=== PATIENT | male | born 1950 | race Caucasian/White ===

== ENCOUNTER 2016-08-06 21:20 | Emergency (ER) | payer MEDICARE ==
[2016-08-06] MEDS ORDERED: Ketorolac 60 MG/2 ML SDV IM ONE (21:38)
[2016-08-06] MEDS ORDERED: methylPREDNISolone Sodium Succinate 125 MG/2 ML SDV IVPUSH ONE (21:38)
--- NOTE | 2016-08-06 21:44 | EDM.PDOC ---
ED HPI GENERAL MEDICAL PROBLEM - General Chief Complaint: General Stated Complaint: SHOULDER/LEFT KNEE PAIN Time Seen by Provider: 08/06/16 21:31 - History of Present Illness INITIAL COMMENTS - FREE TEXT/NARRATIVE: HISTORY AND PHYSICAL: History of present illness: The patient is a 66-year-old male with a history of hyperlipidemia coronary artery disease with STEMI, diabetes hypertension obesity and chronic arthritic and joint pain who presents with complaints of left knee and left shoulder pain that is chronic but has worsened over the last few days. The patient states that he has been putting more pressure on these joints trying to get up off the floor where he has been sleeping due to a housing problem. He has not had a fall on the knee or the shoulder and states that this is his usual pain it has just been progressing. Patient states he has "strong pain medication" at home but that the Toradol usually helps and he would like a dose of that. Patient follows at [facility] with and according to the patient the physician has been trying to get his diabetes under better control so that he can have surgery on his knee. Patient denies any headache neck pain chest pain back pain or other extremity discomfort has been eating and drinking normally Review of systems: As per history of present illness and below otherwise all systems reviewed and negative. Past medical history: As per history of present illness and as reviewed below otherwise noncontributory. Surgical history: As per history of present illness and as reviewed below otherwise noncontributory. Social history: No reported history of drug or alcohol abuse. Family history: As per history of present illness and as reviewed below otherwise noncontributory. Physical exam: General: Well-developed obese man who is nontoxic and speaking clearly in the ED HEENT: Atraumatic, normocephalic, negative for conjunctival pallor or scleral icterus, mucous membranes moist, throat clear, neck supple, nontender, trachea midline. Lungs: Clear to auscultation, breath sounds equal bilaterally, chest nontender. Heart: S1S2, regular rate and rhythm no murmurs Abdomen: Soft, nondistended, nontender. NABS Genitourinary: Deferred. Rectal: Deferred. Extremities: Atraumatic chronic arthritic changes of bilateral knees the left more significant than the right but there is no joint effusion warmth erythema or soft tissue swelling of the left knee. There are old scars seen in this area. At the left shoulder there are no palpable bony deformities noted trigger point tenderness or fullness and the patient has no range of motion passively and actively. Tenderness with this exam. The legs are, negative for cords or calf pain. Neurovascular unremarkable. Neuro: Awake, alert, oriented. Cranial nerves II through XII unremarkable. Cerebellum unremarkable. Motor and sensory unremarkable throughout. Exam nonfocal. Diagnostics: [] Therapeutics: Toradol and Solu-Medrol I discussed with the patient that I would give him 1 dose of Solu-Medrol as his blood sugar has been very variable and his provider has been trying but I thought that might help with the inflammation. He is agreeable to do this. I did not offer radiologic studies as the patient did not have any new trauma to the area and the patient elected to defer these as well. I did address the need for follow-up. Impression: Chronic arthritic pain of left knee and left shoulder Definitive disposition and diagnosis as appropriate pending reevaluation and review of above. left shoulder; left knee Pain Score (Numeric/FACES): 10 - Related Data Allergies Allergy/AdvReac Type Severity Reaction Status Date / Time morphine Allergy Shortness Verified 08/06/16 21:31 of Breath smoke Allergy Shortness Uncoded 08/06/16 21:31 of Breath Home Meds: Home Meds Esomeprazole [NexIUM] 40 mg PO BIDM 05/30/13 [History] Quinapril [Accupril] 40 mg PO BID 05/30/13 [History] Metoprolol Succinate [Toprol XL] 50 mg PO BID 06/23/13 [History] metFORMIN [Glucophage XR] 750 mg PO BID 10/11/13 [History] Aspirin [Ecotrin] 325 mg PO DAILY 07/15/14 [History] Furosemide [Lasix] 20 mg PO DAILY #14 tablet 01/16/15 [Rx] Hydrocodone/Acetaminophen [[place] 5-325 Tablet] 1 each PO Q6H PRN #20 tablet [Rx] Past Medical History - Past Health History Medical/Surgical History: Denies Medical/Surgical History HEENT History: Reports: Sinusitis Cardiovascular History: Reports: Hypertension Other Genitourinary History: complains of frequent urination at night time Musculoskeletal History: Reports: Back Pain, Chronic Endocrine/Metabolic History: Reports: Diabetes, Type II - Infectious Disease History Infectious 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 Pox - Past Surgical History HEENT Surgical History: Reports: Naso-Sinus Surgery, Tonsillectomy, Other (See Below) Cardiovascular Surgical History: Reports: Other (See Below) Social & Family History - Family History Family Medical History: Noncontributory - Tobacco Use Smoking Status *Q: Never Smoker Second Hand Smoke Exposure: No - Alcohol Use Days Per Week of Alcohol Use: 0 - Recreational Drug Use Recreational Drug Use: No ED ROS GENERAL - Review of Systems Review Of Systems: ROS reveals no pertinent complaints other than HPI. ED EXAM, GENERAL - Physical Exam Exam: See Below (See dictation) Course - Vital Signs Last Recorded V/S: Last Vital Signs Temp 36.4 C 08/06/16 21:32 Pulse 73 08/06/16 21:32 Resp 20 08/06/16 21:32 BP 151/72 H 08/06/16 21:32 Pulse Ox 93 L 08/06/16 21:32 - Orders/Labs/Meds Orders: Active Orders 24 hr Category Date Time Status Ketorolac [Toradol] Med 08/06/16 21:38 Once 60 mg IM ONETIME ONE methylPREDNISolone Sod Succ [Solu-MEDROL] Med 08/06/16 21:38 Once 125 mg IVPUSH ONETIME ONE Medication Orders Ketorolac Tromethamine (Toradol) 60 mg IM ONETIME ONE Stop: 08/06/16 21:39 Methylprednisolone Sodium Succinate (Solu-Medrol) 125 mg IVPUSH ONETIME ONE Stop: 08/06/16 21:39 Meds: Medications Generic Name Dose Route Start Last Admin Trade Name Freq PRN Reason Stop Dose Admin Ketorolac Tromethamine 60 mg 08/06/16 21:38 Toradol IM 08/06/16 21:39 ONETIME ONE Methylprednisolone Sodium Succinate 125 mg 08/06/16 21:38 Solu-Medrol IVPUSH 08/06/16 21:39 ONETIME ONE Departure - Departure Time of Disposition: 21:42 Disposition: Home, Self-Care 01 Condition: Good Clinical Impression: Chronic joint pain - Discharge Information Forms: ED Department Discharge Additional Instructions: The following information is given to patients seen in the emergency department who are being discharged to home. This information is to outline your options for follow-up care. We provide all patients seen in our emergency department with a follow-up referral. The need for follow-up, as well as the timing and circumstances, are variable depending upon the specifics of your emergency department visit. If you don't have a primary care physician on staff, we will provide you with a referral. We always advise you to contact your personal physician following an emergency department visit to inform them of the circumstance of the visit and for follow-up with them and/or the need for any referrals to a consulting specialist. The emergency department will also refer you to a specialist when appropriate. This referral assures that you have the opportunity for followup care with a specialist. All of these measure are taken in an effort to provide you with optimal care, which includes your followup. Under all circumstances we always encourage you to contact your private physician who remains a resource for coordinating your care. When calling for followup care, please make the office aware that this follow-up is from your recent emergency room visit. If for any reason you are refused follow-up, please contact the [facility] emergency department at and ask to speak to the emergency department charge nurse. [address] [place], [place] [address] [facility]--Orthopedic clinic Professional [address] [phone] Ice to areas of discomfort and use the pain medication you have at home. Please call and follow-up with your primary at [facility] as well as orthopedics clinic for further care and evaluation and return here as needed and as discussed. - My Orders Last 24 Hours: My Active Orders 08/06/16 21:38 Ketorolac [Toradol] 60 mg IM ONETIME ONE methylPREDNISolone Sod Succ [Solu-MEDROL] 125 mg IVPUSH ONETIME ONE - Assessment/Plan Last 24 Hours: My Active Orders 08/06/16 21:38 Ketorolac [Toradol] 60 mg IM ONETIME ONE methylPREDNISolone Sod Succ [Solu-MEDROL] 125 mg IVPUSH ONETIME ONE
[2016-08-06] MEDS ORDERED: methylPREDNISolone Sodium Succinate 125 MG/2 ML SDV IM ONE (21:51)
[2016-08-06 22:54] VITALS: BP 160/90
== END 2016-08-06 22:30 | disposition home or self-care (01) ==
LOC: MW.ED 21:20
DX: G89.29 Other chronic pain (principal); M25.512 Pain in left shoulder; M25.562 Pain in left knee; I10 Essential (primary) hypertension; E11.9 Type 2 diabetes mellitus without complications; I25.10 Atherosclerotic heart disease of native coronary artery without angina pectoris; I25.2 Old myocardial infarction; E66.9 Obesity, unspecified; Z88.5 Allergy status to narcotic agent; Z79.84 Long term (current) use of oral hypoglycemic drugs; Z79.82 Long term (current) use of aspirin; Z79.899 Other long term (current) drug therapy; Z98.890 Other specified postprocedural states
CPT/HCPCS: 96372; 99283; J1885; J2930

== ENCOUNTER 2016-08-26 23:08 | Emergency (ER) | payer MEDICARE ==
--- NOTE | 2016-08-26 23:52 | EDM.PDOC ---
ED HPI GENERAL MEDICAL PROBLEM - General Chief Complaint: Lower Extremity Injury/Pain Stated Complaint: POSSIBLY POPPED RIGHT HIP OUT OF JOINT Time Seen by Provider: 08/26/16 23:50 - History of Present Illness INITIAL COMMENTS - FREE TEXT/NARRATIVE: HISTORY AND PHYSICAL: History of present illness: Patient is 66-year-old male thinks that medical history presents with concern of right hip and lower back pain he states he felt like he twisted his hip or lower back and had some discomfort this is improved since arrival he denies any numbness weakness incontinence or retention bowel or bladder patient uses a cane for his chronically painful knees Review of systems: As per history of present illness and below otherwise all systems reviewed and negative. Past medical history: As per history of present illness and as reviewed below otherwise noncontributory. Surgical history: As per history of present illness and as reviewed below otherwise noncontributory. Social history: No reported history of drug or alcohol abuse. Family history: As per history of present illness and as reviewed below otherwise noncontributory. Physical exam: HEENT: Atraumatic, normocephalic, pupils reactive, negative for conjunctival pallor or scleral icterus, mucous membranes moist, throat clear, neck supple, nontender, trachea midline. Lungs: Clear to auscultation, breath sounds equal bilaterally, chest nontender. Heart: S1S2, regular, negative for clicks, rubs, or JVD. Abdomen: Soft, nondistended, nontender. Negative for masses or hepatosplenomegaly. Negative for costovertebral tenderness. Pelvis: Stable nontender. Genitourinary: Deferred. Rectal: Deferred. Extremities: Atraumatic, negative for cords or calf pain. Neurovascular unremarkable. Neuro: Awake, alert, oriented. Cranial nerves II through XII unremarkable. Cerebellum unremarkable. Motor and sensory unremarkable throughout. Exam nonfocal. Back: No vertebral body or point tenderness some mild paravertebral tenderness level lumbar spine full range of motion of his hip patient is able to stand on his toes back on his heel deep tendon reflexes are unremarkable was no motor or sensory deficits Diagnostics: X-ray right hip/lumbosacral spine Therapeutics: None Impression: #1 lumbosacral strain Definitive disposition and diagnosis as appropriate pending reevaluation and review of above. Right Hip Pain Score (Numeric/FACES): 8 - Related Data Allergies Allergy/AdvReac Type Severity Reaction Status Date / Time morphine Allergy Shortness Verified 08/26/16 23:25 of Breath smoke Allergy Shortness Uncoded 08/26/16 23:25 of Breath Home Meds: Home Meds Esomeprazole [NexIUM] 40 mg PO BIDM 05/30/13 [History] Quinapril [Accupril] 40 mg PO BID 05/30/13 [History] Metoprolol Succinate [Toprol XL] 50 mg PO BID 06/23/13 [History] metFORMIN [Glucophage XR] 750 mg PO BID 10/11/13 [History] Aspirin [Ecotrin] 325 mg PO DAILY 07/15/14 [History] Furosemide [Lasix] 20 mg PO DAILY #14 tablet 01/16/15 [Rx] Past Medical History - Past Health History Medical/Surgical History: Denies Medical/Surgical History HEENT History: Reports: Sinusitis Cardiovascular History: Reports: Hypertension Other Genitourinary History: complains of frequent urination at night time Musculoskeletal History: Reports: Back Pain, Chronic Endocrine/Metabolic History: Reports: Diabetes, Type II - Infectious Disease History Infectious 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 Pox - Past Surgical History HEENT Surgical History: Reports: Naso-Sinus Surgery, Tonsillectomy, Other (See Below) Cardiovascular Surgical History: Reports: Other (See Below) Social & Family History - Family History Family Medical History: Noncontributory - Tobacco Use Smoking Status *Q: Never Smoker Second Hand Smoke Exposure: No - Caffeine Use Caffeine Use: Reports: None - Alcohol Use Days Per Week of Alcohol Use: 0 - Recreational Drug Use Recreational Drug Use: No Review of Systems - Review of Systems Review Of Systems: ROS reveals no pertinent complaints other than HPI. ED EXAM, GENERAL - Physical Exam Exam: See Below (See dictation) Course - Vital Signs Last Recorded V/S: Last Vital Signs Temp 36.6 C 08/26/16 23:24 Pulse 70 08/26/16 23:24 Resp 20 08/26/16 23:24 BP 190/63 H 08/26/16 23:24 Pulse Ox 93 L 08/26/16 23:24 - Orders/Labs/Meds Orders: Active Orders 24 hr Category Date Time Status Hip Min 2V or 3V Rt [CR] Stat Exams 08/26/16 23:29 Ordered Lumbar Spine 2 or 3V [CR] Stat Exams 08/26/16 23:29 Ordered Departure - Departure Time of Disposition: 23:51 Disposition: Home, Self-Care 01 Condition: Good Clinical Impression: Lumbosacral strain, Hip injury - Discharge Information Forms: ED Department Discharge Additional Instructions: The following information is given to patients seen in the emergency department who are being discharged to home. This information is to outline your options for follow-up care. We provide all patients seen in our emergency department with a follow-up referral. The need for follow-up, as well as the timing and circumstances, are variable depending upon the specifics of your emergency department visit. If you don't have a primary care physician on staff, we will provide you with a referral. We always advise you to contact your personal physician following an emergency department visit to inform them of the circumstance of the visit and for follow-up with them and/or the need for any referrals to a consulting specialist. The emergency department will also refer you to a specialist when appropriate. This referral assures that you have the opportunity for followup care with a specialist. All of these measure are taken in an effort to provide you with optimal care, which includes your followup. Under all circumstances we always encourage you to contact your private physician who remains a resource for coordinating your care. When calling for followup care, please make the office aware that this follow-up is from your recent emergency room visit. If for any reason you are refused follow-up, please contact the [facility] emergency department at and asked to speak to the emergency department charge nurse. Continue current medications follow-up primary medical doctor on today's return as needed as discussed - My Orders Last 24 Hours: My Active Orders 08/26/16 23:29 Hip Min 2V or 3V Rt [CR] Stat Lumbar Spine 2 or 3V [CR] Stat - Assessment/Plan Last 24 Hours: My Active Orders 08/26/16 23:29 Hip Min 2V or 3V Rt [CR] Stat Lumbar Spine 2 or 3V [CR] Stat
[2016-08-27] MEDS ORDERED: Ketorolac 30 MG/ML SDV IM ONE (00:44)
[2016-08-27 01:16] VITALS: BP 156/70
--- NOTE | 2016-08-29 11:49 | CR ---
EXAM DATE: 08/26/16 PATIENT'S AGE: 66 Patient: MARIANA HARRIS Facility: [place], [place] Site . Site : 1950 Study: XRay Spine Lumbar [id number]/[id number] 11:56:40 PM Ordering Physician: Doctor Smiley Final Report: INDICATION: Status post fall. TECHNIQUE: Lumbar spine radiograph 3 view COMPARISON: 02/06/2008. FINDINGS: Postsurgical changes in the lumbar spine. Posterior and interbody fusion, extending from L1 to the L5 level. Extension to the L1 level new finding from prior study. No hardware complication. Progressive degenerative disc disease at the T12-L1 level with large anterior marginal osteophytes. IMPRESSION: 1. Posterior and interbody fusion of lumbar spine. New posterior fusion hardware at the L1 level with progressive degenerative disc disease at the T12- L1 level from 02/06/2008 study. Moderate degenerative disc disease also noted at T10-T11 and T11-T12 levels. Dictated by Willi Avalos MD @ 08/27/2016 12:04:36 AM Dictated by: Willi Avalos MD @ 08/27/2016 00:04:41 (Electronic Signature) Report Signed by Proxy. NADJA
--- NOTE | 2016-08-29 11:50 | CR ---
EXAM DATE: 08/26/16 PATIENT'S AGE: 66 Patient: MARIANA HARRIS Facility: [place], [place] Site . Site : 1950 Study: XRay Hip Right [id number] 11:57:21 PM Ordering Physician: Doctor Smiley Final Report: INDICATION: Pelvic and hip pain TECHNIQUE: AP pelvis and lateral view right hip, total of 2 images. COMPARISON: None FINDINGS: Moderate degenerative changes of right hip. No fracture or suspicious osseous lesion. Right pubic rami grossly intact. No suspicious osseous lesion. IMPRESSION: 1. Moderate right hip osteoarthritis. No acute osseous injury. Dictated by Willi Avalos MD @ 08/27/2016 12:06:18 AM Dictated by: Willi Avalos MD @ 08/27/2016 00:06:22 (Electronic Signature) Report Signed by Proxy. [email or web address]
== END 2016-08-27 01:13 | disposition home or self-care (01) ==
LOC: MW.ED 23:08
DX: S39.012A Strain of muscle, fascia and tendon of lower back, initial encounter (principal); S79.911A Unspecified injury of right hip, initial encounter; I10 Essential (primary) hypertension; E11.9 Type 2 diabetes mellitus without complications; Z88.5 Allergy status to narcotic agent; Z79.84 Long term (current) use of oral hypoglycemic drugs; Z79.82 Long term (current) use of aspirin; Z98.890 Other specified postprocedural states; X50.9XXA Other and unspecified overexertion or strenuous movements or postures, initial encounter
CPT/HCPCS: 72100; 73502; 96372; 99283; J1885; 99282

== ENCOUNTER 2016-09-14 12:07 | Observation (INO) | payer MEDICARE ==
--- NOTE | 2016-09-14 12:30 | EDM.PDOC ---
ED HPI GENERAL MEDICAL PROBLEM - General Stated Complaint: HIGH BLOOD PRESSURE, ILL, VOMITING Time Seen by Provider: 09/14/16 12:37 Source of Information: Reports: Patient History Limitations: Reports: No Limitations - History of Present Illness INITIAL COMMENTS - FREE TEXT/NARRATIVE: HISTORY AND PHYSICAL: []66-year-old male who is presenting with nausea vomiting chest tightness History of Present Illness: []Patient started becoming ill today is diaphoretic Review of Systems: As per history of present illness and below otherwise all systems reviewed and negative. Past medical history: As per history of present illness and as reviewed below otherwise noncontributory. Surgical history: As per history of present illness and as reviewed below otherwise noncontributory. Social history: No reported history of drug or alcohol abuse. Family history: As per history of present illness and as reviewed below otherwise noncontributory. Physical exam: HEENT: Atraumatic, normocehpalic, pupils reactive, negative for conjunctival pallor or scleral icterus, mucous membranes moist, throat clear, neck supple, nontender, trachea midline. Lungs: Clear to auscultation, breath sounds equal bilaterally, chest non tender. Heart: S1S2, regular, negative for clicks, rubs, or JVD. Abdomen: Soft, nondistended, nontender. Negative for masses or hepatossplenmegaly. Negative for costovertebral tenderness. Pelvis: Stable nontender. Genitourinary: Deferred. Rectal: Deferred Extremities: Atraumatic, negative for cords or calf pain. Neurovascular unremarkable. Neuro: Awake, alert, oriented. Cranial nerves II through XII unremarkable. Cerebellum unremarkable. Motor and sensory unremarkable throughout. Exam nonfocal. Discussed case with Dr. Caal who is agreeable to refer for observation on telemetry. Discussed results with patient and his and they're agreeable for observation Diagnostics: [Chest pain protocol] Therapeutics: [Zofran IV fluid Nitrostat aspirin chewed] Impression: [Chest pain resolved Vomiting] Plan: Refer for observation on telemetry[] Definitive disposition and diagnosis as appropriate pending reevaluation and review of above. Onset: Today, Sudden Duration: Hour(s):, Getting Worse Location: Reports: Generalized Quality: Reports: Pressure Severity: Moderate Worsens with: Reports: None Associated Symptoms: Reports: Nausea/Vomiting forehead Pain Score (Numeric/FACES): 7 - Related Data Allergies Allergy/AdvReac Type Severity Reaction Status Date / Time morphine Allergy Shortness Verified 09/14/16 12:34 of Breath smoke Allergy Shortness Uncoded 09/14/16 12:34 of Breath Home Meds: Home Meds Esomeprazole [NexIUM] 40 mg PO BIDM 05/30/13 [History] Quinapril [Accupril] 40 mg PO BID 05/30/13 [History] Metoprolol Succinate [Toprol XL] 50 mg PO BID 06/23/13 [History] metFORMIN [Glucophage XR] 750 mg PO BID 10/11/13 [History] Aspirin [Ecotrin] 325 mg PO DAILY 07/15/14 [History] Furosemide [Lasix] 20 mg PO DAILY #14 tablet 01/16/15 [Rx] Past Medical History - Past Health History Medical/Surgical History: Denies Medical/Surgical History HEENT History: Reports: Sinusitis Cardiovascular History: Reports: Hypertension Other Genitourinary History: complains of frequent urination at night time Musculoskeletal History: Reports: Back Pain, Chronic Endocrine/Metabolic History: Reports: Diabetes, Type II - Infectious Disease History Infectious 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 Pox - Past Surgical History HEENT Surgical History: Reports: Naso-Sinus Surgery, Tonsillectomy, Other (See Below) Cardiovascular Surgical History: Reports: Other (See Below) Social & Family History - Family History Family Medical History: Noncontributory - Tobacco Use Smoking Status *Q: Never Smoker Second Hand Smoke Exposure: No - Caffeine Use Caffeine Use: Reports: None - Alcohol Use Days Per Week of Alcohol Use: 0 - Recreational Drug Use Recreational Drug Use: No ED ROS GENERAL - Review of Systems Review Of Systems: ROS reveals no pertinent complaints other than HPI. ED EXAM, GENERAL - Physical Exam Exam: See Below (See dictation) EKG INTERPRETATION EKG Date: 09/14/16 Rhythm: NSR Rate (Beats/Min): 71 Comparison: No Change Course - Vital Signs Last Recorded V/S: Last Vital Signs Temp 36.0 C 09/14/16 12:35 Pulse 82 09/14/16 13:08 Resp 18 09/14/16 13:08 BP 128/42 L 09/14/16 13:08 Pulse Ox 94 L 09/14/16 13:08 - Orders/Labs/Meds Orders: Active Orders 24 hr Category Date Time Status Patient Status [ADT] Stat ADT 09/14/16 14:16 Active Cardiac Monitoring [RC] . DIRECTED Care 09/14/16 12:38 Active EKG 12 Lead [EKG Documentation Completion] [RC] STAT Care 09/14/16 12:15 Active EKG Documentation Completion [RC] STAT Care 09/14/16 12:38 Inactive Pulse Oximetry [RC] ASDIRECTED Care 09/14/16 12:38 Active CULTURE BLOOD [BC] Stat Lab 09/14/16 12:53 Received CULTURE BLOOD [BC] Stat Lab 09/14/16 13:12 Received UA W/MICROSCOPIC [URIN] Stat Lab 09/14/16 12:38 Uncollected Sodium Chloride 0.9% [Saline Flush] Med 09/14/16 12:38 Active 10 ml FLUSH ASDIRECTED PRN Sodium Chloride 0.9% [Saline Flush] Med 09/14/16 12:38 Active 2.5 ml FLUSH ASDIRECTED PRN Blood Culture x2 Reflex Set [OM.PC] Stat Oth 09/14/16 12:38 Ordered Saline Lock Insert [OM.PC] Stat Oth 09/14/16 12:38 Ordered Medication Orders Sodium Chloride (Saline Flush) 10 ml FLUSH ASDIRECTED PRN PRN Reason: Keep Vein Open Sodium Chloride (Saline Flush) 2.5 ml FLUSH ASDIRECTED PRN PRN Reason: Keep Vein Open Labs: Laboratory Tests 09/14/16 09/14/16 09/14/16 Range/Units 13:12 13:12 13:12 WBC 7.19 (4.0-11.0) K/uL RBC 4.70 (4.50-5.90) M/uL Hgb 13.9 (13.0-17.0) g/dL Hct 41.5 (38.0-50.0) % MCV 88.3 (80.0-98.0) fL MCH 29.6 (27.0-32.0) pg MCHC 33.5 (31.0-37.0) g/dL RDW Std Deviation 44.3 (28.0-62.0) fl RDW Coeff of Edita 14 (11.0-15.0) % Plt Count 95 L (150-400) K/uL MPV 12.10 H (7.40-12.00) fL Neut % (Auto) 70.0 (48.0-80.0) % Lymph % (Auto) 17.8 (16.0-40.0) % Major % (Auto) 10.0 (0.0-15.0) % Eos % (Auto) 1.9 (0.0-7.0) % Baso % (Auto) 0.3 (0.0-1.5) % Neut # (Auto) 5.0 (1.4-5.7) K/uL Lymph # (Auto) 1.3 (0.6-2.4) K/uL Major # (Auto) 0.7 (0.0-0.8) K/uL Eos # (Auto) 0.1 (0.0-0.7) K/uL Baso # (Auto) 0.0 (0.0-0.1) K/uL Nucleated RBC % 0.0 /100WBC Nucleated RBCs # 0 K/uL INR (0.86-1.11) Lactate 1.9 (0.20-2.00) mmol/L Sodium 136 (136-146) mmol/L Potassium 4.2 (3.5-5.1) mmol/L Chloride 103 (98-110) mmol/L Carbon Dioxide 24 (21-31) mmol/L BUN 21 (6.0-23.0) mg/dL Creatinine 1.1 (0.6-1.5) mg/dL Est Cr Clr Drug Dosing TNP Estimated GFR (MDRD) > 60.0 ml/min Glucose 212 H (60-110) mg/dL Calcium 8.4 L (8.8-10.8) mg/dL Total Bilirubin 0.5 (0.1-1.5) mg/dL AST 21 (5-40) IU/L ALT 17 (8-54) IU/L Alkaline Phosphatase 62 (40-150) Ammonia (14-68) UG/DL Troponin I (0.0-0.29) NG/ML Total Protein 6.5 (6.0-8.0) g/dL Albumin 3.5 (3.4-4.8) g/dL Globulin 3.0 (2.0-3.5) g/dL Albumin/Globulin Ratio 1.2 L (1.3-2.8) Amylase 41 (10-90) U/L 09/14/16 09/14/16 09/14/16 Range/Units 13:12 13:12 13:12 WBC (4.0-11.0) K/uL RBC (4.50-5.90) M/uL Hgb (13.0-17.0) g/dL Hct (38.0-50.0) % MCV (80.0-98.0) fL MCH (27.0-32.0) pg MCHC (31.0-37.0) g/dL RDW Std Deviation (28.0-62.0) fl RDW Coeff of Edita (11.0-15.0) % Plt Count (150-400) K/uL MPV (7.40-12.00) fL Neut % (Auto) (48.0-80.0) % Lymph % (Auto) (16.0-40.0) % Major % (Auto) (0.0-15.0) % Eos % (Auto) (0.0-7.0) % Baso % (Auto) (0.0-1.5) % Neut # (Auto) (1.4-5.7) K/uL Lymph # (Auto) (0.6-2.4) K/uL Major # (Auto) (0.0-0.8) K/uL Eos # (Auto) (0.0-0.7) K/uL Baso # (Auto) (0.0-0.1) K/uL Nucleated RBC % /100WBC Nucleated RBCs # K/uL INR 1.01 (0.86-1.11) Lactate (0.20-2.00) mmol/L Sodium (136-146) mmol/L Potassium (3.5-5.1) mmol/L Chloride (98-110) mmol/L Carbon Dioxide (21-31) mmol/L BUN (6.0-23.0) mg/dL Creatinine (0.6-1.5) mg/dL Est Cr Clr Drug Dosing Estimated GFR (MDRD) ml/min Glucose (60-110) mg/dL Calcium (8.8-10.8) mg/dL Total Bilirubin (0.1-1.5) mg/dL AST (5-40) IU/L ALT (8-54) IU/L Alkaline Phosphatase (40-150) Ammonia 51 (14-68) UG/DL Troponin I < 0.10 (0.0-0.29) NG/ML Total Protein (6.0-8.0) g/dL Albumin (3.4-4.8) g/dL Globulin (2.0-3.5) g/dL Albumin/Globulin Ratio (1.3-2.8) Amylase (10-90) U/L Meds: Medications Generic Name Dose Route Start Last Admin Trade Name Freq PRN Reason Stop Dose Admin Sodium Chloride 10 ml 09/14/16 12:38 Saline Flush FLUSH ASDIRECTED PRN Keep Vein Open Sodium Chloride 2.5 ml 09/14/16 12:38 Saline Flush FLUSH ASDIRECTED PRN Keep Vein Open Discontinued Medications Generic Name Dose Route Start Last Admin Trade Name Freq PRN Reason Stop Dose Admin Aspirin 324 mg 09/14/16 12:46 09/14/16 13:00 Aspirin PO 09/14/16 12:47 324 mg ONETIME ONE Administration Famotidine 20 mg 09/14/16 12:47 09/14/16 12:55 Pepcid IVPUSH 09/14/16 12:48 20 mg ONETIME ONE Administration Sodium Chloride 1,000 mls @ 999 mls/hr 09/14/16 12:37 09/14/16 12:59 Normal Saline IV 09/14/16 13:37 999 mls/hr STAT ONE Administration Nitroglycerin 0.4 mg 09/14/16 12:47 09/14/16 12:59 Nitrostat SL 09/14/16 12:48 0.4 mg ONETIME ONE Administration Ondansetron HCl 4 mg 09/14/16 12:37 09/14/16 12:47 Zofran IVPUSH 09/14/16 12:38 4 mg ONETIME ONE Administration Departure - Departure Time of Disposition: 14:19 Disposition: Refer to Observation Condition: Good Clinical Impression: Chest pain Qualifiers: Chest pain type: unspecified Qualified Code(s): R07.9 - Chest pain, unspecified - Discharge Information - My Orders Last 24 Hours: My Active Orders 09/14/16 12:15 EKG 12 Lead [EKG Documentation Completion] [RC] STAT 09/14/16 12:38 Cardiac Monitoring [RC] . DIRECTED EKG Documentation Completion [RC] STAT Pulse Oximetry [RC] ASDIRECTED UA W/MICROSCOPIC [URIN] Stat Sodium Chloride 0.9% [Saline Flush] 10 ml FLUSH ASDIRECTED PRN Sodium Chloride 0.9% [Saline Flush] 2.5 ml FLUSH ASDIRECTED PRN Blood Culture x2 Reflex Set [OM.PC] Stat Saline Lock Insert [OM.PC] Stat 09/14/16 12:53 CULTURE BLOOD [BC] Stat 09/14/16 13:12 CULTURE BLOOD [BC] Stat 09/14/16 14:16 Patient Status [ADT] Stat - Assessment/Plan Last 24 Hours: My Active Orders 09/14/16 12:15 EKG 12 Lead [EKG Documentation Completion] [RC] STAT 09/14/16 12:38 Cardiac Monitoring [RC] . DIRECTED EKG Documentation Completion [RC] STAT Pulse Oximetry [RC] ASDIRECTED UA W/MICROSCOPIC [URIN] Stat Sodium Chloride 0.9% [Saline Flush] 10 ml FLUSH ASDIRECTED PRN Sodium Chloride 0.9% [Saline Flush] 2.5 ml FLUSH ASDIRECTED PRN Blood Culture x2 Reflex Set [OM.PC] Stat Saline Lock Insert [OM.PC] Stat 09/14/16 12:53 CULTURE BLOOD [BC] Stat 09/14/16 13:12 CULTURE BLOOD [BC] Stat 09/14/16 14:16 Patient Status [ADT] Stat
[2016-09-14] MEDS ORDERED: Ondansetron 4 MG/2 ML SDV IVPUSH ONE (12:37)
[2016-09-14] MEDS ORDERED: Sodium Chloride 0.9% 1,000 ML IV ONE (12:37)
[2016-09-14] MEDS ORDERED: Sodium Chloride 0.9% 2.5 ML Syringe FLUSH PRN (12:38)
[2016-09-14] MEDS ORDERED: Sodium Chloride 0.9% 10 ML Syringe FLUSH PRN (12:38)
[2016-09-14] MEDS ORDERED: Aspirin 81 MG Tab.Chew PO ONE (12:46)
[2016-09-14] MEDS ORDERED: Famotidine 20 MG/2 ML SDV IVPUSH ONE (12:47)
[2016-09-14] MEDS ORDERED: Nitroglycerin 0.4 MG Tab.SL SL ONE (12:47)
[2016-09-14 13:47] LABS: CHLORIDE,CL 103 mmol/L (98-110); SODIUM,NA 136 mmol/L (136-146)
--- NOTE | 2016-09-14 14:14 | CR ---
EXAMINATION: Portable chest radiograph. HISTORY: Chest pain. Comparison: 01/15/2015. FINDINGS: The trachea is midline. The heart is borderline in size. The cardiomediastinal silhouette is within normal limits. No pulmonary infiltrates, effusions or pneumothorax. Osseous structures appear unremarkable. IMPRESSION: No acute cardiopulmonary process.
--- NOTE | 2016-09-14 16:15 | PCM.HP ---
H&P History of Present Illness - General Date of Service: 09/14/16 Admit Problem/Dx: Chest pain Source of Information: Patient History Limitations: Reports: No Limitations - History of Present Illness Initial Comments - Free Text/Narative: This 66 year old male with pmh which is significant for CAD with stents x8, TN , HTN, morbid obesity, and chronic pain presented to the ED today with complaints of chest tightness. He reports feeling ill this morning with nausea and vomiting and started experiencing this chest tightness. He reports some SOB. Denies diaphoresis or palpitations. He denies eating any strange or bad foods. No diarrhea. He reports this tightness is different from previous TN episodes, which were more midsternal pain with radiation to jaw and L arm. At the time of his chest tightness he checked his BP, which was elevated 220/100s in both arms. This is abnormal for him. He walks infrequently due to chronic bilateral knee pain, he is in need of knee replacements but was instructed to lose weight and better management of DM. Did have a chemical stress test 6-8 months ago in [place], [place], he reports everything was good and did not need any further stenting. In the ED Plt noted to be 75, currently on Plavix. No bleeding. Troponin negative. EKG SR with no acute ST segment changes. No change from previous EKGs. CXR negative. PCP, Dr. Murrell forehead Pain Score (Numeric/FACES): 7 - Related Data Allergies/Adverse Reactions: Allergies Allergy/AdvReac Type Severity Reaction Status Date / Time morphine Allergy Shortness Verified 09/14/16 12:34 of Breath smoke Allergy Shortness Uncoded 09/14/16 12:34 of Breath Home Medications: Home Meds Esomeprazole [NexIUM] 40 mg PO ACBREAKFAST 05/30/13 [History] Quinapril [Accupril] 40 mg PO BID 05/30/13 [History] Metoprolol Succinate [Toprol XL] 100 mg PO DAILY 06/23/13 [History] metFORMIN [Glucophage XR] 750 mg PO BIDMEALS 10/11/13 [History] ClonazePAM [KlonoPIN] 0.5 mg PO BID PRN 09/14/16 [History] Fluticasone Propionate [Flonase] 2 sprays NASBOTH DAILY PRN 09/14/16 [History] Furosemide [Lasix] 40 mg PO DAILY PRN 09/14/16 [History] HYDROmorphone HCl [Dilaudid] 8 mg PO Q4H PRN 09/14/16 [History] Insulin Glarg,Human.Rec.Analog [LantUS Solostar] 55 units SUBCUT BEDTIME [History] Insulin Lispro [Humalog Kwikpen U-200] 20 units SUBCUT TIDAC 09/14/16 [History] Clopidogrel [Plavix] 75 mg PO DAILY #0 09/15/16 [Rx] Hydrochlorothiazide 25 mg PO DAILY #30 tablet 09/15/16 [Rx] Past Medical History - Past Health History Medical/Surgical History: Denies Medical/Surgical History HEENT History: Reports: Sinusitis Cardiovascular History: Reports: Blood Clots/VTE/DVT, CAD, Hypertension, [place], Stents (x8). Denies: Afib Respiratory History: Reports: Sleep Apnea (does not use CPAP). Denies: COPD Genitourinary History: Denies: Acute Renal Failure, Chronic Renal Insuffiency Other Genitourinary History: complains of frequent urination at night time Musculoskeletal History: Reports: Back Pain, Chronic, Osteoarthritis (bilateral knees) Endocrine/Metabolic History: Reports: Diabetes, Type II, Obesity/BMI 30+. Denies: Hypothyroidism - Infectious Disease History Infectious 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 Pox - Past Surgical History HEENT Surgical History: Reports: Naso-Sinus Surgery, Tonsillectomy, Other (See Below) Endocrine Surgical History: Reports: None Musculoskeletal Surgical History: Reports: Knee Replacement Other Musculoskeletal Surgeries/Procedures:: left knee replacement Social & Family History - Family History Family Medical History: Noncontributory - Tobacco Use Smoking Status *Q: Never Smoker Second Hand Smoke Exposure: No - Caffeine Use Caffeine Use: Reports: None - Alcohol Use Days Per Week of Alcohol Use: 0 - Recreational Drug Use Recreational Drug Use: No - Living Situation & Occupation Living situation: Reports: Occupation: Disabled H&P Review of Systems - Review of Systems: Review Of Systems: See Below General: Reports: No Symptoms. Denies: Fever, Chills, Malaise HEENT: Reports: No Symptoms. Denies: Headaches, Sinus Congestion, Visual Changes Pulmonary: Reports: No Symptoms. Denies: Shortness of Breath, Cough, Sputum Cardiovascular: Reports: Chest Pain (tightness this morning, now gone after SL nitro), Edema Gastrointestinal: Reports: Flatus, Nausea, Vomiting. Denies: Abdominal Pain, Black Stool, Bloody Stool Genitourinary: Reports: No Symptoms. Denies: Dysuria, Frequency, Burning Musculoskeletal: Reports: No Symptoms Skin: Reports: No Symptoms Psychiatric: Reports: No Symptoms Neurological: Reports: No Symptoms Hematologic/Lymphatic: Reports: No Symptoms Immunologic: Reports: No Symptoms Exam - Exam Exam: See Below - Vital Signs Vital Signs: Last Vital Signs Temp 96.8 F 09/14/16 12:35 Pulse 64 09/14/16 15:41 Resp 18 09/14/16 15:41 BP 190/92 H 09/14/16 15:41 Pulse Ox 90 L 09/14/16 15:41 Weight: 171.549 kg - Exam General: Alert, Oriented, Cooperative HEENT: Conjunctiva Clear, Hearing Intact, Mucosa Moist & Plainedge, Nares Patent, PERRLA Neck: Supple, Trachea Midline Lungs: Clear to Auscultation, Normal Respiratory Effort Cardiovascular: Regular Rate, Regular Rhythm, Normal S1, Normal S2, Systolic Murmur GI/Abdominal Exam: Normal Bowel Sounds, Soft, Non-Tender, Other (obese abdomen) Extremities: Normal Range of Motion, Pedal Edema (+1-2 edema bilateral lower legs) Skin: Warm, Dry, Intact Neuro Extensive - Mental Status: Alert, Oriented x3 Neuro Extensive - Motor, Sensory, Reflexes: CN II-XII Intact Psychiatric: Alert, Normal Affect, Normal Mood - Patient Data Result Diagrams: 09/14/16 13:12 09/14/16 13:12 *Q Meaningful Use (ADM) - VTE *Q VTE Criteria *Q: - VTE Risk Assess *Q Each Risk Factor Represents 1 Point: Swollen Legs, Current Total Score 1 Point Risk Factors: 1 Each Risk Factor Represents 2 Points: Age 60 - 74 Years Total Score 2 Point Risk Factors: 2 Each Risk Factor Represents 3 Points: BMI Greater than 50 (Venous Stasis Syndrome), History Superficial Venous Thrombosis, DVT or PE Total Score 3 Point Risk Factors: 6 Each Risk Factor Represents 5 Points: None Total Score 5 Point Risk Factors: 0 Venous Thromboembolism Risk Factor Score *Q: 9 - Stroke *Q Stroke Criteria *Q: - AMI *Q AMI Criteria *Q: - Problem List (1) Chest pain SNOMED Code(s): 68732276 ICD Code: R07.9 - CHEST PAIN, UNSPECIFIED Status: Acute Current Visit: Yes Qualifiers: Chest pain type: unspecified Qualified Code(s): R07.9 - Chest pain, unspecified (2) Morbid obesity SNOMED Code(s): 267344960, [id number] ICD Code: E66.01 - MORBID (SEVERE) OBESITY DUE TO EXCESS CALORIES Status: Chronic Current Visit: Yes (3) CAD (coronary artery disease) SNOMED Code(s): 45243865 ICD Code: I25.10 - ATHSCL HEART DISEASE OF [place] CORONARY ARTERY W/O ANG PCTRS Status: Chronic Current Visit: No (4) HLD (hyperlipidemia) SNOMED Code(s): 33752388 ICD Code: E78.5 - HYPERLIPIDEMIA, UNSPECIFIED Status: Chronic Current Visit: No (5) HTN (hypertension) SNOMED Code(s): 53350562 ICD Code: I10 - ESSENTIAL (PRIMARY) HYPERTENSION Status: Chronic Current Visit: No Qualifiers: Hypertension type: essential hypertension Qualified Code(s): I10 - Essential (primary) hypertension (6) Type 2 diabetes mellitus SNOMED Code(s): 51560922 ICD Code: E11.9 - TYPE 2 DIABETES MELLITUS WITHOUT COMPLICATIONS Status: Chronic Current Visit: No Qualifiers: Diabetes mellitus complication status: with hyperglycemia Diabetes mellitus salvage determiner insulin use: with salvage determiner use Qualified Code(s): E11.65 - Type 2 diabetes mellitus with hyperglycemia; Z79.4 - intermodal owner operator truck driver (current) use of insulin Problem List Initiated/Reviewed/Updated: No Orders Last 24hrs: Medication Orders Sodium Chloride (Saline Flush) 10 ml FLUSH ASDIRECTED PRN PRN Reason: Keep Vein Open Sodium Chloride (Saline Flush) 2.5 ml FLUSH ASDIRECTED PRN PRN Reason: Keep Vein Open Assessment/Plan Comment:: This 66 year old male admitted with chest pain 1. Chest pain: Trend troponins, monitor on telemetry. Will obtain records from recent chemical stress test from [facility] 2. Nausea: Monitor, did improve in ED with Zofran. 3. HTN: Elevated, will add HCTZ. Continue Metoprolol and Quinapril 4. CAD: Continue Plavix. 5. DM: Continue Lantus and Humalog. Monitor BS TID AC. 6.Peripheral edema: Continue Lasix. VTE prophylaxis: Lovenox Dispo: Possible DC in am. DISCHARGE PLAN: Aldo was admitted and serial troponins were monitored. These all returned negative and he had no ST segment changes on telemetry. He had no further chest pain. He reports this doesn't seem like his typical chest pain, cardiac related pain. He feels this was related to his constipation. he was given an Enema today and had a good BM prior to discharge. Due to extensive cardiac history I recommend he follow up with his dedicated intermodal truck driver for stress test. He would like to go back to [facility] to see Dr. Jensen. We will arrange this appointment for him. On admission his blood pressure was elevated 200/100s. HCTZ was added to current regimen with good decrease in BPs to 140-160s SBP. He reported only taking 1/2 of his Plavix due to upcoming knee surgery, but no date is set and no provider told him to do this. He was encouraged to continue taking full dose Plavix until surgery is planned and he follows his surgery teams recommendations. He is to return to ED or clinic if concerns should arise.
[2016-09-14] MEDS ORDERED: Furosemide 20 MG Tab PO PRN (16:43)
[2016-09-14] MEDS ORDERED: ClonazePAM 0.5 MG Tab PO PRN (16:43)
[2016-09-14] MEDS ORDERED: HYDROMORPHONE 8 MG PO PRN (16:43)
[2016-09-14] MEDS ORDERED: Fluticasone Propionate Nasal Spray 16 GM Bottle NASBOTH PRN (16:43)
[2016-09-14] MEDS ORDERED: Acetaminophen 325 MG Tab PO PRN (16:44)
[2016-09-14] MEDS ORDERED: Ondansetron 4 MG/2 ML SDV IVPUSH PRN (16:44)
[2016-09-14] MEDS: Hydrochlorothiazide 25 MG Tab PO SCH (17:00)
[2016-09-14] MEDS ORDERED: HYDROmorphone 2 MG Tab PO PRN (17:15)
[2016-09-14] MEDS: METFORMIN XR 750MG PO SCH (17:22)
[2016-09-14] MEDS: Insulin Aspart 100 Units/ML 3 ML Pen SUBCUT SCH (17:48)
[2016-09-14] MEDS ORDERED: Insulin Glargine,Human Rec. Analog 100 Units/ML 3 ML Pen SUBCUT SCH (21:00)
[2016-09-15] MEDS ORDERED: Omeprazole 20 MG Cap.CR PO SCH (07:30)
[2016-09-15 08:14] VITALS: BP 149/76
[2016-09-15] MEDS: Insulin Aspart 100 Units/ML 3 ML Pen SUBCUT SCH ×2 (08:53→12:32)
[2016-09-15] MEDS: Hydrochlorothiazide 25 MG Tab PO SCH (08:55)
[2016-09-15] MEDS ORDERED: Enoxaparin 40 MG/0.4 ML Syringe SUBCUT SCH (09:00)
[2016-09-15] MEDS ORDERED: Metoprolol Succinate 50 MG Tab.ER PO SCH (09:00)
[2016-09-15] MEDS ORDERED: Clopidogrel 75 MG Tab PO SCH (09:00)
[2016-09-15] MEDS: METFORMIN XR 750MG PO SCH (09:09)
== END 2016-09-15 13:45 | disposition home or self-care (01) ==
LOC: MW.ED 12:07 → MW.MS 14:32
PROVIDERS: ADMIT Internal Medicine; ATTEND Internal Medicine
DX: R07.9 Chest pain, unspecified (principal); I10 Essential (primary) hypertension; I25.10 Atherosclerotic heart disease of native coronary artery without angina pectoris; E66.01 Morbid (severe) obesity due to excess calories; I12.9 Hypertensive chronic kidney disease with stage 1 through stage 4 chronic kidney disease, or unspecified chronic kidney disease; E11.22 Type 2 diabetes mellitus with diabetic chronic kidney disease; I25.2 Old myocardial infarction; G47.30 Sleep apnea, unspecified; N18.9 Chronic kidney disease, unspecified; E78.5 Hyperlipidemia, unspecified; E11.65 Type 2 diabetes mellitus with hyperglycemia; Z79.02 Long term (current) use of antithrombotics/antiplatelets; Z79.4 Long term (current) use of insulin; Z79.899 Other long term (current) drug therapy; Z68.30 Body mass index [BMI] 30.0-30.9, adult; Z90.89 Acquired absence of other organs; Z98.890 Other specified postprocedural states; Z96.652 Presence of left artificial knee joint
CPT/HCPCS: 36415; 71010; 80053; 81001; 82140; 82150; 82962; 83605; 84484; 85025; 85610; 87040; 93005; 96361; 96374; 96375; 99285; A9270; G0378; J1815; J2405; J7040

== ENCOUNTER 2016-10-24 09:06 | Emergency (ER) | payer MEDICARE ==
[2016-10-24] MEDS ORDERED: Ketorolac 60 MG/2 ML SDV IM ONE (09:50)
--- NOTE | 2016-10-24 09:53 | EDM.PDOC ---
ED HPI GENERAL MEDICAL PROBLEM - General Chief Complaint: Lower Extremity Injury/Pain Stated Complaint: BIG TOE HURTS Time Seen by Provider: 10/24/16 09:34 - History of Present Illness INITIAL COMMENTS - FREE TEXT/NARRATIVE: HISTORY AND PHYSICAL: History of present illness: The patient is a 66-year-old male with multiple medical problems including diabetes coronary artery disease hyperlipidemia and morbid obesity who presents with complaints of pain in his right great toe is been going on and last evening. He says that both toes hurt but it's more the right toe and he had gout many years ago but has had no recurrences. He is very vague about his history and when answering questions seems to be very tangential but when focused this is the only reason why he is here. He denies any proximal calf pain or swelling and has no proximal hip pain or knee pain. He says that he injured it several weeks ago but did not seek treatment at that time. He has no numbness or tingling to his feet and the toes are not cold. He ambulance with a cane normally and that is not new or different. He has no proximal hip pain abdominal pain chest pain shortness of breath fever chills nausea or vomiting. He has not taken anything for the pain. He says that he intermittently will get leg cramps more on the right side but that is been ongoing for months. He says he has a provider at [facility] for follow-up Review of systems: As per history of present illness and below otherwise all systems reviewed and negative. Past medical history: As per history of present illness and as reviewed below otherwise noncontributory. Surgical history: As per history of present illness and as reviewed below otherwise noncontributory. Social history: No reported history of drug or alcohol abuse. Family history: As per history of present illness and as reviewed below otherwise noncontributory. Physical exam: Gen.: Well-developed overweight male who is nontoxic and speaking clearly and easily in the ED vital signs of an reviewed by me HEENT: Atraumatic, normocephalic, pupils reactive, negative for conjunctival pallor or scleral icterus, mucous membranes moist, throat clear, neck supple, nontender, trachea midline. Lungs: Clear to auscultation, breath sounds equal bilaterally, chest nontender. Heart: S1S2, regular, negative for clicks, rubs, or JVD. Abdomen: Soft, nondistended, nontender. Negative for masses or hepatosplenomegaly. Negative for costovertebral tenderness. Pelvis: Stable nontender. Genitourinary: Deferred. Rectal: Deferred. Extremities: Atraumatic, negative for cords or calf pain. Neurovascular unremarkable. There is mild tenderness at palpation of the base of the right great toe and is some minimal soft tissue swelling but no warmth erythema or gross lesions or deformities. The remainder of the bony toes and foot are intact without tenderness or deformities. The temperature of the toes is normal in Refill is also normal. By Doppler the patient has a strong biphasic pulse at the dorsalis pedis. There is no proximal calf tenderness or pain no other bony deformities appreciated and patient has full range of motion of all extremities Neuro: Awake, alert, oriented. Cranial nerves II through XII unremarkable. Cerebellum unremarkable. Motor and sensory unremarkable throughout. Exam nonfocal. Diagnostics: CBC CMP uric acid sedimentation rate CRP x-ray of the right foot Therapeutics: Toradol, post op shoe Testing results were discussed with the patient including the findings of the subacute fracture of the toe which coincides with his history of a trauma several weeks ago and the uric acid. The patient states he is very concerned about medications he may be given here so I will refrain from giving him steroids but will give him some tramadol. The patient did aspirate Blair for his toe pain and also as an aside aspect give him something for his chronic sinusitis issues. 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 Impression: Right great toe subacute fracture/gouty arthritis Definitive disposition and diagnosis as appropriate pending reevaluation and review of above. both big toes Pain Score (Numeric/FACES): 8 - Related Data Allergies Allergy/AdvReac Type Severity Reaction Status Date / Time morphine Allergy Shortness Verified 10/24/16 09:15 of Breath smoke Allergy Shortness Uncoded 10/24/16 09:15 of Breath Home Meds: Home Meds Esomeprazole [NexIUM] 40 mg PO ACBREAKFAST 05/30/13 [History] Quinapril [Accupril] 40 mg PO BID 05/30/13 [History] Metoprolol Succinate [Toprol XL] 100 mg PO DAILY 06/23/13 [History] metFORMIN [Glucophage XR] 750 mg PO BIDMEALS 10/11/13 [History] ClonazePAM [KlonoPIN] 0.5 mg PO BID PRN 09/14/16 [History] Fluticasone Propionate [Flonase] 2 sprays NASBOTH DAILY PRN 09/14/16 [History] Furosemide [Lasix] 40 mg PO DAILY PRN 09/14/16 [History] HYDROmorphone HCl [Dilaudid] 8 mg PO Q4H PRN 09/14/16 [History] Insulin Glarg,Human.Rec.Analog [LantUS Solostar] 55 units SUBCUT BEDTIME [History] Insulin Lispro [Humalog Kwikpen U-200] 20 units SUBCUT TIDAC 09/14/16 [History] Clopidogrel [Plavix] 75 mg PO DAILY #0 09/15/16 [Rx] Hydrochlorothiazide 25 mg PO DAILY #30 tablet 09/15/16 [Rx] Nitroglycerin [Nitrostat] 0.4 mg SL ASDIRECTED PRN #1 bottle 09/15/16 [Rx] Past Medical History - Past Health History Medical/Surgical History: Denies Medical/Surgical History HEENT History: Reports: Sinusitis Cardiovascular History: Reports: Blood Clots/VTE/DVT, CAD, Hypertension, NM, Stents Other Cardiovascular History: 8 stents done Respiratory History: Reports: Sleep Apnea Other Genitourinary History: complains of frequent urination at night time Musculoskeletal History: Reports: Amputation, Back Pain, Chronic, Osteoarthritis Endocrine/Metabolic History: Reports: Diabetes, Type II, Obesity/BMI 30+ - Infectious Disease History Infectious 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 Pox - Past Surgical History HEENT Surgical History: Reports: Naso-Sinus Surgery, Tonsillectomy, Other (See Below) Endocrine Surgical History: Reports: None Musculoskeletal Surgical History: Reports: Knee Replacement Other Musculoskeletal Surgeries/Procedures:: left knee replacement Social & Family History - Family History Family Medical History: Noncontributory - Tobacco Use Smoking Status *Q: Never Smoker Second Hand Smoke Exposure: No - Caffeine Use Caffeine Use: Reports: Coffee - Alcohol Use Days Per Week of Alcohol Use: 0 - Recreational Drug Use Recreational Drug Use: No - Living Situation & Occupation Living situation: Reports: Occupation: Disabled Review of Systems - Review of Systems Review Of Systems: ROS reveals no pertinent complaints other than HPI. ED EXAM, GENERAL - Physical Exam Exam: See Below (See dictation) Course - Vital Signs Last Recorded V/S: Last Vital Signs Temp 36.1 C 10/24/16 09:06 Pulse 64 10/24/16 09:06 Resp 20 10/24/16 09:06 BP 183/93 H 10/24/16 09:06 Pulse Ox 94 L 10/24/16 09:06 - Orders/Labs/Meds Orders: Active Orders 24 hr Category Date Time Status Foot 2V Rt [CR] Stat Exams 10/24/16 09:49 Taken DME for Discharge [COMM] Stat Oth 10/24/16 11:09 Ordered Labs: Laboratory Tests 10/24/16 10/24/16 Range/Units 10:10 10:10 WBC 7.14 (4.0-11.0) K/uL RBC 4.99 (4.50-5.90) M/uL Hgb 15.0 (13.0-17.0) g/dL Hct 44.2 (38.0-50.0) % MCV 88.6 (80.0-98.0) fL MCH 30.1 (27.0-32.0) pg MCHC 33.9 (31.0-37.0) g/dL RDW Std Deviation 42.4 (28.0-62.0) fl RDW Coeff of Edita 13 (11.0-15.0) % Plt Count 100 L (150-400) K/uL MPV 11.10 (7.40-12.00) fL Neut % (Auto) 58.5 (48.0-80.0) % Lymph % (Auto) 28.3 (16.0-40.0) % Winn % (Auto) 8.4 (0.0-15.0) % Eos % (Auto) 4.5 (0.0-7.0) % Baso % (Auto) 0.3 (0.0-1.5) % Neut # (Auto) 4.2 (1.4-5.7) K/uL Lymph # (Auto) 2.0 (0.6-2.4) K/uL Winn # (Auto) 0.6 (0.0-0.8) K/uL Eos # (Auto) 0.3 (0.0-0.7) K/uL Baso # (Auto) 0.0 (0.0-0.1) K/uL Nucleated RBC % 0.0 /100WBC Nucleated RBCs # 0 K/uL ESR 7 (0-19) mm/hr Sodium 137 (136-146) mmol/L Potassium 4.6 (3.5-5.1) mmol/L Chloride 103 (98-110) mmol/L Carbon Dioxide 26 (21-31) mmol/L BUN 14 (6.0-23.0) mg/dL Creatinine 1.2 (0.6-1.5) mg/dL Est Cr Clr Drug Dosing 63.62 mL/min Estimated GFR (MDRD) > 60.0 ml/min Glucose 213 H (60-110) mg/dL Uric Acid 7.9 H (2.1-7.4) mg/dL Calcium 8.8 (8.8-10.8) mg/dL Total Bilirubin 0.5 (0.1-1.5) mg/dL AST 18 (5-40) IU/L ALT 23 (8-54) IU/L Alkaline Phosphatase 75 (40-150) C-Reactive Protein 0.66 H (0.0-0.5) mg/dL Total Protein 6.6 (6.0-8.0) g/dL Albumin 3.6 (3.4-4.8) g/dL Globulin 3.0 (2.0-3.5) g/dL Albumin/Globulin Ratio 1.2 L (1.3-2.8) Meds: Medications Discontinued Medications Generic Name Dose Route Start Last Admin Trade Name Freq PRN Reason Stop Dose Admin Ketorolac Tromethamine 60 mg 10/24/16 09:50 10/24/16 09:57 Toradol IM 10/24/16 09:51 60 mg ONETIME ONE Administration Departure - Departure Time of Disposition: 11:12 Disposition: Home, Self-Care 01 Condition: Good Clinical Impression: Gout Qualifiers: Gout site: toe Gout etiology: unspecified cause Chronicity: unspecified Laterality: right Qualified Code(s): M10.9 - Gout, unspecified Fracture of great toe Qualifiers: Encounter type: initial encounter Fracture type: closed Phalanx: proximal Fracture alignment: nondisplaced Laterality: right Qualified Code(s): S92.414A - Nondisplaced fracture of proximal phalanx of right great toe, initial encounter for closed fracture - Discharge Information Referrals: PCP,None [Primary Care Provider] - Forms: ED Department Discharge Additional Instructions: The following information is given to patients seen in the emergency department who are being discharged to home. This information is to outline your options for follow-up care. We provide all patients seen in our emergency department with a follow-up referral. The need for follow-up, as well as the timing and circumstances, are variable depending upon the specifics of your emergency department visit. If you don't have a primary care physician on staff, we will provide you with a referral. We always advise you to contact your personal physician following an emergency department visit to inform them of the circumstance of the visit and for follow-up with them and/or the need for any referrals to a consulting specialist. The emergency department will also refer you to a specialist when appropriate. This referral assures that you have the opportunity for followup care with a specialist. All of these measure are taken in an effort to provide you with optimal care, which includes your followup. Under all circumstances we always encourage you to contact your private physician who remains a resource for coordinating your care. When calling for followup care, please make the office aware that this follow-up is from your recent emergency room visit. If for any reason you are refused follow-up, please contact the [facility] emergency department at and ask to speak to the emergency department charge nurse. [address] [place] [address] [facility]- Internal Medicine and Family [address] [id number] Please use the postop shoe you have been given for comfort and take the tramadol as needed and prescribed. Youmay also use [id number] medications for pain. Elevate the foot and use ice for symptomatic care. Please call and follow-up with your provider at [facility] or one of our providers in the clinics for follow-up and further evaluation and care. Please also see your provider at [facility] for other complaints and issues that you have expressed here. - My Orders Last 24 Hours: My Active Orders 10/24/16 09:49 Foot 2V Rt [CR] Stat 10/24/16 11:09 DME for Discharge [COMM] Stat - Assessment/Plan Last 24 Hours: My Active Orders 10/24/16 09:49 Foot 2V Rt [CR] Stat 10/24/16 11:09 DME for Discharge [COMM] Stat
[2016-10-24 10:32] LABS: CHLORIDE,CL 103 mmol/L (98-110); SODIUM,NA 137 mmol/L (136-146)
[2016-10-24 11:37] VITALS: BP 170/80
--- NOTE | 2016-10-25 18:27 | CR ---
EXAM DATE: 10/24/16 PATIENT'S AGE: 66 Patient: MARIANA HARRIS Facility: [place], [place] Site . Site : 1950 Study: XRay Extremity Right [id number]/[id number] 10:06:18 AM Ordering Physician: Shauna Rodriguez Final Report: Indication: Pain. Technique: Two views right foot. Findings: Subtle cortical step-off central articular fossa the head proximal phalanx great toe likely acute to subacute fracture. Some patchy high attenuation over the central joint space in the posttraumatic or inflammatory mineralization. Longitudinal somewhat indistinct line of lucency through the central trabecula of the proximal phalanx is nonspecific but could represent extension of fracture. Small likely posttraumatic or degenerative chronic appearing periarticular ossicles medial margin slightly narrowed 1st metatarsophalangeal joint. Bifid medial sesamoid. No other significant finding. Dictated by Moy Huizar MD @ Oct 24 2016 10:11AM (Electronic Signature) Report Signed by Proxy. NADJA
== END 2016-10-24 11:25 | disposition home or self-care (01) ==
LOC: MW.ED 09:06
DX: S92.414A Nondisplaced fracture of proximal phalanx of right great toe, initial encounter for closed fracture (principal); M10.9 Gout, unspecified; E11.9 Type 2 diabetes mellitus without complications; E66.8 Other obesity; M19.90 Unspecified osteoarthritis, unspecified site; I25.10 Atherosclerotic heart disease of native coronary artery without angina pectoris; Z88.5 Allergy status to narcotic agent; Z79.84 Long term (current) use of oral hypoglycemic drugs; Z79.899 Other long term (current) drug therapy; Z79.4 Long term (current) use of insulin; Z98.890 Other specified postprocedural states; Z96.652 Presence of left artificial knee joint; X58.XXXA Exposure to other specified factors, initial encounter
CPT/HCPCS: 36415; 73620; 80053; 84550; 85025; 85652; 86140; 96372; 99283; J1885

== ENCOUNTER 2018-05-09 23:57 | Emergency (ER) | payer MEDICARE ==
[2018-05-10 00:17] VITALS: BP 180/85
--- NOTE | 2018-05-10 00:19 | EDM.PDOC ---
ED HPI GENERAL MEDICAL PROBLEM - General Chief Complaint: Skin Complaint Stated Complaint: RASH Time Seen by Provider: 05/10/18 00:16 - History of Present Illness INITIAL COMMENTS - FREE TEXT/NARRATIVE: HISTORY AND PHYSICAL: History of present illness: Patient is a 59-year-old male presents with request for medication refill he denies any other complaints Review of systems: As per history of present illness and below otherwise all systems reviewed and negative. Past medical history: As per history of present illness and as reviewed below otherwise noncontributory. Surgical history: As per history of present illness and as reviewed below otherwise noncontributory. Social history: No reported history of drug or alcohol abuse. Family history: As per history of present illness and as reviewed below otherwise noncontributory. Physical exam: HEENT: Atraumatic, normocephalic, pupils reactive, negative for conjunctival pallor or scleral icterus, mucous membranes moist, throat clear, neck supple, nontender, trachea midline. Lungs: Clear to auscultation, breath sounds equal bilaterally, chest nontender. Heart: S1S2, regular, negative for clicks, rubs, or JVD. Abdomen: Soft, nondistended, nontender. Negative for masses or hepatosplenomegaly. Negative for costovertebral tenderness. Pelvis: Stable nontender. Genitourinary: Deferred. Rectal: Deferred. Extremities: Atraumatic, . Neuro: Awake, alert, oriented. Diagnostics: None Therapeutics: None Impression: #1 medication refill Definitive disposition and diagnosis as appropriate pending reevaluation and review of above. - Related Data Allergies Allergy/AdvReac Type Severity Reaction Status Date / Time morphine Allergy Shortness Verified 05/10/18 00:08 of Breath smoke Allergy Shortness Uncoded 05/10/18 00:08 of Breath Home Meds: Home Meds Esomeprazole [NexIUM] 40 mg PO ACBREAKFAST 05/30/13 [History] Quinapril [Accupril] 40 mg PO BID 05/30/13 [History] Metoprolol Succinate [Toprol XL] 100 mg PO DAILY 06/23/13 [History] metFORMIN [Glucophage XR] 750 mg PO BIDMEALS 10/11/13 [History] ClonazePAM [KlonoPIN] 0.5 mg PO BID PRN 09/14/16 [History] Fluticasone Propionate [Flonase] 2 sprays NASBOTH DAILY PRN 09/14/16 [History] Furosemide [Lasix] 40 mg PO DAILY PRN 09/14/16 [History] HYDROmorphone HCl [Dilaudid] 8 mg PO Q4H PRN 09/14/16 [History] Insulin Glarg,Human.Rec.Analog [LantUS Solostar] 55 units SUBCUT BEDTIME [History] Insulin Lispro [Humalog Kwikpen U-200] 20 units SUBCUT TIDAC 09/14/16 [History] Clopidogrel [Plavix] 75 mg PO DAILY #0 09/15/16 [Rx] Hydrochlorothiazide 25 mg PO DAILY #30 tablet 09/15/16 [Rx] Nitroglycerin [Nitrostat] 0.4 mg SL ASDIRECTED PRN #1 bottle 09/15/16 [Rx] Past Medical History - Past Health History Medical/Surgical History: Denies Medical/Surgical History HEENT History: Reports: Sinusitis Cardiovascular History: Reports: Blood Clots/VTE/DVT, CAD, Hypertension, OR, Stents Other Cardiovascular History: 8 stents done Respiratory History: Reports: Sleep Apnea Other Genitourinary History: complains of frequent urination at night time Musculoskeletal History: Reports: Amputation, Back Pain, Chronic, Osteoarthritis Endocrine/Metabolic History: Reports: Diabetes, Type II, Obesity/BMI 30+ - Infectious Disease History Infectious 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 Pox - Past Surgical History HEENT Surgical History: Reports: Naso-Sinus Surgery, Tonsillectomy, Other (See Below) Endocrine Surgical History: Reports: None Musculoskeletal Surgical History: Reports: Knee Replacement Other Musculoskeletal Surgeries/Procedures:: left knee replacement Social & Family History - Family History Family Medical History: Noncontributory - Caffeine Use Caffeine Use: Reports: Coffee - Living Situation & Occupation Living situation: Reports: Occupation: Disabled ED ROS GENERAL - Review of Systems Review Of Systems: ROS reveals no pertinent complaints other than HPI. ED EXAM, SKIN/RASH Exam: See Below (The dictation) Departure - Departure Time of Disposition: 00:18 Disposition: Home, Self-Care 01 Condition: Good Clinical Impression: Medication refill - Discharge Information Referrals: PCP,None [Primary Care Provider] - Additional Instructions: The following information is given to patients seen in the emergency department who are being discharged to home. This information is to outline your options for follow-up care. We provide all patients seen in our emergency department with a follow-up referral. The need for follow-up, as well as the timing and circumstances, are variable depending upon the specifics of your emergency department visit. If you don't have a primary care physician on staff, we will provide you with a referral. We always advise you to contact your personal physician following an emergency department visit to inform them of the circumstance of the visit and for follow-up with them and/or the need for any referrals to a consulting specialist. The emergency department will also refer you to a specialist when appropriate. This referral assures that you have the opportunity for followup care with a specialist. All of these measure are taken in an effort to provide you with optimal care, which includes your followup. Under all circumstances we always encourage you to contact your private physician who remains a resource for coordinating your care. When calling for followup care, please make the office aware that this follow-up is from your recent emergency room visit. If for any reason you are refused follow-up, please contact the [facility] emergency department at and asked to speak to the emergency department charge nurse. Medications prescribed follow-up private medical doctor as needed as discussed return as needed as discussed
== END 2018-05-10 00:37 | disposition home or self-care (01) ==
LOC: MW.ED 23:57
DX: Z76.0 Encounter for issue of repeat prescription (principal); I25.2 Old myocardial infarction; Z88.5 Allergy status to narcotic agent; Z91.048 Other nonmedicinal substance allergy status; Z79.899 Other long term (current) drug therapy
CPT/HCPCS: 99281

== ENCOUNTER 2018-08-10 22:41 | Emergency (ER) | payer MEDICARE ==
[2018-08-10 22:54] VITALS: BP 202/94
--- NOTE | 2018-08-10 22:55 | EDM.PDOC ---
ED HPI GENERAL MEDICAL PROBLEM - General Chief Complaint: General Stated Complaint: MED REFILL Time Seen by Provider: 08/10/18 22:49 - History of Present Illness INITIAL COMMENTS - FREE TEXT/NARRATIVE: HISTORY AND PHYSICAL: History of present illness: Patient 68-year-old male with history of chronic back pain presents with a concern of medication refill is out of his narcotic analgesics. No other complaints Review of systems: As per history of present illness and below otherwise all systems reviewed and negative. Past medical history: As per history of present illness and as reviewed below otherwise noncontributory. Surgical history: As per history of present illness and as reviewed below otherwise noncontributory. Social history: No reported history of drug or alcohol abuse. Family history: As per history of present illness and as reviewed below otherwise noncontributory. Physical exam: HEENT: Atraumatic, normocephalic, pupils reactive, negative for conjunctival pallor or scleral icterus, mucous membranes moist, throat clear, neck supple, nontender, trachea midline. Lungs: Clear to auscultation, breath sounds equal bilaterally, chest nontender. Heart: S1S2, regular, negative for clicks, rubs, or JVD. Abdomen: Soft, nondistended, nontender. Negative for masses or hepatosplenomegaly. Negative for costovertebral tenderness. Pelvis: Stable nontender. Genitourinary: Deferred. Rectal: Deferred. Extremities: Atraumatic, negative for cords or calf pain. Neurovascular unremarkable. Neuro: Awake, alert, oriented. Cranial nerves II through XII unremarkable. Cerebellum unremarkable. Motor and sensory unremarkable throughout. Exam nonfocal. Diagnostics: None Therapeutics: None Impression: 1 medical screening exam #2 chronic back pain Definitive disposition and diagnosis as appropriate pending reevaluation and review of above. - Related Data Allergies Allergy/AdvReac Type Severity Reaction Status Date / Time morphine Allergy Shortness Verified 05/10/18 00:08 of Breath smoke Allergy Shortness Uncoded 05/10/18 00:08 of Breath Home Meds: Home Meds Esomeprazole [NexIUM] 40 mg PO ACBREAKFAST 05/30/13 [History] Quinapril [Accupril] 40 mg PO BID 05/30/13 [History] Metoprolol Succinate [Toprol XL] 100 mg PO DAILY 06/23/13 [History] metFORMIN [Glucophage XR] 750 mg PO BIDMEALS 10/11/13 [History] ClonazePAM [KlonoPIN] 0.5 mg PO BID PRN 09/14/16 [History] Fluticasone Propionate [Flonase] 2 sprays NASBOTH DAILY PRN 09/14/16 [History] Furosemide [Lasix] 40 mg PO DAILY PRN 09/14/16 [History] HYDROmorphone HCl [Dilaudid] 8 mg PO Q4H PRN 09/14/16 [History] Insulin Glarg,Human.Rec.Analog [LantUS Solostar] 55 units SUBCUT BEDTIME [History] Insulin Lispro [Humalog Kwikpen U-200] 20 units SUBCUT TIDAC 09/14/16 [History] Clopidogrel [Plavix] 75 mg PO DAILY #0 09/15/16 [Rx] Hydrochlorothiazide 25 mg PO DAILY #30 tablet 09/15/16 [Rx] Nitroglycerin [Nitrostat] 0.4 mg SL ASDIRECTED PRN #1 bottle 09/15/16 [Rx] Past Medical History - Past Health History Medical/Surgical History: Denies Medical/Surgical History HEENT History: Reports: Sinusitis Cardiovascular History: Reports: Blood Clots/VTE/DVT, CAD, Hypertension, NE, Stents Other Cardiovascular History: 8 stents done Respiratory History: Reports: Sleep Apnea Gastrointestinal History: Reports: None Other Genitourinary History: complains of frequent urination at night time Musculoskeletal History: Reports: Amputation, Back Pain, Chronic, Osteoarthritis Endocrine/Metabolic History: Reports: Diabetes, Type II, Obesity/BMI 30+ Hematologic History: Reports: None Immunologic History: Reports: None - Infectious Disease History Infectious 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 Pox - Past Surgical History HEENT Surgical History: Reports: Naso-Sinus Surgery, Tonsillectomy, Other (See Below) Endocrine Surgical History: Reports: None Musculoskeletal Surgical History: Reports: Knee Replacement Other Musculoskeletal Surgeries/Procedures:: left knee replacement Social & Family History - Family History Family Medical History: Noncontributory - Caffeine Use Caffeine Use: Reports: Coffee - Living Situation & Occupation Living situation: Reports: Occupation: Disabled ED ROS GENERAL - Review of Systems Review Of Systems: ROS reveals no pertinent complaints other than HPI. ED EXAM, GENERAL - Physical Exam Exam: See Below (C dictation) Departure - Departure Time of Disposition: 22:54 Disposition: Home, Self-Care 01 Condition: Good Clinical Impression: Encounter for medical screening examination - Discharge Information Referrals: Lincoln Murrell MD [Primary Care Provider] - Additional Instructions: The following information is given to patients seen in the emergency department who are being discharged to home. This information is to outline your options for follow-up care. We provide all patients seen in our emergency department with a follow-up referral. The need for follow-up, as well as the timing and circumstances, are variable depending upon the specifics of your emergency department visit. If you don't have a primary care physician on staff, we will provide you with a referral. We always advise you to contact your personal physician following an emergency department visit to inform them of the circumstance of the visit and for follow-up with them and/or the need for any referrals to a consulting specialist. The emergency department will also refer you to a specialist when appropriate. This referral assures that you have the opportunity for followup care with a specialist. All of these measure are taken in an effort to provide you with optimal care, which includes your followup. Under all circumstances we always encourage you to contact your private physician who remains a resource for coordinating your care. When calling for followup care, please make the office aware that this follow-up is from your recent emergency room visit. If for any reason you are refused follow-up, please contact the [facility] emergency department at and asked to speak to the emergency department charge nurse. Follow-up primary medical doctor as needed as discussed return as needed as discussed
== END 2018-08-10 23:05 | disposition home or self-care (01) ==
LOC: MW.ED 22:41
DX: M54.9 Dorsalgia, unspecified (principal); G89.29 Other chronic pain; I25.10 Atherosclerotic heart disease of native coronary artery without angina pectoris; I25.2 Old myocardial infarction; I10 Essential (primary) hypertension; E11.9 Type 2 diabetes mellitus without complications; Z95.5 Presence of coronary angioplasty implant and graft; Z88.5 Allergy status to narcotic agent; Z79.899 Other long term (current) drug therapy; Z79.4 Long term (current) use of insulin; Z79.01 Long term (current) use of anticoagulants; Z79.82 Long term (current) use of aspirin
CPT/HCPCS: 99281

== ENCOUNTER 2019-04-22 20:31 | Emergency (ER) | payer MEDICARE ==
[2019-04-22] MEDS ORDERED: Diphtheria/Tetanus Toxoids,Adult (Td) 0.5 ML Syringe IM ONE (20:59)
[2019-04-22] MEDS ORDERED: Bacitracin Oint 1 GM U/D Packet TOP ONE (21:22)
--- NOTE | 2019-04-22 21:51 | EDM.PDOC ---
ED HPI GENERAL MEDICAL PROBLEM - General Chief Complaint: Laceration Stated Complaint: LACERATION TO LOWER LEFT LEG Time Seen by Provider: 04/22/19 20:44 Source of Information: Reports: Patient History Limitations: Reports: No Limitations - History of Present Illness INITIAL COMMENTS - FREE TEXT/NARRATIVE: HISTORY AND PHYSICAL: History of present illness: Patient is a 68-year-old male who presents to the ED today with concern of laceration to his left calf that occurred just prior to arrival to the ED. Patient states he was using a glass pitcher when he had dropped it and it cut the back of his left calf. Patient states he is not up-to-date on his tetanus. Patient states he put a dressing over the wound and came to the ED immediately. Patient denies any falls or loss of consciousness. Patient denies any other symptoms or concerns. Patient denies fever, chills, chest pain, shortness of breath, or cough. Denies headache, neck stiff ness, change in vision, syncope, or near syncope. Denies nausea, vomiting, abdominal pain, diarrhea, constipation, or dysuria. Has not noted any blood in urine or stool. Patient has been eating and drinking appropriately. Review of systems: As per history of present illness and below otherwise all systems reviewed and negative. Past medical history: As per history of present illness and as reviewed below otherwise noncontributory. Surgical history: As per history of present illness and as reviewed below otherwise noncontributory. Social history: See social history for further information Family history: As per history of present illness and as reviewed below otherwise noncontributory. Physical exam: General: Patient is alert, oriented, and in no acute distress. Patient sitting comfortably on exam table. HEENT: Atraumatic, normocephalic, pupils equal and reactive bilaterally, negative for conjunctival pallor or scleral icterus, mucous membranes moist, TMs normal bilaterally, throat clear, neck supple, nontender, trachea midline. No drooling or trismus noted. No meningeal signs. No hot potato voice noted. Lungs: Clear to auscultation, breath sounds equal bilaterally, chest nontender. Heart: S1S2, regular rate and rhythm without overt murmur Abdomen: Soft, nondistended, nontender. Negative for masses or hepatosplenomegaly. Negative for costovertebral tenderness. Pelvis: Stable nontender. Genitourinary: Deferred. Rectal: Deferred. Skin: Intact, warm, dry. No lesions or rashes noted. Extremities: There is a superficial abrasion over the left distal posterior calf without bleeding. Otherwise, atraumatic, negative for cords or calf pain. Neurovascular unremarkable. Neuro: Awake, alert, oriented. Cranial nerves II through XII unremarkable. Cerebellum unremarkable. Motor and sensory unremarkable throughout. Exam nonfocal. Notes: Discussed importance for follow-up with a primary care provider. Voices understanding and is agreeable to plan of care. Denies any further questions or concerns at this time. Diagnostics: Tib/fib left, CBC, CMP, UA, EKG, CXR, Trop, lipase Therapeutics: Bacitracin and sterile dressing placed by nursing staff, tetanus Prescription: None Impression: Superficial abrasion, left calf Hypertension Plan: 1. You can alternate ibuprofen and Tylenol as directed for pain and discomfort. 2. Follow-up with the primary care provider as discussed. Return to the ED as needed and as discussed. Definitive disposition and diagnosis as appropriate pending reevaluation and review of above. Left Leg Pain Score (Numeric/FACES): 9 - Related Data Allergies Allergy/AdvReac Type Severity Reaction Status Date / Time morphine Allergy Shortness Verified 04/22/19 20:44 of Breath smoke Allergy Shortness Uncoded 04/22/19 20:44 of Breath Home Meds: Home Meds Esomeprazole [NexIUM] 40 mg PO ACBREAKFAST 05/30/13 [History] Quinapril [Accupril] 40 mg PO BID 05/30/13 [History] Metoprolol Succinate [Toprol XL] 100 mg PO DAILY 06/23/13 [History] metFORMIN [Glucophage XR] 750 mg PO BIDMEALS 10/11/13 [History] ClonazePAM [KlonoPIN] 0.5 mg PO BID PRN 09/14/16 [History] Fluticasone Propionate [Flonase] 2 sprays NASBOTH DAILY PRN 09/14/16 [History] Furosemide [Lasix] 40 mg PO DAILY PRN 09/14/16 [History] HYDROmorphone HCl [Dilaudid] 8 mg PO Q4H PRN 09/14/16 [History] Insulin Glarg,Human.Rec.Analog [LantUS Solostar] 55 units SUBCUT BEDTIME [History] Insulin Lispro [Humalog Kwikpen U-200] 20 units SUBCUT TIDAC 09/14/16 [History] Clopidogrel [Plavix] 75 mg PO DAILY #0 09/15/16 [Rx] Hydrochlorothiazide 25 mg PO DAILY #30 tablet 09/15/16 [Rx] Nitroglycerin [Nitrostat] 0.4 mg SL ASDIRECTED PRN #1 bottle 09/15/16 [Rx] Past Medical History - Past Health History Medical/Surgical History: Denies Medical/Surgical History HEENT History: Reports: Sinusitis Cardiovascular History: Reports: Blood Clots/VTE/DVT, CAD, Hypertension, [place], Stents Other Cardiovascular History: 8 stents done Respiratory History: Reports: Sleep Apnea Gastrointestinal History: Reports: None Other Genitourinary History: complains of frequent urination at night time Musculoskeletal History: Reports: Amputation, Back Pain, Chronic, Osteoarthritis Endocrine/Metabolic History: Reports: Diabetes, Type II, Obesity/BMI 30+ Hematologic History: Reports: None Immunologic History: Reports: None - Infectious Disease History Infectious 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 Pox, MRSA - Past Surgical History HEENT Surgical History: Reports: Naso-Sinus Surgery, Tonsillectomy, Other (See Below) Endocrine Surgical History: Reports: None Musculoskeletal Surgical History: Reports: Knee Replacement Other Musculoskeletal Surgeries/Procedures:: left knee replacement Social & Family History - Family History Family Medical History: Noncontributory - Tobacco Use Smoking Status *Q: Never Smoker - Caffeine Use Caffeine Use: Reports: Coffee - Recreational Drug Use Recreational Drug Use: No - Living Situation & Occupation Living situation: Reports: Occupation: Disabled ED ROS GENERAL - Review of Systems Review Of Systems: Comprehensive ROS is negative, except as noted in HPI. ED EXAM, SKIN/RASH Exam: See Below (see dictation) Course - Vital Signs Last Recorded V/S: Last Vital Signs Temp 97.8 F 04/22/19 22:52 Pulse 49 L 04/22/19 22:52 Resp 20 04/22/19 22:52 BP 168/53 H 04/22/19 22:52 Pulse Ox 94 L 04/22/19 22:52 - Orders/Labs/Meds Labs: Laboratory Tests 04/22/19 04/22/19 Range/Units 21:15 21:15 WBC 7.57 (4.0-11.0) K/uL RBC 5.16 (4.50-5.90) M/uL Hgb 14.9 (13.0-17.0) g/dL Hct 45.7 (38.0-50.0) % MCV 88.6 (80.0-98.0) fL MCH 28.9 (27.0-32.0) pg MCHC 32.6 (31.0-37.0) g/dL RDW Std Deviation 43.7 (28.0-62.0) fl RDW Coeff of Edita 14 (11.0-15.0) % Plt Count 201 (150-400) K/uL MPV 9.40 (7.40-12.00) fL Neut % (Auto) 64.9 (48.0-80.0) % Lymph % (Auto) 21.9 (16.0-40.0) % Alexander % (Auto) 8.9 (0.0-15.0) % Eos % (Auto) 4.0 (0.0-7.0) % Baso % (Auto) 0.3 (0.0-1.5) % Neut # (Auto) 4.9 (1.4-5.7) K/uL Lymph # (Auto) 1.7 (0.6-2.4) K/uL Alexander # (Auto) 0.7 (0.0-0.8) K/uL Eos # (Auto) 0.3 (0.0-0.7) K/uL Baso # (Auto) 0.0 (0.0-0.1) K/uL Nucleated RBC % 0.0 /100WBC Nucleated RBCs # 0 K/uL Sodium 139 (136-148) mmol/L Potassium 4.1 (3.5-5.1) mmol/L Chloride 103 (98-107) mmol/L Carbon Dioxide 29.7 (21.0-32.0) mmol/L BUN 17 (7.0-18.0) mg/dL Creatinine 1.1 (0.8-1.3) mg/dL Est Cr Clr Drug Dosing 65.44 mL/min Estimated GFR (MDRD) > 60.0 ml/min Glucose 140 H (74-106) mg/dL Calcium 9.3 (8.5-10.1) mg/dL Total Bilirubin 0.4 (0.2-1.0) mg/dL AST 21 (15-37) IU/L ALT 28 (14-63) IU/L Alkaline Phosphatase 82 (46-116) U/L Troponin I < 0.050 (0.000-0.056) ng/mL Total Protein 7.4 (6.4-8.2) g/dL Albumin 3.4 (3.4-5.0) g/dL Globulin 4.0 (2.6-4.0) g/dL Albumin/Globulin Ratio 0.9 (0.9-1.6) Lipase 72 L (73-393) U/L Meds: Medications Discontinued Medications Generic Name Dose Route Start Last Admin Trade Name Freq PRN Reason Stop Dose Admin Bacitracin 1 dose 04/22/19 21:22 04/22/19 21:27 Bacitracin Oint 1 Gm TOP 04/22/19 21:23 1 dose ONETIME ONE Administration Tetanus/Diphtheria Toxoids 0.5 ml 04/22/19 20:59 04/22/19 21:23 Tenivac IM 04/22/19 21:00 0.5 ml .ONCE ONE Administration Departure - Departure Time of Disposition: 09:55 Disposition: Home, Self-Care 01 Clinical Impression: Superficial abrasion Hypertension Qualifiers: Hypertension type: unspecified Qualified Code(s): I10 - Essential (primary) hypertension - Discharge Information Instructions: Laceration Care, Adult Referrals: Lincoln Murrell MD [Primary Care Provider] - Forms: ED Department Discharge Additional Instructions: The following information is given to patients seen in the emergency department who are being discharged to home. This information is to outline your options for follow-up care. We provide all patients seen in our emergency department with a follow-up referral. The need for follow-up, as well as the timing and circumstances, are variable depending upon the specifics of your emergency department visit. If you don't have a primary care physician on staff, we will provide you with a referral. We always advise you to contact your personal physician following an emergency department visit to inform them of the circumstance of the visit and for follow-up with them and/or the need for any referrals to a consulting specialist. The emergency department will also refer you to a specialist when appropriate. This referral assures that you have the opportunity for follow-up care with a specialist. All of these measure are taken in an effort to provide you with optimal care, which includes your follow-up. Under all circumstances we always encourage you to contact your private physician who remains a resource for coordinating your care. When calling for follow-up care, please make the office aware that this follow-up is from your recent emergency room visit. If for any reason you are refused follow-up, please contact the [facility] Emergency Department at and asked to speak to the emergency department charge nurse. [facility] [address] [place] [id number] [id number] 1. You can alternate ibuprofen and Tylenol as directed for pain and discomfort. 2. Follow-up with the primary care provider as discussed. Return to the ED as needed and as discussed. Sepsis Event Note - Evaluation Sepsis Screening Result: No Definite Risk - Focused Exam Date Exam was Performed: 04/25/19 Time Exam was Performed: 09:55
[2019-04-22 21:54] LABS: BLOOD UREA NITROGEN,BUN 17 mg/dL (7.0-18.0); CARBON DIOXIDE,CO2 29.7 mmol/L (21.0-32.0); CHLORIDE,CL 103 mmol/L (98-107); GLUCOSE RANDOM 140 mg/dL (74-106); LIPASE 72 U/L (73-393); POTASSIUM,K 4.1 mmol/L (3.5-5.1); SODIUM,NA 139 mmol/L (136-148)
--- NOTE | 2019-04-22 22:05 | CR ---
INDICATION: Leg laceration TECHNIQUE: Tibia-fibula radiograph 4 views left COMPARISON: None FINDINGS: Bone: No acute fractures or aggressive bone lesions are identified. Cortical screws are present within the proximal tibia and distal femur. Joint: The visualized knee and ankle joints are unremarkable. No significant joint effusion is seen. Soft tissue: Mild vascular soft tissue calcifications noted. No radiopaque foreign bodies are seen. IMPRESSION: 1. No acute osseous injuries or abnormalities are noted. Dictated by Jorje Fletcher MD @ 04/22/2019 10:03:38 PM Dictated by: Jorje Fletcher MD @ 04/22/2019 22:03:40 (Electronically Signed)
--- NOTE | 2019-04-22 22:07 | CR ---
INDICATION: Hypertension TECHNIQUE: Chest 1 views COMPARISON: Chest x-ray 09/14/2016 FINDINGS: Cardiovascular and mediastinum: Cardiomegaly with mild aortic tortuosity. Lungs and pleural spaces: No pleural effusion or pneumothorax. No focal pulmonary consolidation with some mild vascular distension. Bones and soft tissues: Status post cervicothoracic junction surgery. IMPRESSION: Cardiomegaly with mild vascular distention. Dictated by Pete Morley MD @ Apr 22 2019 10:03PM Signed by Dr. Pete Morley @ Apr 22 2019 10:05PM
[2019-04-22 22:53] VITALS: BP 168/53; PULSE 49
== END 2019-04-22 23:00 | disposition home or self-care (01) ==
LOC: MW.ED 20:31
DX: S80.812A Abrasion, left lower leg, initial encounter (principal); I10 Essential (primary) hypertension; I25.10 Atherosclerotic heart disease of native coronary artery without angina pectoris; I25.2 Old myocardial infarction; E66.9 Obesity, unspecified; Z68.43 Body mass index [BMI] 50.0-59.9, adult; E11.9 Type 2 diabetes mellitus without complications; Z88.5 Allergy status to narcotic agent; Z79.4 Long term (current) use of insulin; Z79.02 Long term (current) use of antithrombotics/antiplatelets; Z86.718 Personal history of other venous thrombosis and embolism; Z79.899 Other long term (current) drug therapy; Z23 Encounter for immunization; W25.XXXA Contact with sharp glass, initial encounter
CPT/HCPCS: 36415; 71045; 71045-26; 73590-26-LT; 73590-LT; 80053; 83690; 84484; 85025; 90471; 90714; 93005; 99283-25

== ENCOUNTER 2020-01-10 10:52 | Inpatient (IN) | payer MEDICARE ==
[2020-01-10] MEDS ORDERED: Sodium Chloride 0.9% 2.5 ML Syringe FLUSH PRN (11:04)
[2020-01-10] MEDS ORDERED: Sodium Chloride 0.9% 10 ML Syringe FLUSH PRN (11:04)
[2020-01-10] MEDS ORDERED: Dexamethasone 10 MG/ML SDV IVPUSH ONE (11:12)
--- NOTE | 2020-01-10 11:32 | EDM.PDOC ---
ED HPI GENERAL MEDICAL PROBLEM - General Chief Complaint: Respiratory Problem Stated Complaint: COVID Time Seen by Provider: 01/10/20 10:54 Source of Information: Reports: Patient History Limitations: Reports: No Limitations - History of Present Illness INITIAL COMMENTS - FREE TEXT/NARRATIVE: HISTORY AND PHYSICAL: History of present illness: Patient is a 69-year-old male who presents to the ED today with concern of increasing shortness of breath and hypoxia. Patient states he was diagnosed with Covid on 01/02/2020 and was instructed by his primary care provider to monitor h is oxygen levels at home with a pulse oximeter. Patient states that he has had shortness of breath the entire week but starting this morning his oxygen levels have been consistently around 84-86 on room air at home. Patient states that if he walks his oxygen is around 80% and when he sits for a short period of time its around 84 to 86%. Patient states that his oxygen has not gotten into the 90% today. Patient states that he was tested for COVID-19 at [facility] and has been isolating at home. Patient states he does have also have generalized body aches. Patient states he has a history of coronary artery disease and has 8 stents placed 4 years ago, T2DM, htn. Patient denies fever, chills, chest pain, or cough. Denies headache, neck stiff ness, change in vision, syncope, or near syncope. Denies nausea, vomiting, abdominal pain, diarrhea, constipation, or dysuria. Has not noted any blood in urine or stool. Patient has been eating and drinking appropriately. Review of systems: As per history of present illness and below otherwise all systems reviewed and negative. Past medical history: As per history of present illness and as reviewed below otherwise noncontributory. Surgical history: As per history of present illness and as reviewed below otherwise noncontributory. Social history: See social history for further information Family history: As per history of present illness and as reviewed below otherwise noncontributory. Physical exam: General: Patient is alert, oriented, and in no acute distress. Patient sitting comfortably on exam table. HEENT: Atraumatic, normocephalic, pupils equal and reactive bilaterally, negative for conjunctival pallor or scleral icterus, mucous membranes moist, TMs normal bilaterally, throat clear, neck supple, nontender, trachea midline. No drooling or trismus noted. No meningeal signs. No hot potato voice noted. Lungs: Patient speaking clearly without breathlessness, no wheezing or stridor, no accessory muscle use or respiratory distress. Auscultation deferred due to current COV-ID 19 outbreak. Heart: Auscultation deferred due to current COV-ID 19 outbreak. Abdomen: Soft, nondistended, nontender. Negative for masses or he patosplenomegaly. Negative for costovertebral tenderness. Pelvis: Stable nontender. Genitourinary: Deferred. Rectal: Deferred. Skin: Intact, warm, dry. No lesions or rashes noted. Extremities: Atraumatic, negative for cords or calf pain. Neurovascular unremarkable. Neuro: Awake, alert, oriented. Cranial nerves II through XII unremarkable. Cerebellum unremarkable. Motor and sensory unremarkable throughout. Exam nonfocal. Notes: 86% on RA. Ambulatory saturation 80% on RA. 1LNC placed and 94%. Patient is breathing comfortably without breathlessness, no wheezing or stridor, or no accessory muscle use. Dr. Caal consulted on patient and will admit to inpatient on telemetry. Voices understanding and is agreeable to plan of care. Denies any further questions or concerns at this time. Diagnostics: EKG, CBC, CMP, UA, chest x-ray, troponin, D-dimer Therapeutics: Saline lock, Decadron, Remdesmivir Impression: COVID-19 infection Hypoxia Plan: Admit to inpatient to Dr. Caal on telemetry Definitive disposition and diagnosis as appropriate pending reevaluation and review of above. general Pain Score (Numeric/FACES): 9 - Related Data Allergies Allergy/AdvReac Type Severity Reaction Status Date / Time morphine Allergy Shortness Verified 01/10/20 10:57 of Breath smoke Allergy Shortness Uncoded 01/10/20 10:57 of Breath Home Meds: Home Meds Esomeprazole [NexIUM] 40 mg PO ACBREAKFAST 05/30/13 [History] Quinapril [Accupril] 40 mg PO BID 05/30/13 [History] Metoprolol Succinate [Toprol XL] 100 mg PO DAILY 06/23/13 [History] metFORMIN [Glucophage XR] 750 mg PO BIDMEALS 10/11/13 [History] ClonazePAM [KlonoPIN] 0.5 mg PO BID PRN 09/14/16 [History] Fluticasone Propionate [Flonase] 2 sprays NASBOTH DAILY PRN 09/14/16 [History] Furosemide [Lasix] 80 mg PO DAILY 09/14/16 [History] HYDROmorphone HCl [Dilaudid] 2 mg PO Q4H PRN 09/14/16 [History] Insulin Glarg,Human.Rec.Analog [LantUS Solostar] 55 units SUBCUT BEDTIME 09/14/16 [History] Insulin Lispro [Humalog Kwikpen U-200] 20 units SUBCUT TIDAC 09/14/16 [History] Clopidogrel [Plavix] 75 mg PO DAILY #0 09/15/16 [Rx] Nitroglycerin [Nitrostat] 0.4 mg SL ASDIRECTED PRN #1 bottle 09/15/16 [Rx] Hydrochlorothiazide 25 mg PO DAILY PRN 01/10/20 [History] Past Medical History - Past Health History Medical/Surgical History: Denies Medical/Surgical History HEENT History: Reports: Sinusitis Cardiovascular History: Reports: Blood Clots/VTE/DVT, CAD, Hypertension, [place], Stents Other Cardiovascular History: 8 stents done Respiratory History: Reports: Sleep Apnea Gastrointestinal History: Reports: None Other Genitourinary History: complains of frequent urination at night time Musculoskeletal History: Reports: Amputation, Back Pain, Chronic, Osteoarthritis Endocrine/Metabolic History: Reports: Diabetes, Type II, Obesity/BMI 30+ Hematologic History: Reports: None Immunologic History: Reports: None - Infectious Disease History Infectious 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 Pox, MRSA - Past Surgical History HEENT Surgical History: Reports: Naso-Sinus Surgery, Tonsillectomy, Other (See Below) Other HEENT Surgeries/Procedures: uvula surgery Cardiovascular Surgical History: Reports: None Other Cardiovascular Surgeries/Procedures: 3 heart surgeries with 8 stents placed Respiratory Surgical History: Reports: None Male Surgical History: Reports: None Endocrine Surgical History: Reports: None Musculoskeletal Surgical History: Reports: Knee Replacement Other Musculoskeletal Surgeries/Procedures:: left knee replacement Social & Family History - Family History Family Medical History: No Pertinent Family History - Tobacco Use Tobacco Use Status *Q: Never Tobacco User - Caffeine Use Caffeine Use: Reports: Coffee - Recreational Drug Use Recreational Drug Use: No - Living Situation & Occupation Living situation: Reports: Occupation: Disabled ED ROS GENERAL - Review of Systems Review Of Systems: Comprehensive ROS is negative, except as noted in HPI. ED EXAM, GENERAL - Physical Exam Exam: See Below (see dictation) Course - Vital Signs Last Recorded V/S: Last Vital Signs Temp 96.6 F L 01/10/20 10:54 Pulse 68 01/10/20 18:55 Resp 18 01/10/20 18:55 BP 149/71 H 01/10/20 17:47 Pulse Ox 90 L 01/10/20 18:55 - Orders/Labs/Meds Orders: Active Orders 24 hr Category Date Time Status Admission Status [Patient Status] [ADT] Stat ADT 01/10/20 13:30 Active Antiembolic Devices [RC] PER UNIT ROUTINE Care 01/10/20 13:34 Active Blood Glucose Check, Bedside [RC] TIDMEALS Care 01/10/20 13:33 Active Cardiac Monitoring [RC] . DIRECTED Care 01/10/20 18:29 Active EKG Documentation Completion [RC] STAT Care 01/10/20 11:05 Active Oxygen Therapy [RC] PRN Care 01/10/20 13:33 Active VTE/DVT Education [RC] PER UNIT ROUTINE Care 01/10/20 13:33 Active Vital Signs [RC] Q4H Care 01/10/20 13:33 Active [employer] Diet [DIET] Diet 01/10/20 Breakfast Active CBC WITH AUTO DIFF [HEME] AM Lab 01/11/20 05:11 Ordered COMPREHENSIVE METABOLIC PN,CMP [CHEM] AM Lab 01/11/20 05:11 Ordered UA RFX KEVIN AND CULT IF INDIC [URIN] Stat Lab 01/10/20 11:04 Ordered Acetaminophen [TylenoL] Med 01/10/20 13:33 Active 650 mg PO Q4H PRN ClonazePAM [KlonoPIN] Med 01/10/20 13:32 Active 0.5 mg PO BID PRN Dextrose 50% in Water Med 01/10/20 13:32 Active 50 ml IV ASDIRECTED PRN Dextrose 50% in Water Med 01/10/20 13:53 Active 50 ml IV ASDIRECTED PRN Enoxaparin [Lovenox] Med 01/10/20 13:45 Active 40 mg SUBCUT Q24H Esomeprazole [NexIUM] Med 01/11/20 07:30 Active 40 mg PO ACBREAKFAST Fluticasone Propionate [Flonase] Med 01/10/20 13:32 Active 0 gm NASBOTH DAILY PRN Glucagon,Human Recombinant [GlucaGen] Med 01/10/20 13:32 Active 1 mg IM ASDIRECTED PRN Glucagon,Human Recombinant [GlucaGen] Med 01/10/20 13:53 Active 1 mg IM ASDIRECTED PRN HYDROmorphone [Dilaudid] Med 01/10/20 13:32 Active 2 mg PO Q4H PRN Insulin Aspart [NovoLOG] Med 01/10/20 17:00 Active See Protocol SUBCUT TIDAC Insulin Glarg,Human.Rec.Analog [LantUS Solostar] Med 01/10/20 21:00 Active 25 units SUBCUT BEDTIME Levofloxacin/Dextrose 5%-Water [Levaquin in D5W 750 MG/ Med 01/10/20 13:45 Active 150 ML] 750 mg Premix Bag 1 bag IV Q24H Metoprolol Succinate [Toprol XL] Med 01/11/20 09:00 Active 100 mg PO DAILY Nitroglycerin [Nitrostat] Med 01/10/20 13:32 Active 0.4 mg SL ASDIRECTED PRN Quinapril [Accupril] Med 01/10/20 21:00 Active 40 mg PO BID Remdesivir (Eua) [Remdesivir (EUA)] 100 mg Med 01/11/20 13:45 Active Sodium Chloride 0.9% [Normal Saline] 100 ml IV Q24H Sodium Chloride 0.9% [Saline Flush] Med 01/10/20 11:04 Active 10 ml FLUSH ASDIRECTED PRN Sodium Chloride 0.9% [Saline Flush] Med 01/10/20 11:04 Active 2.5 ml FLUSH ASDIRECTED PRN dexAMETHasone Med 01/11/20 09:00 Active 6 mg PO DAILY hydroCHLOROthiazide Med 01/10/20 13:32 Active 25 mg PO DAILY PRN Saline Lock Insert [OM.PC] Stat Oth 01/10/20 11:04 Ordered Sequential Compression Device [OM.PC] Per Unit Routine Oth 01/10/20 13:33 Ordered Medication Orders Acetaminophen (Tylenol) 650 mg PO Q4H PRN PRN Reason: Pain (Mild 1-3)/fever Clonazepam (Klonopin) 0.5 mg PO BID PRN PRN Reason: pain/sleep Dexamethasone (Dexamethasone) 6 mg PO DAILY [facility] Dextrose/Water (Dextrose 50% In Water) 50 ml IV ASDIRECTED PRN PRN Reason: Hypoglycemia Dextrose/Water (Dextrose 50% In Water) 50 ml IV ASDIRECTED PRN PRN Reason: Hypoglycemia Enoxaparin Sodium (Lovenox) 40 mg SUBCUT Q24H [facility] Last Admin: 01/10/20 14:20 Dose: 40 mg Documented by: SRINIVAS Fluticasone Propionate (Flonase) 0 gm NASBOTH DAILY PRN PRN Reason: allergies/congestion Glucagon (Glucagen) 1 mg IM ASDIRECTED PRN PRN Reason: Hypoglycemia Glucagon (Glucagen) 1 mg IM ASDIRECTED PRN PRN Reason: Hypoglycemia Hydrochlorothiazide (Hydrochlorothiazide) 25 mg PO DAILY PRN PRN Reason: swelling Hydromorphone HCl (Dilaudid) 2 mg PO Q4H PRN PRN Reason: Pain Remdesivir 100 mg/ Sodium (Chloride) 100 mls @ 100 mls/hr IV Q24H [facility] Stop: 01/14/20 14:44 Levofloxacin/Dextrose 750 mg/ (Premix) 150 mls @ 100 mls/hr IV Q24H [facility] Last Admin: 01/10/20 14:20 Dose: 100 mls/hr Documented by: SRINIVAS Insulin Aspart (Novolog) 0 unit SUBCUT TIDAC [facility]; Protocol Insulin Glargine (Lantus Solostar) 25 units SUBCUT BEDTIME [facility] Metoprolol Succinate (Toprol Xl) 100 mg PO DAILY [facility] Nitroglycerin (Nitrostat) 0.4 mg SL ASDIRECTED PRN PRN Reason: Chest Pain Non-Formulary Medication (Esomeprazole [Nexium]) 40 mg PO ACBREAKFAST [facility] Non-Formulary Medication (Quinapril [Accupril]) 40 mg PO BID [facility] Sodium Chloride (Saline Flush) 2.5 ml FLUSH ASDIRECTED PRN PRN Reason: Keep Vein Open Last Admin: 01/10/20 11:34 Dose: 2.5 ml Documented by: SRINIVAS Sodium Chloride (Saline Flush) 10 ml FLUSH ASDIRECTED PRN PRN Reason: Keep Vein Open Last Admin: 01/10/20 11:34 Dose: 10 ml Documented by: SRINIVAS Labs: Laboratory Tests 01/10/20 01/10/20 01/10/20 Range/Units 10:56 10:56 10:56 WBC 5.55 (4.0-11.0) K/uL RBC 4.77 (4.50-5.90) M/uL Hgb 14.1 (13.0-17.0) g/dL Hct 42.7 (38.0-50.0) % MCV 89.5 (80.0-98.0) fL MCH 29.6 (27.0-32.0) pg MCHC 33.0 (31.0-37.0) g/dL RDW Std Deviation 43.2 (28.0-62.0) fl RDW Coeff of Edita 13 (11.0-15.0) % Plt Count 162 (150-400) K/uL MPV 9.70 (7.40-12.00) fL Neut % (Auto) 58.9 (48.0-80.0) % Lymph % (Auto) 30.6 (16.0-40.0) % Lassen % (Auto) 10.1 (0.0-15.0) % Eos % (Auto) 0.4 (0.0-7.0) % Baso % (Auto) 0.0 (0.0-1.5) % Neut # (Auto) 3.3 (1.4-5.7) K/uL Lymph # (Auto) 1.7 (0.6-2.4) K/uL Lassen # (Auto) 0.6 (0.0-0.8) K/uL Eos # (Auto) 0.0 (0.0-0.7) K/uL Baso # (Auto) 0.0 (0.0-0.1) K/uL Nucleated RBC % 0.0 /100WBC Nucleated RBCs # 0 K/uL D-Dimer, Quantitative 0.71 H (0.0-0.50) mg/L FEU Sodium 133 L (136-148) mmol/L Potassium 3.9 (3.5-5.1) mmol/L Chloride 98 (98-107) mmol/L Carbon Dioxide 26.6 (21.0-32.0) mmol/L BUN 11 (7.0-18.0) mg/dL Creatinine 1.3 (0.8-1.3) mg/dL Est Cr Clr Drug Dosing 54.59 mL/min Estimated GFR (MDRD) 54.6 ml/min Glucose 119 H (74-106) mg/dL Calcium 8.3 L (8.5-10.1) mg/dL Total Bilirubin 0.6 (0.2-1.0) mg/dL AST 56 H (15-37) IU/L ALT 31 (14-63) IU/L Alkaline Phosphatase 72 (46-116) U/L Troponin I < 0.050 (0.000-0.056) ng/mL Total Protein 7.7 (6.4-8.2) g/dL Albumin 2.9 L (3.4-5.0) g/dL Globulin 4.8 H (2.6-4.0) g/dL Albumin/Globulin Ratio 0.6 L (0.9-1.6) Meds: Medications Generic Name Dose Route Start Last Admin Trade Name Freq PRN Reason Stop Dose Admin Acetaminophen 650 mg 01/10/20 13:33 Tylenol PO Q4H PRN Pain (Mild 1-3)/fever Clonazepam 0.5 mg 01/10/20 13:32 Klonopin PO BID PRN pain/sleep Dexamethasone 6 mg 01/11/20 09:00 Dexamethasone PO DAILY [facility] Dextrose/Water 50 ml 01/10/20 13:32 Dextrose 50% In Water IV ASDIRECTED PRN Hypoglycemia Dextrose/Water 50 ml 01/10/20 13:53 Dextrose 50% In Water IV ASDIRECTED PRN Hypoglycemia Enoxaparin Sodium 40 mg 01/10/20 13:45 01/10/20 14:20 Lovenox SUBCUT 40 mg Q24H [facility] Administration Fluticasone Propionate 0 gm 01/10/20 13:32 Flonase NASBOTH DAILY PRN allergies/congestion Glucagon 1 mg 01/10/20 13:32 Glucagen IM ASDIRECTED PRN Hypoglycemia Glucagon 1 mg 01/10/20 13:53 Glucagen IM ASDIRECTED PRN Hypoglycemia Hydrochlorothiazide 25 mg 01/10/20 13:32 Hydrochlorothiazide PO DAILY PRN swelling Hydromorphone HCl 2 mg 01/10/20 13:32 Dilaudid PO Q4H PRN Pain Remdesivir 100 mg/ Sodium 100 mls @ 100 mls/hr 01/11/20 13:45 Chloride IV 01/14/20 14:44 Q24H [facility] Levofloxacin/Dextrose 750 mg/ 150 mls @ 100 mls/hr 01/10/20 13:45 01/10/20 14:20 Premix IV 100 mls/hr Q24H [facility] Administration Insulin Aspart 0 unit 01/10/20 17:00 Novolog SUBCUT TIDAC [facility] Protocol Insulin Glargine 25 units 01/10/20 21:00 Lantus Solostar SUBCUT BEDTIME [facility] Metoprolol Succinate 100 mg 01/11/20 09:00 Toprol Xl PO DAILY [facility] Nitroglycerin 0.4 mg 01/10/20 13:32 Nitrostat SL ASDIRECTED PRN Chest Pain Non-Formulary Medication 40 mg 01/11/20 07:30 Esomeprazole [Nexium] PO ACBREAKFAST [facility] Non-Formulary Medication 40 mg 01/10/20 21:00 Quinapril [Accupril] PO BID [facility] Sodium Chloride 2.5 ml 01/10/20 11:04 01/10/20 11:34 Saline Flush FLUSH 2.5 ml ASDIRECTED PRN Administration Keep Vein Open Sodium Chloride 10 ml 01/10/20 11:04 01/10/20 11:34 Saline Flush FLUSH 10 ml ASDIRECTED PRN Administration Keep Vein Open Discontinued Medications Generic Name Dose Route Start Last Admin Trade Name Freq PRN Reason Stop Dose Admin Dexamethasone 6 mg 01/10/20 11:12 01/10/20 11:34 Decadron IVPUSH 01/10/20 11:13 6 mg ONETIME ONE Administration Remdesivir 200 mg/ Sodium 250 mls @ 250 mls/hr 01/10/20 13:31 01/10/20 15:16 Chloride IV 01/10/20 13:32 250 mls/hr ONETIME ONE Administration Remdesivir 200 mg/ Sodium 250 mls @ 250 mls/hr 01/10/20 13:34 01/10/20 18:23 Chloride IV 01/10/20 13:35 Not Given ONETIME ONE Remdesivir 200 mg/ Sodium 250 mls @ 250 mls/hr 01/10/20 14:40 01/10/20 18:22 Chloride IV 01/10/20 15:39 Not Given ONETIME ONE Insulin Glargine 55 units 01/10/20 21:00 Lantus Solostar SUBCUT BEDTIME [facility] Iopamidol 50 ml 01/10/20 12:51 01/10/20 12:52 Isovue Multipack-370 (76%) IVPUSH 01/10/20 12:52 50 ml ONETIME STA Administration Non-Formulary Medication 20 units 01/10/20 17:00 Insulin Lispro [Humalog Kwikpen U-200] SUBCUT TIDAC [facility] Departure - Departure Time of Disposition: 13:33 Disposition: Admitted As Inpatient 65 Clinical Impression: COVID-19 virus infection, Hypoxia - Discharge Information Sepsis Event Note (ED) - Evaluation Sepsis Screening Result: No Definite Risk - Focused Exam Vital Signs: Vital Signs Temp Pulse Resp BP Pulse Ox 01/10/20 17:47 72 149/71 H 92 L 01/10/20 17:30 72 147/72 H 91 L 01/10/20 17:17 74 152/79 H 92 L 01/10/20 17:02 73 137/72 91 L 01/10/20 16:50 74 152/73 H 91 L 01/10/20 14:10 83 95 01/10/20 13:10 76 90 L 01/10/20 10:54 96.6 F L 90 16 142/68 H 86 L - My Orders Last 24 Hours: My Active Orders 01/10/20 11:04 UA RFX KEVIN AND CULT IF INDIC [URIN] Stat Sodium Chloride 0.9% [Saline Flush] 10 ml FLUSH ASDIRECTED PRN Sodium Chloride 0.9% [Saline Flush] 2.5 ml FLUSH ASDIRECTED PRN Saline Lock Insert [OM.PC] Stat 01/10/20 11:05 EKG Documentation Completion [RC] STAT 01/10/20 13:30 Admission Status [Patient Status] [ADT] Stat 01/10/20 18:29 Cardiac Monitoring [RC] . DIRECTED - Assessment/Plan Last 24 Hours: My Active Orders 01/10/20 11:04 UA RFX KEVIN AND CULT IF INDIC [URIN] Stat Sodium Chloride 0.9% [Saline Flush] 10 ml FLUSH ASDIRECTED PRN Sodium Chloride 0.9% [Saline Flush] 2.5 ml FLUSH ASDIRECTED PRN Saline Lock Insert [OM.PC] Stat 01/10/20 11:05 EKG Documentation Completion [RC] STAT 01/10/20 13:30 Admission Status [Patient Status] [ADT] Stat 01/10/20 18:29 Cardiac Monitoring [RC] . DIRECTED
[2020-01-10 11:35] LABS: BLOOD UREA NITROGEN,BUN 11 mg/dL (7.0-18.0); CARBON DIOXIDE,CO2 26.6 mmol/L (21.0-32.0); CHLORIDE,CL 98 mmol/L (98-107); GLUCOSE RANDOM 119 mg/dL (74-106); POTASSIUM,K 3.9 mmol/L (3.5-5.1); SODIUM,NA 133 mmol/L (136-148)
--- NOTE | 2020-01-10 11:40 | PCM.SN.2 ---
- Free Text/Narrative Note: EKG Time 1125am Rate 82 No STEPHENIE
--- NOTE | 2020-01-10 12:15 | CR ---
INDICATION: Dyspnea and hypoxia COMPARISON: September 14, 2016 TECHNIQUE: Single-view portable chest radiograph. FINDINGS: TUBES AND LINES: None. HEART AND MEDIASTINUM: Heart is enlarged.. LUNGS AND PLEURAL SPACES: Moderate to severe diffuse multifocal airspace disease. This could be related to edema, bacterial pneumonia or viral pneumonia such as COVID pneumonia.The pleural spaces are unremarkable. OSSEOUS STRUCTURES: Age-appropriate appearance. No acute focal finding. IMPRESSION: Moderate to severe diffuse multifocal airspace disease. This could be related to edema, bacterial pneumonia or viral pneumonia such as COVID pneumonia. Dictated by Bao Mccann MD @ Jan 10 2020 12:13PM Signed by Dr. Bao Mccann @ Jan 10 2020 12:14PM
[2020-01-10] MEDS ORDERED: Iopamidol 755 MG/ML 500 ML Multipack Bottle IVPUSH STA (12:51)
--- NOTE | 2020-01-10 13:09 | CT ---
INDICATION: Pain and dyspnea. COMPARISON: No prior chest CTs TECHNIQUE: : CT examination of the chest was performed with the uneventful intravenous administration of 50 cc of Isovue 370 while thin axial sections were obtained from above the apices of the lungs to the lung bases. Please note that all CT scans at this facility use dose modulation, iterative reconstruction, and/or weight-based dosing when appropriate to reduce radiation dose to as low as reasonably achievable. FINDINGS: : HEART and MEDIASTINUM: The heart is mildly enlarged. There are prominent mediastinal lymph nodes that are likely reactive. There are atherosclerotic vascular calcifications. PULMONARY ARTERIAL CIRCULATION: Limited by motion but no visible intraluminal filling defects to suggest pulmonary emboli. LUNGS: Moderate multifocal ground-glass in a roughly bilateral and symmetric distribution. The appearance is nonspecific but highly suggestive of COVID related lung disease PLEURAL SPACES: There is no pleural effusion, pneumothorax or pleural based mass. VISUALIZED UPPER ABDOMEN: The limited visualized upper abdominal structures appear normal. OSSEOUS STRUCTURES: Age-appropriate appearance. No acute fracture or destructive process. TUBES and LINES: None. IMPRESSION: 1. Limited by motion but no evidence of pulmonary embolus. 2. Mediastinal lymphadenopathy likely reactive. 3. Moderate multifocal ground-glass opacification in a roughly bilateral symmetric distribution. No pleural effusion or pneumothorax. The appearance is nonspecific but highly suggestive of COVID related lung disease. Please note that all CT scans at this facility use dose modulation, iterative reconstruction, and/or weight-based dosing when appropriate to reduce radiation dose to as low as reasonably achievable. Dictated by Bao Mccann MD @ Jan 10 2020 12:56PM Signed by Dr. Bao Mccann @ Jan 10 2020 1:09PM
[2020-01-10] MEDS ORDERED: REMDESIVIR 200 MG in Sodium Chloride 0.9% 250 ML IV ONE ×3 (13:31→14:40)
[2020-01-10] MEDS ORDERED: Hydrochlorothiazide 25 MG Tab PO PRN (13:32)
[2020-01-10] MEDS ORDERED: Glucagon,Human Recombinant 1 MG Vial IM PRN ×2 (13:32→13:53)
[2020-01-10] MEDS ORDERED: Fluticasone Propionate Nasal Spray 16 GM Bottle NASBOTH PRN (13:32)
[2020-01-10] MEDS ORDERED: 50% Dextrose in Water 50 ML Syringe IV PRN ×2 (13:32→13:53)
[2020-01-10] MEDS ORDERED: Nitroglycerin 0.4 MG Tab.SL SL PRN (13:32)
[2020-01-10] MEDS ORDERED: HYDROMORPHONE 8 MG PO PRN (13:32)
[2020-01-10] MEDS ORDERED: Acetaminophen 325 MG Tab PO PRN (13:33)
--- NOTE | 2020-01-10 14:02 | PCM.HP.2 ---
H&P History of Present Illness - General Date of Service: 01/10/20 Admit Problem/Dx: Admission Diagnosis/Problem Admission Diagnosis/Problem Hypoxia - History of Present Illness Initial Comments - Free Text/Narative: 69 yo male with pmh of CAD, DM who was diagnosed with COVID a week ago. He presents with increased shortness of breath, and fatigue. Patient was satting mid 80s on RA in the ED. He is requiring 2 liters to keep sats above 90%. CT chest angio reported no PE but did show bilateral ground glass opacities. general Pain Score (Numeric/FACES): 9 - Related Data Allergies/Adverse Reactions: Allergies Allergy/AdvReac Type Severity Reaction Status Date / Time morphine Allergy Shortness Verified 01/10/20 10:57 of Breath smoke Allergy Shortness Uncoded 01/10/20 10:57 of Breath Home Medications: Home Meds Esomeprazole [NexIUM] 40 mg PO ACBREAKFAST 05/30/13 [History] Quinapril [Accupril] 40 mg PO BID 05/30/13 [History] Metoprolol Succinate [Toprol XL] 100 mg PO DAILY 06/23/13 [History] metFORMIN [Glucophage XR] 750 mg PO BIDMEALS 10/11/13 [History] ClonazePAM [KlonoPIN] 0.5 mg PO BID PRN 09/14/16 [History] Fluticasone Propionate [Flonase] 2 sprays NASBOTH DAILY PRN 09/14/16 [History] Furosemide [Lasix] 80 mg PO DAILY 09/14/16 [History] HYDROmorphone HCl [Dilaudid] 2 mg PO Q4H PRN 09/14/16 [History] Insulin Glarg,Human.Rec.Analog [LantUS Solostar] 55 units SUBCUT BEDTIME 09/14/16 [History] Insulin Lispro [Humalog Kwikpen U-200] 20 units SUBCUT TIDAC 09/14/16 [History] Clopidogrel [Plavix] 75 mg PO DAILY #0 09/15/16 [Rx] Nitroglycerin [Nitrostat] 0.4 mg SL ASDIRECTED PRN #1 bottle 09/15/16 [Rx] Hydrochlorothiazide 25 mg PO DAILY PRN 01/10/20 [History] Past Medical History - Past Health History Medical/Surgical History: Denies Medical/Surgical History HEENT History: Reports: Sinusitis Cardiovascular History: Reports: Blood Clots/VTE/DVT, CAD, Hypertension, [place], Stents Other Cardiovascular History: 8 stents done Respiratory History: Reports: Sleep Apnea Gastrointestinal History: Reports: None Other Genitourinary History: complains of frequent urination at night time Musculoskeletal History: Reports: Amputation, Back Pain, Chronic, Osteoarthritis Endocrine/Metabolic History: Reports: Diabetes, Type II, Obesity/BMI 30+ Hematologic History: Reports: None Immunologic History: Reports: None - Infectious Disease History Infectious 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 Pox, MRSA - Past Surgical History HEENT Surgical History: Reports: Naso-Sinus Surgery, Tonsillectomy, Other (See Below) Other HEENT Surgeries/Procedures: uvula surgery Cardiovascular Surgical History: Reports: None Other Cardiovascular Surgeries/Procedures: 3 heart surgeries with 8 stents placed Respiratory Surgical History: Reports: None Male Surgical History: Reports: None Endocrine Surgical History: Reports: None Musculoskeletal Surgical History: Reports: Knee Replacement Other Musculoskeletal Surgeries/Procedures:: left knee replacement Social & Family History - Family History Family Medical History: No Pertinent Family History - Tobacco Use Tobacco Use Status *Q: Never Tobacco User - Caffeine Use Caffeine Use: Reports: Coffee - Recreational Drug Use Recreational Drug Use: No - Living Situation & Occupation Living situation: Reports: Occupation: Disabled H&P Review of Systems - Review of Systems: Review Of Systems: Comprehensive ROS is negative, except as noted in HPI. Exam - Exam Exam: See Below - Vital Signs Vital Signs: Last Vital Signs Temp 35.9 C L 01/10/20 10:54 Pulse 90 01/10/20 10:54 Resp 16 01/10/20 10:54 BP 142/68 H 01/10/20 10:54 Pulse Ox 95 01/10/20 11:00 Weight: 154.221 kg - Exam General: Alert, Oriented. No: Mild Distress HEENT: Mucosa Moist & [place] Neck: Supple Lungs: Clear to Auscultation, Normal Respiratory Effort Cardiovascular: Regular Rate, Regular Rhythm GI/Abdominal Exam: Normal Bowel Sounds, Soft, Non-Tender Extremities: Non-Tender, No Pedal Edema Skin: Warm, Dry, Intact - Patient Data Lab Results Last 24 hrs: Laboratory Results - last 24 hr 01/10/20 01/10/20 01/10/20 Range/Units 10:56 10:56 10:56 WBC 5.55 (4.0-11.0) K/uL RBC 4.77 (4.50-5.90) M/uL Hgb 14.1 (13.0-17.0) g/dL Hct 42.7 (38.0-50.0) % MCV 89.5 (80.0-98.0) fL MCH 29.6 (27.0-32.0) pg MCHC 33.0 (31.0-37.0) g/dL RDW Std Deviation 43.2 (28.0-62.0) fl RDW Coeff of Edita 13 (11.0-15.0) % Plt Count 162 (150-400) K/uL MPV 9.70 (7.40-12.00) fL Neut % (Auto) 58.9 (48.0-80.0) % Lymph % (Auto) 30.6 (16.0-40.0) % [place] % (Auto) 10.1 (0.0-15.0) % Eos % (Auto) 0.4 (0.0-7.0) % Baso % (Auto) 0.0 (0.0-1.5) % Neut # (Auto) 3.3 (1.4-5.7) K/uL Lymph # (Auto) 1.7 (0.6-2.4) K/uL Holmes # (Auto) 0.6 (0.0-0.8) K/uL Eos # (Auto) 0.0 (0.0-0.7) K/uL Baso # (Auto) 0.0 (0.0-0.1) K/uL Nucleated RBC % 0.0 /100WBC Nucleated RBCs # 0 K/uL D-Dimer, Quantitative 0.71 H (0.0-0.50) mg/L FEU Sodium 133 L (136-148) mmol/L Potassium 3.9 (3.5-5.1) mmol/L Chloride 98 (98-107) mmol/L Carbon Dioxide 26.6 (21.0-32.0) mmol/L BUN 11 (7.0-18.0) mg/dL Creatinine 1.3 (0.8-1.3) mg/dL Est Cr Clr Drug Dosing 54.59 mL/min Estimated GFR (MDRD) 54.6 ml/min Glucose 119 H (74-106) mg/dL Calcium 8.3 L (8.5-10.1) mg/dL Total Bilirubin 0.6 (0.2-1.0) mg/dL AST 56 H (15-37) IU/L ALT 31 (14-63) IU/L Alkaline Phosphatase 72 (46-116) U/L Troponin I < 0.050 (0.000-0.056) ng/mL Total Protein 7.7 (6.4-8.2) g/dL Albumin 2.9 L (3.4-5.0) g/dL Globulin 4.8 H (2.6-4.0) g/dL Albumin/Globulin Ratio 0.6 L (0.9-1.6) Result Diagrams: 01/10/20 10:56 01/10/20 10:56 Sepsis Event Note - Evaluation Sepsis Screening Result: No Definite Risk - Focused Exam Vital Signs: Vital Signs Temp Pulse Resp BP Pulse Ox 01/10/20 11:00 95 01/10/20 10:54 35.9 C L 90 16 142/68 H 86 L Problem List Initiated/Reviewed/Updated: Yes Orders Last 24hrs: Active Orders 24 hr Category Date Time Status Admission Status [Patient Status] [ADT] Stat ADT 01/10/20 13:30 Active Antiembolic Devices [RC] PER UNIT ROUTINE Care 01/10/20 13:34 Ordered Blood Glucose Check, Bedside [RC] TIDMEALS Care 01/10/20 13:33 Ordered Cardiac Monitoring [RC] . DIRECTED Care 01/10/20 11:04 Active EKG Documentation Completion [RC] STAT Care 01/10/20 11:05 Active Oxygen Therapy [RC] PRN Care 01/10/20 13:33 Ordered VTE/DVT Education [RC] PER UNIT ROUTINE Care 01/10/20 13:33 Ordered Vital Signs [RC] Q4H Care 01/10/20 13:33 Ordered [place] [employer] Diet [DIET] Diet 01/10/20 Breakfast Ordered CBC WITH AUTO DIFF [HEME] AM Lab 01/11/20 05:11 Ordered COMPREHENSIVE METABOLIC PN,CMP [CHEM] AM Lab 01/11/20 05:11 Ordered UA RFX KEVIN AND CULT IF INDIC [URIN] Stat Lab 01/10/20 11:04 Ordered Acetaminophen [TylenoL] Med 01/10/20 13:33 Ordered 650 mg PO Q4H PRN ClonazePAM [KlonoPIN] Med 01/10/20 13:32 Ordered 0.5 mg PO BID PRN Dextrose 50% in Water Med 01/10/20 13:32 Ordered 50 ml IV ASDIRECTED PRN Dextrose 50% in Water Med 01/10/20 13:53 Ordered 50 ml IV ASDIRECTED PRN Enoxaparin [Lovenox] Med 01/10/20 13:45 Ordered 40 mg SUBCUT Q24H Esomeprazole [NexIUM] Med 01/11/20 07:30 Ordered 40 mg PO ACBREAKFAST Fluticasone Propionate [Flonase] Med 01/10/20 13:32 Ordered 2 sprays NASBOTH DAILY PRN Glucagon,Human Recombinant [GlucaGen] Med 01/10/20 13:32 Ordered 1 mg IM ASDIRECTED PRN Glucagon,Human Recombinant [GlucaGen] Med 01/10/20 13:53 Ordered 1 mg IM ASDIRECTED PRN HYDROmorphone [Dilaudid] Med 01/10/20 13:32 Ordered 2 mg PO Q4H PRN Insulin Aspart [NovoLOG] Med 01/10/20 17:00 Ordered See Protocol SUBCUT TIDAC Insulin Glarg,Human.Rec.Analog [LantUS Solostar] Med 01/10/20 21:00 Ordered 25 units SUBCUT BEDTIME Levofloxacin/Dextrose 5%-Water [Levaquin in D5W 750 MG/ Med 01/10/20 13:45 Ordered 150 ML] 750 mg Premix Bag 1 bag IV Q24H Metoprolol Succinate [Toprol XL] Med 01/11/20 09:00 Ordered 100 mg PO DAILY Nitroglycerin [Nitrostat] Med 01/10/20 13:32 Ordered 0.4 mg SL ASDIRECTED PRN Quinapril [Accupril] Med 01/10/20 21:00 Ordered 40 mg PO BID Remdesivir (Eua) [Remdesivir (EUA)] 100 mg Med 01/11/20 13:45 Ordered Sodium Chloride 0.9% [Normal Saline] 100 ml IV Q24H Sodium Chloride 0.9% [Saline Flush] Med 01/10/20 11:04 Active 10 ml FLUSH ASDIRECTED PRN Sodium Chloride 0.9% [Saline Flush] Med 01/10/20 11:04 Active 2.5 ml FLUSH ASDIRECTED PRN dexAMETHasone Med 01/11/20 09:00 Ordered 6 mg PO DAILY hydroCHLOROthiazide Med 01/10/20 13:32 Ordered 25 mg PO DAILY PRN Saline Lock Insert [OM.PC] Stat Oth 01/10/20 11:04 Ordered Sequential Compression Device [OM.PC] Per Unit Routine Ot 01/10/20 13:33 Ordered Medication Orders Acetaminophen (Tylenol) 650 mg PO Q4H PRN PRN Reason: Pain (Mild 1-3)/fever Clonazepam (Klonopin) 0.5 mg PO BID PRN PRN Reason: pain/sleep Dexamethasone (Dexamethasone) 6 mg PO DAILY [facility] Dextrose/Water (Dextrose 50% In Water) 50 ml IV ASDIRECTED PRN PRN Reason: Hypoglycemia Dextrose/Water (Dextrose 50% In Water) 50 ml IV ASDIRECTED PRN PRN Reason: Hypoglycemia Enoxaparin Sodium (Lovenox) 40 mg SUBCUT Q24H [facility] Fluticasone Propionate (Flonase) 0 gm NASBOTH DAILY PRN PRN Reason: allergies/congestion Glucagon (Glucagen) 1 mg IM ASDIRECTED PRN PRN Reason: Hypoglycemia Glucagon (Glucagen) 1 mg IM ASDIRECTED PRN PRN Reason: Hypoglycemia Hydrochlorothiazide (Hydrochlorothiazide) 25 mg PO DAILY PRN PRN Reason: swelling Hydromorphone HCl (Dilaudid) 2 mg PO Q4H PRN PRN Reason: Pain Remdesivir 100 mg/ Sodium (Chloride) 100 mls @ 100 mls/hr IV Q24H [facility] Stop: 01/14/20 14:44 Levofloxacin/Dextrose 750 mg/ (Premix) 150 mls @ 100 mls/hr IV Q24H [facility] Insulin Aspart (Novolog) 0 unit SUBCUT TIDAC [facility]; Protocol Insulin Glargine (Lantus Solostar) 25 units SUBCUT BEDTIME [facility] Metoprolol Succinate (Toprol Xl) 100 mg PO DAILY [facility] Nitroglycerin (Nitrostat) 0.4 mg SL ASDIRECTED PRN PRN Reason: Chest Pain Non-Formulary Medication (Esomeprazole [Nexium]) 40 mg PO ACBREAKFAST [facility] Non-Formulary Medication (Quinapril [Accupril]) 40 mg PO BID [facility] Sodium Chloride (Saline Flush) 2.5 ml FLUSH ASDIRECTED PRN PRN Reason: Keep Vein Open Last Admin: 01/10/20 11:34 Dose: 2.5 ml Documented by: SRINIVAS Sodium Chloride (Saline Flush) 10 ml FLUSH ASDIRECTED PRN PRN Reason: Keep Vein Open Last Admin: 01/10/20 11:34 Dose: 10 ml Documented by: SRINIVAS Assessment/Plan Comment:: 69 yo male admitted for COVID COVID: 2 liters NC, dexamethasone, Remdesivir, and lovenox. patient explained the FDA EUA on remdesivir and consented to its use DM: patient has not been eating so will halve home dose of insulin.
[2020-01-10] MEDS: Levofloxacin/Dextrose 5%-Water 750 MG in Premix Bag 1 BAG IV SCH (14:20)
[2020-01-10] MEDS: Enoxaparin 40 MG/0.4 ML Syringe SUBCUT SCH (14:20)
[2020-01-10] MEDS ORDERED: INSULIN LISPRO 20 UNIT SUBCUT SCH (17:00)
[2020-01-10] MEDS: Insulin Aspart 100 Units/ML 3 ML Pen SUBCUT SCH (20:40)
[2020-01-10] MEDS ORDERED: QUINAPRIL 40 MG PO SCH (21:00)
[2020-01-10] MEDS ORDERED: Insulin Glargine,Human Rec. Analog 100 Units/ML 3 ML Pen SUBCUT SCH ×2 (21:00)
[2020-01-11 07:03] LABS: CARBON DIOXIDE,CO2 27.3 mmol/L (21.0-32.0); POTASSIUM,K 4.7 mmol/L (3.5-5.1)
[2020-01-11] MEDS: Insulin Aspart 100 Units/ML 3 ML Pen SUBCUT SCH ×4 (09:25→18:41)
[2020-01-11] MEDS: Pantoprazole 40 MG Tab.CR PO SCH (09:25)
[2020-01-11] MEDS: Metoprolol Succinate 50 MG Tab.ER PO SCH (09:25)
[2020-01-11] MEDS: Dexamethasone 4 MG Tab PO SCH (09:25)
[2020-01-11] MEDS ORDERED: 50% Dextrose in Water 50 ML Syringe IV PRN (12:40)
[2020-01-11] MEDS ORDERED: Glucagon,Human Recombinant 1 MG Vial IM PRN (12:40)
--- NOTE | 2020-01-11 12:44 | PCM.PN ---
- General Info Date of Service: 01/11/20 - Review of Systems Systems Review Comment:: feeling much better today - Patient Data Vitals - Most Recent: Last Vital Signs Temp 36.4 C 01/11/20 09:26 Pulse 78 01/11/20 09:25 Resp 18 01/11/20 09:26 BP 120/63 01/11/20 09:26 Pulse Ox 91 L 01/11/20 09:26 Weight - Most Recent: 154.2 kg I&O - Last 24 Hours: Intake & Output 01/10/20 01/11/20 01/11/20 22:59 06:59 14:59 Intake Total 600 Output Total 0 Balance 600 Lab Results Last 24 Hours: Laboratory Results - last 24 hr 01/10/20 01/10/20 01/11/20 Range/Units 18:39 20:27 05:50 WBC 4.61 (4.0-11.0) K/uL RBC 4.60 (4.50-5.90) M/uL Hgb 13.5 (13.0-17.0) g/dL Hct 41.1 (38.0-50.0) % MCV 89.3 (80.0-98.0) fL MCH 29.3 (27.0-32.0) pg MCHC 32.8 (31.0-37.0) g/dL RDW Std Deviation 43.0 (28.0-62.0) fl RDW Coeff of Edita 13 (11.0-15.0) % Plt Count 177 (150-400) K/uL MPV 9.90 (7.40-12.00) fL Neut % (Auto) 67.4 (48.0-80.0) % Lymph % (Auto) 21.3 (16.0-40.0) % [place] % (Auto) 11.1 (0.0-15.0) % Eos % (Auto) 0.0 (0.0-7.0) % Baso % (Auto) 0.2 (0.0-1.5) % Neut # (Auto) 3.1 (1.4-5.7) K/uL Lymph # (Auto) 1.0 (0.6-2.4) K/uL [place] # (Auto) 0.5 (0.0-0.8) K/uL Eos # (Auto) 0.0 (0.0-0.7) K/uL Baso # (Auto) 0.0 (0.0-0.1) K/uL Nucleated RBC % 0.0 /100WBC Nucleated RBCs # 0 K/uL Sodium (136-148) mmol/L Potassium (3.5-5.1) mmol/L Chloride (98-107) mmol/L Carbon Dioxide (21.0-32.0) mmol/L BUN (7.0-18.0) mg/dL Creatinine (0.8-1.3) mg/dL Est Cr Clr Drug Dosing mL/min Estimated GFR (MDRD) ml/min Glucose (74-106) mg/dL POC Glucose 198 H 259 H (60-110) mg/dL Calcium (8.5-10.1) mg/dL Total Bilirubin (0.2-1.0) mg/dL AST (15-37) IU/L ALT (14-63) IU/L Alkaline Phosphatase (46-116) U/L Total Protein (6.4-8.2) g/dL Albumin (3.4-5.0) g/dL Globulin (2.6-4.0) g/dL Albumin/Globulin Ratio (0.9-1.6) Urine Color Urine Appearance Urine pH (5.0-8.0) Ur Specific [place] (1.001-1.035) Urine Protein (NEGATIVE) mg/dL Urine Glucose (UA) (NEGATIVE) mg/dL Urine Ketones (NEGATIVE) mg/dL Urine Occult Blood (NEGATIVE) Urine Nitrite (NEGATIVE) Urine Bilirubin (NEGATIVE) Urine Urobilinogen (<2.0) EU/dL Ur Leukocyte Esterase (NEGATIVE) Urine RBC (0-2/HPF) Urine WBC (0-5/HPF) Ur Epithelial Cells (NONE-FEW) Urine Bacteria (NEGATIVE) Urine Mucus (NONE-MOD) 01/11/20 01/11/20 01/11/20 Range/Units 05:50 06:27 10:50 WBC (4.0-11.0) K/uL RBC (4.50-5.90) M/uL Hgb (13.0-17.0) g/dL Hct (38.0-50.0) % MCV (80.0-98.0) fL MCH (27.0-32.0) pg MCHC (31.0-37.0) g/dL RDW Std Deviation (28.0-62.0) fl RDW Coeff of Edita (11.0-15.0) % Plt Count (150-400) K/uL MPV (7.40-12.00) fL Neut % (Auto) (48.0-80.0) % Lymph % (Auto) (16.0-40.0) % [place] % (Auto) (0.0-15.0) % Eos % (Auto) (0.0-7.0) % Baso % (Auto) (0.0-1.5) % Neut # (Auto) (1.4-5.7) K/uL Lymph # (Auto) (0.6-2.4) K/uL [place] # (Auto) (0.0-0.8) K/uL Eos # (Auto) (0.0-0.7) K/uL Baso # (Auto) (0.0-0.1) K/uL Nucleated RBC % /100WBC Nucleated RBCs # K/uL Sodium 134 L (136-148) mmol/L Potassium 4.7 (3.5-5.1) mmol/L Chloride 100 (98-107) mmol/L Carbon Dioxide 27.3 (21.0-32.0) mmol/L BUN 21 H (7.0-18.0) mg/dL Creatinine 1.3 (0.8-1.3) mg/dL Est Cr Clr Drug Dosing 54.59 mL/min Estimated GFR (MDRD) 54.6 ml/min Glucose 151 H (74-106) mg/dL POC Glucose 172 H (60-110) mg/dL Calcium 8.5 (8.5-10.1) mg/dL Total Bilirubin 0.4 (0.2-1.0) mg/dL AST 48 H (15-37) IU/L ALT 28 (14-63) IU/L Alkaline Phosphatase 70 (46-116) U/L Total Protein 7.4 (6.4-8.2) g/dL Albumin 2.6 L (3.4-5.0) g/dL Globulin 4.8 H (2.6-4.0) g/dL Albumin/Globulin Ratio 0.5 L (0.9-1.6) Urine Color YELLOW Urine Appearance CLEAR Urine pH 5.5 (5.0-8.0) Ur Specific [place] 1.025 (1.001-1.035) Urine Protein TRACE H (NEGATIVE) mg/dL Urine Glucose (UA) NEGATIVE (NEGATIVE) mg/dL Urine Ketones NEGATIVE (NEGATIVE) mg/dL Urine Occult Blood NEGATIVE (NEGATIVE) Urine Nitrite NEGATIVE (NEGATIVE) Urine Bilirubin NEGATIVE (NEGATIVE) Urine Urobilinogen 0.2 (<2.0) EU/dL Ur Leukocyte Esterase NEGATIVE (NEGATIVE) Urine RBC NONE SEEN (0-2/HPF) Urine WBC 0-2 (0-5/HPF) Ur Epithelial Cells RARE (NONE-FEW) Urine Bacteria RARE (NEGATIVE) Urine Mucus RARE (NONE-MOD) Med Orders - Current: Current Medications Acetaminophen (Tylenol) 650 mg PO Q4H PRN PRN Reason: Pain (Mild 1-3)/fever Clonazepam (Klonopin) 0.5 mg PO BID PRN PRN Reason: pain/sleep Dexamethasone (Dexamethasone) 6 mg PO DAILY [facility] Last Admin: 01/11/20 09:25 Dose: 6 mg Documented by: Dextrose/Water (Dextrose 50% In Water) 50 ml IV ASDIRECTED PRN PRN Reason: Hypoglycemia Dextrose/Water (Dextrose 50% In Water) 50 ml IV ASDIRECTED PRN PRN Reason: Hypoglycemia Dextrose/Water (Dextrose 50% In Water) 50 ml IV ASDIRECTED PRN PRN Reason: Hypoglycemia Enoxaparin Sodium (Lovenox) 40 mg SUBCUT Q24H [facility] Last Admin: 01/10/20 14:20 Dose: 40 mg Documented by: Fluticasone Propionate (Flonase) 0 gm NASBOTH DAILY PRN PRN Reason: allergies/congestion Furosemide (Lasix) 80 mg PO DAILY [facility] Glucagon (Glucagen) 1 mg IM ASDIRECTED PRN PRN Reason: Hypoglycemia Glucagon (Glucagen) 1 mg IM ASDIRECTED PRN PRN Reason: Hypoglycemia Glucagon (Glucagen) 1 mg IM ASDIRECTED PRN PRN Reason: Hypoglycemia Hydrochlorothiazide (Hydrochlorothiazide) 25 mg PO DAILY PRN PRN Reason: swelling Hydromorphone HCl (Dilaudid) 2 mg PO Q4H PRN PRN Reason: Pain Levofloxacin/Dextrose 750 mg/ (Premix) 150 mls @ 100 mls/hr IV Q24H [facility] Last Admin: 01/10/20 14:20 Dose: 100 mls/hr Documented by: Remdesivir 100 mg/ Sodium (Chloride) 100 mls @ 100 mls/hr IV Q24H [facility] Stop: 01/14/20 14:44 Insulin Aspart (Novolog) 0 unit SUBCUT TIDAC [facility]; Protocol Last Admin: 01/11/20 09:25 Dose: 3 units Documented by: Insulin Aspart (Novolog) 10 unit SUBCUT TIDAC [facility] Insulin Glargine (Lantus Solostar) 35 units SUBCUT BEDTIME [facility] Metoprolol Succinate (Toprol Xl) 100 mg PO DAILY [facility] Last Admin: 01/11/20 09:25 Dose: 100 mg Documented by: Nitroglycerin (Nitrostat) 0.4 mg SL ASDIRECTED PRN PRN Reason: Chest Pain Pantoprazole Sodium (Protonix) 40 mg PO ACBREAKFAST [facility] Last Admin: 01/11/20 09:25 Dose: 40 mg Documented by: Quinapril HCl (Accupril) 40 mg PO BID [facility] Last Admin: 01/11/20 09:25 Dose: 40 mg Documented by: Sodium Chloride (Saline Flush) 2.5 ml FLUSH ASDIRECTED PRN PRN Reason: Keep Vein Open Last Admin: 01/10/20 11:34 Dose: 2.5 ml Documented by: Sodium Chloride (Saline Flush) 10 ml FLUSH ASDIRECTED PRN PRN Reason: Keep Vein Open Last Admin: 01/10/20 11:34 Dose: 10 ml Documented by: Discontinued Medications Dexamethasone (Decadron) 6 mg IVPUSH ONETIME ONE Stop: 01/10/20 11:13 Last Admin: 01/10/20 11:34 Dose: 6 mg Documented by: Remdesivir 100 mg/ Sodium (Chloride) 100 mls @ 100 mls/hr IV Q24H [facility] Stop: 01/14/20 14:44 Remdesivir 200 mg/ Sodium (Chloride) 250 mls @ 250 mls/hr IV ONETIME ONE Stop: 01/10/20 13:32 Last Admin: 01/10/20 15:16 Dose: 250 mls/hr Documented by: Remdesivir 200 mg/ Sodium (Chloride) 250 mls @ 250 mls/hr IV ONETIME ONE Stop: 01/10/20 13:35 Last Admin: 01/10/20 18:23 Dose: Not Given Documented by: Remdesivir 200 mg/ Sodium (Chloride) 250 mls @ 250 mls/hr IV ONETIME ONE Stop: 01/10/20 15:39 Last Admin: 01/10/20 18:22 Dose: Not Given Documented by: Insulin Glargine (Lantus Solostar) 55 units SUBCUT BEDTIME [facility] Insulin Glargine (Lantus Solostar) 25 units SUBCUT BEDTIME [facility] Last Admin: 01/10/20 20:41 Dose: 25 units Documented by: Iopamidol (Isovue Multipack-370 (76%)) 50 ml IVPUSH ONETIME STA Stop: 01/10/20 12:52 Last Admin: 01/10/20 12:52 Dose: 50 ml Documented by: Non-Formulary Medication (Insulin Lispro [Humalog Kwikpen U-200]) 20 units SUBCUT TIDAC [facility] Non-Formulary Medication (Quinapril [Accupril]) 40 mg PO BID [facility] Last Admin: 01/10/20 20:50 Dose: Not Given Documented by: - Exam General: Alert, Oriented Neck: Supple Lungs: Clear to Auscultation, Normal Respiratory Effort Cardiovascular: Regular Rate, Regular Rhythm GI/Abdominal Exam: Soft, Non-Tender, No Distention Extremities: Non-Tender, No Pedal Edema Skin: Warm, Dry, Intact Neurological: No New Focal Deficit Sepsis Event Note - Evaluation Sepsis Screening Result: No Definite Risk - Focused Exam Vital Signs: Vital Signs Temp Pulse Resp BP BP Pulse Ox 01/11/20 09:26 36.4 C 18 120/63 91 L 01/11/20 09:25 78 120/63 01/11/20 04:00 36.3 C 19 143/66 H 93 L - Problem List Review Problem List Initiated/Reviewed/Updated: Yes - My Orders Last 24 Hours: My Active Orders 01/10/20 13:32 ClonazePAM [KlonoPIN] 0.5 mg PO BID PRN Dextrose 50% in Water 50 ml IV ASDIRECTED PRN Fluticasone Propionate [Flonase] 0 gm NASBOTH DAILY PRN Glucagon,Human Recombinant [GlucaGen] 1 mg IM ASDIRECTED PRN HYDROmorphone [Dilaudid] 2 mg PO Q4H PRN Nitroglycerin [Nitrostat] 0.4 mg SL ASDIRECTED PRN hydroCHLOROthiazide 25 mg PO DAILY PRN 01/10/20 13:33 Blood Glucose Check, Bedside [RC] TIDMEALS Oxygen Therapy [RC] PRN VTE/DVT Education [RC] PER UNIT ROUTINE Vital Signs [RC] Q4H Acetaminophen [TylenoL] 650 mg PO Q4H PRN Sequential Compression Device [OM.PC] Per Unit Routine 01/10/20 13:34 Antiembolic Devices [RC] PER UNIT ROUTINE 01/10/20 13:45 Enoxaparin [Lovenox] 40 mg SUBCUT Q24H Levofloxacin/Dextrose 5%-Water [Levaquin in D5W 750 MG/150 ML] 750 mg Premix Bag 1 bag IV Q24H 01/10/20 13:53 Dextrose 50% in Water 50 ml IV ASDIRECTED PRN Glucagon,Human Recombinant [GlucaGen] 1 mg IM ASDIRECTED PRN 01/10/20 17:00 Insulin Aspart [NovoLOG] See Protocol SUBCUT TIDAC 01/10/20 18:41 Telemetry Monitoring [Cardiac Monitoring] [RC] Q8H 01/11/20 06:38 Quinapril [AccupriL] 40 mg PO BID 01/11/20 07:30 Pantoprazole [ProTONIX] 40 mg PO ACBREAKFAST 01/11/20 09:00 Metoprolol Succinate [Toprol XL] 100 mg PO DAILY dexAMETHasone 6 mg PO DAILY 01/11/20 12:40 Dextrose 50% in Water 50 ml IV ASDIRECTED PRN Glucagon,Human Recombinant [GlucaGen] 1 mg IM ASDIRECTED PRN 01/11/20 13:45 Remdesivir (Eua) [Remdesivir (EUA)] 100 mg Sodium Chloride 0.9% [Normal Saline] 100 ml IV Q24H 01/11/20 17:00 Insulin Aspart [NovoLOG] 10 unit SUBCUT TIDAC 01/11/20 21:00 Insulin Glarg,Human.Rec.Analog [LantUS Solostar] 35 units SUBCUT BEDTIME 01/12/20 09:00 Furosemide [Lasix] 80 mg PO DAILY - Plan Plan:: 69 yo male admitted for COVID COVID: 4 liters NC, continue dexamethasone, Remdesivir, and lovenox. Will restart home does of lasix tomorrow, DM: patient eating more so will increase insulin to novolog 10 TID and 35 lantus at night.
[2020-01-11] MEDS ORDERED: REMDESIVIR 100 MG in Sodium Chloride 0.9% 100 ML IV SCH ×4 (13:45)
[2020-01-11] MEDS: Enoxaparin 40 MG/0.4 ML Syringe SUBCUT SCH (13:56)
[2020-01-11] MEDS: Levofloxacin/Dextrose 5%-Water 750 MG in Premix Bag 1 BAG IV SCH (13:57)
[2020-01-11] MEDS: REMDESIVIR 100 MG in Sodium Chloride 0.9% 100 ML IV SCH (16:36)
[2020-01-11] MEDS ORDERED: Insulin Glargine,Human Rec. Analog 100 Units/ML 3 ML Pen SUBCUT SCH (21:00)
[2020-01-12] MEDS: Benzonatate 100 MG Cap PO PRN ×2 (02:29→08:56)
[2020-01-12] MEDS: Pantoprazole 40 MG Tab.CR PO SCH (06:42)
[2020-01-12 06:54] LABS: CARBON DIOXIDE,CO2 28.1 mmol/L (21.0-32.0); POTASSIUM,K 5.3 mmol/L (3.5-5.1)
[2020-01-12] MEDS: Insulin Aspart 100 Units/ML 3 ML Pen SUBCUT SCH ×6 (08:37→18:24)
[2020-01-12] MEDS: Metoprolol Succinate 50 MG Tab.ER PO SCH (08:57)
[2020-01-12] MEDS: Furosemide 40 MG Tab PO SCH (08:57)
[2020-01-12] MEDS: Dexamethasone 4 MG Tab PO SCH (08:58)
[2020-01-12] MEDS ORDERED: Furosemide 80 MG Tab PO SCH (09:00)
[2020-01-12] MEDS ORDERED: HYDROmorphone 2 MG Tab PO PRN (09:15)
--- NOTE | 2020-01-12 09:34 | PCM.PN ---
- General Info Date of Service: 01/12/20 - Review of Systems Systems Review Comment:: feeling better - Patient Data Vitals - Most Recent: Last Vital Signs Temp 36.6 C 01/12/20 08:53 Pulse 61 01/12/20 08:57 Resp 16 01/12/20 08:53 BP 169/70 H 01/12/20 08:57 Pulse Ox 90 L 01/12/20 08:53 Weight - Most Recent: 154.2 kg I&O - Last 24 Hours: Intake & Output 01/11/20 01/12/20 01/12/20 22:59 06:59 14:59 Intake Total 920 680 Output Total 850 820 Balance 70 -140 Lab Results Last 24 Hours: Laboratory Results - last 24 hr 01/10/20 01/11/20 01/11/20 Range/Units 20:27 06:27 10:50 WBC (4.0-11.0) K/uL RBC (4.50-5.90) M/uL Hgb (13.0-17.0) g/dL Hct (38.0-50.0) % MCV (80.0-98.0) fL MCH (27.0-32.0) pg MCHC (31.0-37.0) g/dL RDW Std Deviation (28.0-62.0) fl RDW Coeff of Edita (11.0-15.0) % Plt Count (150-400) K/uL MPV (7.40-12.00) fL Neut % (Auto) (48.0-80.0) % Lymph % (Auto) (16.0-40.0) % [place] % (Auto) (0.0-15.0) % Eos % (Auto) (0.0-7.0) % Baso % (Auto) (0.0-1.5) % Neut # (Auto) (1.4-5.7) K/uL Lymph # (Auto) (0.6-2.4) K/uL [place] # (Auto) (0.0-0.8) K/uL Eos # (Auto) (0.0-0.7) K/uL Baso # (Auto) (0.0-0.1) K/uL Nucleated RBC % /100WBC Nucleated RBCs # K/uL Sodium (136-148) mmol/L Potassium (3.5-5.1) mmol/L Chloride (98-107) mmol/L Carbon Dioxide (21.0-32.0) mmol/L BUN (7.0-18.0) mg/dL Creatinine (0.8-1.3) mg/dL Est Cr Clr Drug Dosing mL/min Estimated GFR (MDRD) ml/min Glucose (74-106) mg/dL POC Glucose 259 H 172 H (60-110) mg/dL Calcium (8.5-10.1) mg/dL Urine Color YELLOW Urine Appearance CLEAR Urine pH 5.5 (5.0-8.0) Ur Specific [place] 1.025 (1.001-1.035) Urine Protein TRACE H (NEGATIVE) mg/dL Urine Glucose (UA) NEGATIVE (NEGATIVE) mg/dL Urine Ketones NEGATIVE (NEGATIVE) mg/dL Urine Occult Blood NEGATIVE (NEGATIVE) Urine Nitrite NEGATIVE (NEGATIVE) Urine Bilirubin NEGATIVE (NEGATIVE) Urine Urobilinogen 0.2 (<2.0) EU/dL Ur Leukocyte Esterase NEGATIVE (NEGATIVE) Urine RBC NONE SEEN (0-2/HPF) Urine WBC 0-2 (0-5/HPF) Ur Epithelial Cells RARE (NONE-FEW) Urine Bacteria RARE (NEGATIVE) Urine Mucus RARE (NONE-MOD) 01/11/20 01/11/20 01/12/20 Range/Units 13:29 17:00 06:15 WBC 6.68 (4.0-11.0) K/uL RBC 4.81 (4.50-5.90) M/uL Hgb 14.1 (13.0-17.0) g/dL Hct 42.7 (38.0-50.0) % MCV 88.8 (80.0-98.0) fL MCH 29.3 (27.0-32.0) pg MCHC 33.0 (31.0-37.0) g/dL RDW Std Deviation 42.4 (28.0-62.0) fl RDW Coeff of Edita 13 (11.0-15.0) % Plt Count 205 (150-400) K/uL MPV 10.60 (7.40-12.00) fL Neut % (Auto) 76.7 (48.0-80.0) % Lymph % (Auto) 15.1 L (16.0-40.0) % [place] % (Auto) 8.2 (0.0-15.0) % Eos % (Auto) 0.0 (0.0-7.0) % Baso % (Auto) 0.0 (0.0-1.5) % Neut # (Auto) 5.1 (1.4-5.7) K/uL Lymph # (Auto) 1.0 (0.6-2.4) K/uL [place] # (Auto) 0.6 (0.0-0.8) K/uL Eos # (Auto) 0.0 (0.0-0.7) K/uL Baso # (Auto) 0.0 (0.0-0.1) K/uL Nucleated RBC % 0.0 /100WBC Nucleated RBCs # 0 K/uL Sodium (136-148) mmol/L Potassium (3.5-5.1) mmol/L Chloride (98-107) mmol/L Carbon Dioxide (21.0-32.0) mmol/L BUN (7.0-18.0) mg/dL Creatinine (0.8-1.3) mg/dL Est Cr Clr Drug Dosing mL/min Estimated GFR (MDRD) ml/min Glucose (74-106) mg/dL POC Glucose 157 H 237 H (60-110) mg/dL Calcium (8.5-10.1) mg/dL Urine Color Urine Appearance Urine pH (5.0-8.0) Ur Specific [place] (1.001-1.035) Urine Protein (NEGATIVE) mg/dL Urine Glucose (UA) (NEGATIVE) mg/dL Urine Ketones (NEGATIVE) mg/dL Urine Occult Blood (NEGATIVE) Urine Nitrite (NEGATIVE) Urine Bilirubin (NEGATIVE) Urine Urobilinogen (<2.0) EU/dL Ur Leukocyte Esterase (NEGATIVE) Urine RBC (0-2/HPF) Urine WBC (0-5/HPF) Ur Epithelial Cells (NONE-FEW) Urine Bacteria (NEGATIVE) Urine Mucus (NONE-MOD) 01/12/20 01/12/20 Range/Units 06:15 06:40 WBC (4.0-11.0) K/uL RBC (4.50-5.90) M/uL Hgb (13.0-17.0) g/dL Hct (38.0-50.0) % MCV (80.0-98.0) fL MCH (27.0-32.0) pg MCHC (31.0-37.0) g/dL RDW Std Deviation (28.0-62.0) fl RDW Coeff of Edita (11.0-15.0) % Plt Count (150-400) K/uL MPV (7.40-12.00) fL Neut % (Auto) (48.0-80.0) % Lymph % (Auto) (16.0-40.0) % [place] % (Auto) (0.0-15.0) % Eos % (Auto) (0.0-7.0) % Baso % (Auto) (0.0-1.5) % Neut # (Auto) (1.4-5.7) K/uL Lymph # (Auto) (0.6-2.4) K/uL [place] # (Auto) (0.0-0.8) K/uL Eos # (Auto) (0.0-0.7) K/uL Baso # (Auto) (0.0-0.1) K/uL Nucleated RBC % /100WBC Nucleated RBCs # K/uL Sodium 134 L (136-148) mmol/L Potassium 5.3 H (3.5-5.1) mmol/L Chloride 100 (98-107) mmol/L Carbon Dioxide 28.1 (21.0-32.0) mmol/L BUN 26 H (7.0-18.0) mg/dL Creatinine 1.3 (0.8-1.3) mg/dL Est Cr Clr Drug Dosing 54.59 mL/min Estimated GFR (MDRD) 54.6 ml/min Glucose 240 H (74-106) mg/dL POC Glucose 258 H (60-110) mg/dL Calcium 8.6 (8.5-10.1) mg/dL Urine Color Urine Appearance Urine pH (5.0-8.0) Ur Specific [place] (1.001-1.035) Urine Protein (NEGATIVE) mg/dL Urine Glucose (UA) (NEGATIVE) mg/dL Urine Ketones (NEGATIVE) mg/dL Urine Occult Blood (NEGATIVE) Urine Nitrite (NEGATIVE) Urine Bilirubin (NEGATIVE) Urine Urobilinogen (<2.0) EU/dL Ur Leukocyte Esterase (NEGATIVE) Urine RBC (0-2/HPF) Urine WBC (0-5/HPF) Ur Epithelial Cells (NONE-FEW) Urine Bacteria (NEGATIVE) Urine Mucus (NONE-MOD) Med Orders - Current: Current Medications Acetaminophen (Tylenol) 650 mg PO Q4H PRN PRN Reason: Pain (Mild 1-3)/fever Benzonatate (Tessalon Perles) 100 mg PO QID PRN PRN Reason: Cough Last Admin: 01/12/20 08:56 Dose: 100 mg Documented by: Clonazepam (Klonopin) 0.5 mg PO BID PRN PRN Reason: pain/sleep Dexamethasone (Dexamethasone) 6 mg PO DAILY [facility] Last Admin: 01/12/20 08:58 Dose: 6 mg Documented by: Dextrose/Water (Dextrose 50% In Water) 50 ml IV ASDIRECTED PRN PRN Reason: Hypoglycemia Dextrose/Water (Dextrose 50% In Water) 50 ml IV ASDIRECTED PRN PRN Reason: Hypoglycemia Dextrose/Water (Dextrose 50% In Water) 50 ml IV ASDIRECTED PRN PRN Reason: Hypoglycemia Enoxaparin Sodium (Lovenox) 40 mg SUBCUT Q24H [facility] Last Admin: 01/11/20 13:56 Dose: 40 mg Documented by: Fluticasone Propionate (Flonase) 0 gm NASBOTH DAILY PRN PRN Reason: allergies/congestion Furosemide (Lasix) 40 mg PO DAILY [facility] Last Admin: 01/12/20 08:57 Dose: 40 mg Documented by: Glucagon (Glucagen) 1 mg IM ASDIRECTED PRN PRN Reason: Hypoglycemia Glucagon (Glucagen) 1 mg IM ASDIRECTED PRN PRN Reason: Hypoglycemia Glucagon (Glucagen) 1 mg IM ASDIRECTED PRN PRN Reason: Hypoglycemia Hydrochlorothiazide (Hydrochlorothiazide) 25 mg PO DAILY PRN PRN Reason: swelling Hydromorphone HCl (Dilaudid) 2 mg PO Q4H PRN PRN Reason: Pain Levofloxacin/Dextrose 750 mg/ (Premix) 150 mls @ 100 mls/hr IV Q24H [facility] Last Admin: 01/11/20 13:57 Dose: 100 mls/hr Documented by: Remdesivir 100 mg/ Sodium (Chloride) 100 mls @ 100 mls/hr IV Q24H [facility] Stop: 01/13/20 15:59 Last Admin: 01/11/20 16:36 Dose: Not Given Documented by: Insulin Aspart (Novolog) 0 unit SUBCUT TIDAC [facility]; Protocol Last Admin: 01/12/20 08:37 Dose: 9 units Documented by: Insulin Aspart (Novolog) 20 unit SUBCUT TIDAC [facility] Insulin Glargine (Lantus Solostar) 45 units SUBCUT BEDTIME [facility] Metoprolol Succinate (Toprol Xl) 100 mg PO DAILY [facility] Last Admin: 01/12/20 08:57 Dose: 100 mg Documented by: Nitroglycerin (Nitrostat) 0.4 mg SL ASDIRECTED PRN PRN Reason: Chest Pain Pantoprazole Sodium (Protonix) 40 mg PO ACBREAKFAST [facility] Last Admin: 01/12/20 06:42 Dose: 40 mg Documented by: Quinapril HCl (Accupril) 40 mg PO BID [facility] Last Admin: 01/12/20 08:55 Dose: 40 mg Documented by: Sodium Chloride (Saline Flush) 2.5 ml FLUSH ASDIRECTED PRN PRN Reason: Keep Vein Open Last Admin: 01/10/20 11:34 Dose: 2.5 ml Documented by: Sodium Chloride (Saline Flush) 10 ml FLUSH ASDIRECTED PRN PRN Reason: Keep Vein Open Last Admin: 01/10/20 11:34 Dose: 10 ml Documented by: Discontinued Medications Dexamethasone (Decadron) 6 mg IVPUSH ONETIME ONE Stop: 01/10/20 11:13 Last Admin: 01/10/20 11:34 Dose: 6 mg Documented by: Furosemide (Lasix) 80 mg PO DAILY [facility] Hydromorphone HCl (Dilaudid) 2 mg PO Q4H PRN PRN Reason: Pain Remdesivir 100 mg/ Sodium (Chloride) 100 mls @ 100 mls/hr IV Q24H [facility] Stop: 01/14/20 14:44 Remdesivir 200 mg/ Sodium (Chloride) 250 mls @ 250 mls/hr IV ONETIME ONE Stop: 01/10/20 13:32 Last Admin: 01/10/20 15:16 Dose: 250 mls/hr Documented by: Remdesivir 200 mg/ Sodium (Chloride) 250 mls @ 250 mls/hr IV ONETIME ONE Stop: 01/10/20 13:35 Last Admin: 01/10/20 18:23 Dose: Not Given Documented by: Remdesivir 200 mg/ Sodium (Chloride) 250 mls @ 250 mls/hr IV ONETIME ONE Stop: 01/10/20 15:39 Last Admin: 01/10/20 18:22 Dose: Not Given Documented by: Remdesivir 100 mg/ Sodium (Chloride) 100 mls @ 100 mls/hr IV Q24H [facility] Stop: 01/14/20 14:44 Last Admin: 01/11/20 15:30 Dose: 100 mls/hr Documented by: Insulin Aspart (Novolog) 10 unit SUBCUT TIDAC [facility] Last Admin: 01/12/20 08:38 Dose: 10 units Documented by: Insulin Glargine (Lantus Solostar) 55 units SUBCUT BEDTIME [facility] Insulin Glargine (Lantus Solostar) 25 units SUBCUT BEDTIME [facility] Last Admin: 01/10/20 20:41 Dose: 25 units Documented by: Insulin Glargine (Lantus Solostar) 35 units SUBCUT BEDTIME [facility] Last Admin: 01/11/20 21:21 Dose: 35 unit Documented by: Iopamidol (Isovue Multipack-370 (76%)) 50 ml IVPUSH ONETIME STA Stop: 01/10/20 12:52 Last Admin: 01/10/20 12:52 Dose: 50 ml Documented by: Non-Formulary Medication (Insulin Lispro [Humalog Kwikpen U-200]) 20 units SUBCUT TIDAC [facility] Non-Formulary Medication (Quinapril [Accupril]) 40 mg PO BID [facility] Last Admin: 01/10/20 20:50 Dose: Not Given Documented by: - Exam General: Alert, Oriented Lungs: Clear to Auscultation, Normal Respiratory Effort Cardiovascular: Regular Rate, Regular Rhythm GI/Abdominal Exam: Soft, Non-Tender, No Distention Extremities: Non-Tender, No Pedal Edema Skin: Warm, Dry, Intact Neurological: No New Focal Deficit Sepsis Event Note - Evaluation Sepsis Screening Result: No Definite Risk - Focused Exam Vital Signs: Vital Signs Temp Pulse Pulse Resp BP BP Pulse Ox 01/12/20 08:57 61 169/70 H 01/12/20 08:53 36.6 C 61 16 169/70 H 90 L 01/12/20 04:00 36.7 C 68 18 128/68 93 L 01/12/20 00:00 36.8 C 80 18 132/65 94 L - Problem List Review Problem List Initiated/Reviewed/Updated: Yes - My Orders Last 24 Hours: My Active Orders 01/11/20 09:00 Metoprolol Succinate [Toprol XL] 100 mg PO DAILY dexAMETHasone 6 mg PO DAILY 01/11/20 12:40 Dextrose 50% in Water 50 ml IV ASDIRECTED PRN Glucagon,Human Recombinant [GlucaGen] 1 mg IM ASDIRECTED PRN 01/11/20 15:00 Remdesivir (Eua) [Remdesivir (EUA)] 100 mg Sodium Chloride 0.9% [Normal Saline] 100 ml IV Q24H 01/12/20 02:20 Benzonatate [Tessalon Perles] 100 mg PO QID PRN 01/12/20 09:00 Furosemide [Lasix] 40 mg PO DAILY 01/12/20 09:15 HYDROmorphone [Dilaudid] 2 mg PO Q4H PRN 01/12/20 11:30 Insulin Aspart [NovoLOG] 20 unit SUBCUT TIDAC 01/12/20 21:00 Insulin Glarg,Human.Rec.Analog [LantUS Solostar] 45 units SUBCUT BEDTIME 01/13/20 05:11 CBC WITH AUTO DIFF [HEME] AM COMPREHENSIVE METABOLIC PN,CMP [CHEM] AM - Plan Plan:: 69 yo male admitted for COVID COVID: 2 liters NC, continue dexamethasone, Remdesivir, and lovenox. Will restart home does of lasix today, DM: patient eating more so will increase insulin to novolog 20 TID and 45 lantus at night.
[2020-01-12] MEDS: Levofloxacin/Dextrose 5%-Water 750 MG in Premix Bag 1 BAG IV SCH (13:55)
[2020-01-12] MEDS: Enoxaparin 40 MG/0.4 ML Syringe SUBCUT SCH (13:55)
[2020-01-12] MEDS: REMDESIVIR 100 MG in Sodium Chloride 0.9% 100 ML IV SCH (15:45)
[2020-01-12] MEDS: ClonazePAM 0.5 MG Tab PO PRN ×2 (15:59→23:06)
[2020-01-12] MEDS ORDERED: Insulin Glargine,Human Rec. Analog 100 Units/ML 3 ML Pen SUBCUT SCH (21:00)
[2020-01-13] MEDS: Pantoprazole 40 MG Tab.CR PO SCH ×2 (06:05→06:50)
[2020-01-13 06:44] LABS: CARBON DIOXIDE,CO2 28.7 mmol/L (21.0-32.0); POTASSIUM,K 5.2 mmol/L (3.5-5.1)
[2020-01-13] MEDS: Insulin Aspart 100 Units/ML 3 ML Pen SUBCUT SCH ×6 (07:50→19:51)
[2020-01-13] MEDS: Furosemide 40 MG Tab PO SCH (10:22)
[2020-01-13] MEDS: Dexamethasone 4 MG Tab PO SCH (10:22)
[2020-01-13] MEDS: Metoprolol Succinate 50 MG Tab.ER PO SCH (10:23)
[2020-01-13] MEDS: Enoxaparin 40 MG/0.4 ML Syringe SUBCUT SCH (14:51)
[2020-01-13] MEDS: Levofloxacin/Dextrose 5%-Water 750 MG in Premix Bag 1 BAG IV SCH (14:51)
[2020-01-13] MEDS: REMDESIVIR 100 MG in Sodium Chloride 0.9% 100 ML IV SCH (16:50)
--- NOTE | 2020-01-13 19:19 | PCM.DCSUM1 ---
<Dawson Solano - Last Filed: 01/13/20 19:50> Discharge Summary - Hospital Course Free Text/Narrative:: 69 yo male admitted for COVID infection. Patient was diagnosed with covid one week prior to admission. CT chest showed bilateral ground glass opacities. PMH includes CAD, DM, HTN, Sleep apnea, osteoarthritis. Patient treated with dexamathasone, remdesivir, and IV antibiotics. Patient required 1-2L oxygen support intermittently during admission. Discharged home in stable condition with home oxygen to be used with ambulation, dexamethasone, oral antibiotics. - Discharge Data Discharge Date: 01/13/20 Discharge Disposition: DC/Tfer to Acute Hospital 02 Condition: Stable - Referral to Home Health Primary Care Physician: Lincoln Murrell MD - Discharge Plan Prescriptions/Med Rec: Cefdinir 300 mg PO BID 2 Days #4 capsule dexAMETHasone [Dexamethasone] 6 mg PO DAILY 7 Days #21 tablet Home Medications: Home Meds Esomeprazole [NexIUM] 40 mg PO ACBREAKFAST 05/30/13 [History] Quinapril [Accupril] 40 mg PO BID 05/30/13 [History] Metoprolol Succinate [Toprol XL] 100 mg PO DAILY 06/23/13 [History] metFORMIN [Glucophage XR] 750 mg PO BIDMEALS 10/11/13 [History] ClonazePAM [KlonoPIN] 0.5 mg PO BID PRN 09/14/16 [History] Fluticasone Propionate [Flonase] 2 sprays NASBOTH DAILY PRN 09/14/16 [History] Furosemide [Lasix] 80 mg PO DAILY 09/14/16 [History] HYDROmorphone HCl [Dilaudid] 2 mg PO Q4H PRN 09/14/16 [History] Insulin Glarg,Human.Rec.Analog [LantUS Solostar] 55 units SUBCUT BEDTIME [History] Insulin Lispro [Humalog Kwikpen U-200] 20 units SUBCUT TIDAC 09/14/16 [History] Clopidogrel [Plavix] 75 mg PO DAILY #0 09/15/16 [Rx] Nitroglycerin [Nitrostat] 0.4 mg SL ASDIRECTED PRN #1 bottle 09/15/16 [Rx] Hydrochlorothiazide 25 mg PO DAILY PRN 01/10/20 [History] Cefdinir 300 mg PO BID 2 Days #4 capsule 01/13/20 [Rx] Rosuvastatin Calcium 40 mg PO DAILY 01/13/20 [History] dexAMETHasone [Dexamethasone] 6 mg PO DAILY 7 Days #21 tablet 01/13/20 [Rx] Patient Handouts: COVID-19 Frequently Asked Questions, COVID-19, Cefdinir capsules, COVID-19: How to Protect Yourself and Others - [facility], Dexamethasone tablets, Prevent the Spread of COVID-19 if You Are Sick - [facility] Referrals: Lincoln Murrell MD [Primary Care Provider] - 01/29/20 8:30 am - Discharge Summary/Plan Comment DC Time >30 min.: Yes - General Info Date of Service: 01/13/20 Admission Dx/Problem (Free Text: Patient states that he feels fine and does not need to use supplemental oxygen. Denies SOB, chest pain, fever, chills, nausea, diarrhea, abdominal pain. States that he would like to go home. - Review of Systems General: Denies: Fever, Chills Pulmonary: Denies: Shortness of Breath, Pleuritic Chest Pain, Cough Cardiovascular: Denies: Chest Pain, Dyspnea on Exertion Gastrointestinal: Denies: Abdominal Pain, Decreased Appetite, Nausea Musculoskeletal: Denies: Back Pain Neurological: Denies: Dizziness, Headache - Patient Data Vitals - Most Recent: Last Vital Signs Temp 96.8 F L 01/13/20 12:00 Pulse 47 L 01/13/20 12:00 Resp 18 01/13/20 12:00 BP 170/73 H 01/13/20 12:00 Pulse Ox 85 L 01/13/20 15:44 Weight - Most Recent: 154.2 kg I&O - Last 24 hours: Intake & Output 01/13/20 01/13/20 01/13/20 06:59 14:59 22:59 Intake Total 400 Balance 400 Lab Results - Last 24 hrs: Laboratory Results - last 24 hr 01/12/20 01/13/20 01/13/20 Range/Units 21:32 05:50 05:50 WBC 8.66 (4.0-11.0) K/uL RBC 4.82 (4.50-5.90) M/uL Hgb 14.1 (13.0-17.0) g/dL Hct 43.4 (38.0-50.0) % MCV 90.0 (80.0-98.0) fL MCH 29.3 (27.0-32.0) pg MCHC 32.5 (31.0-37.0) g/dL RDW Std Deviation 42.8 (28.0-62.0) fl RDW Coeff of Edita 13 (11.0-15.0) % Plt Count 228 (150-400) K/uL MPV 11.10 (7.40-12.00) fL Add Manual Diff YES Neutrophils % (Manual) 75 (48.0-80.0) % Band Neutrophils % 4 % Lymphocytes % (Manual) 15 L (16.0-40.0) % Monocytes % (Manual) 6 (0.0-15.0) % Nucleated RBC % 0.0 /100WBC Absolute Seg Neuts 6.5 H (1.4-5.7) Band Neutrophils # 0.3 Lymphocytes # (Manual) 1.3 (0.6-2.4) Monocytes # (Manual) 0.5 (0.0-0.8) Nucleated RBCs # 0 K/uL Sodium 135 L (136-148) mmol/L Potassium 5.2 H (3.5-5.1) mmol/L Chloride 100 (98-107) mmol/L Carbon Dioxide 28.7 (21.0-32.0) mmol/L BUN 29 H (7.0-18.0) mg/dL Creatinine 1.3 (0.8-1.3) mg/dL Est Cr Clr Drug Dosing 54.59 mL/min Estimated GFR (MDRD) 54.6 ml/min Glucose 309 H (74-106) mg/dL POC Glucose 391 H (60-110) mg/dL Calcium 8.7 (8.5-10.1) mg/dL Total Bilirubin 0.3 (0.2-1.0) mg/dL AST 32 (15-37) IU/L ALT 33 (14-63) IU/L Alkaline Phosphatase 84 (46-116) U/L Total Protein 7.3 (6.4-8.2) g/dL Albumin 2.7 L (3.4-5.0) g/dL Globulin 4.6 H (2.6-4.0) g/dL Albumin/Globulin Ratio 0.6 L (0.9-1.6) 01/13/20 01/13/20 Range/Units 06:09 15:33 WBC (4.0-11.0) K/uL RBC (4.50-5.90) M/uL Hgb (13.0-17.0) g/dL Hct (38.0-50.0) % MCV (80.0-98.0) fL MCH (27.0-32.0) pg MCHC (31.0-37.0) g/dL RDW Std Deviation (28.0-62.0) fl RDW Coeff of Edita (11.0-15.0) % Plt Count (150-400) K/uL MPV (7.40-12.00) fL Add Manual Diff Neutrophils % (Manual) (48.0-80.0) % Band Neutrophils % % Lymphocytes % (Manual) (16.0-40.0) % Monocytes % (Manual) (0.0-15.0) % Nucleated RBC % /100WBC Absolute Seg Neuts (1.4-5.7) Band Neutrophils # Lymphocytes # (Manual) (0.6-2.4) Monocytes # (Manual) (0.0-0.8) Nucleated RBCs # K/uL Sodium (136-148) mmol/L Potassium (3.5-5.1) mmol/L Chloride (98-107) mmol/L Carbon Dioxide (21.0-32.0) mmol/L BUN (7.0-18.0) mg/dL Creatinine (0.8-1.3) mg/dL Est Cr Clr Drug Dosing mL/min Estimated GFR (MDRD) ml/min Glucose (74-106) mg/dL POC Glucose 395 H 321 H (60-110) mg/dL Calcium (8.5-10.1) mg/dL Total Bilirubin (0.2-1.0) mg/dL AST (15-37) IU/L ALT (14-63) IU/L Alkaline Phosphatase (46-116) U/L Total Protein (6.4-8.2) g/dL Albumin (3.4-5.0) g/dL Globulin (2.6-4.0) g/dL Albumin/Globulin Ratio (0.9-1.6) Med Orders - Current: Current Medications Acetaminophen (Tylenol) 650 mg PO Q4H PRN PRN Reason: Pain (Mild 1-3)/fever Benzonatate (Tessalon Perles) 100 mg PO QID PRN PRN Reason: Cough Last Admin: 01/12/20 08:56 Dose: 100 mg Documented by: Clonazepam (Klonopin) 0.5 mg PO BID PRN PRN Reason: pain/sleep Last Admin: 01/12/20 23:06 Dose: 0.5 mg Documented by: Dexamethasone (Dexamethasone) 6 mg PO DAILY [facility] Last Admin: 01/13/20 10:22 Dose: 6 mg Documented by: Dextrose/Water (Dextrose 50% In Water) 50 ml IV ASDIRECTED PRN PRN Reason: Hypoglycemia Dextrose/Water (Dextrose 50% In Water) 50 ml IV ASDIRECTED PRN PRN Reason: Hypoglycemia Dextrose/Water (Dextrose 50% In Water) 50 ml IV ASDIRECTED PRN PRN Reason: Hypoglycemia Enoxaparin Sodium (Lovenox) 40 mg SUBCUT Q24H [facility] Last Admin: 01/13/20 14:51 Dose: 40 mg Documented by: Fluticasone Propionate (Flonase) 0 gm NASBOTH DAILY PRN PRN Reason: allergies/congestion Furosemide (Lasix) 40 mg PO DAILY [facility] Last Admin: 01/13/20 10:22 Dose: 40 mg Documented by: Glucagon (Glucagen) 1 mg IM ASDIRECTED PRN PRN Reason: Hypoglycemia Hydrochlorothiazide (Hydrochlorothiazide) 25 mg PO DAILY PRN PRN Reason: swelling Hydromorphone HCl (Dilaudid) 2 mg PO Q4H PRN PRN Reason: Pain Levofloxacin/Dextrose 750 mg/ (Premix) 150 mls @ 100 mls/hr IV Q24H [facility] Last Admin: 01/13/20 14:51 Dose: 100 mls/hr Documented by: Insulin Aspart (Novolog) 0 unit SUBCUT TIDAC [facility]; Protocol Last Admin: 01/13/20 15:36 Dose: 4 units Documented by: Insulin Aspart (Novolog) 20 unit SUBCUT TIDAC [facility] Last Admin: 01/13/20 15:37 Dose: 20 units Documented by: Insulin Glargine (Lantus Solostar) 45 units SUBCUT BEDTIME [facility] Last Admin: 01/12/20 21:28 Dose: 45 unit Documented by: Metoprolol Succinate (Toprol Xl) 100 mg PO DAILY [facility] Last Admin: 01/13/20 10:23 Dose: 100 mg Documented by: Nitroglycerin (Nitrostat) 0.4 mg SL ASDIRECTED PRN PRN Reason: Chest Pain Pantoprazole Sodium (Protonix) 40 mg PO ACBREAKFAST [facility] Last Admin: 01/13/20 06:50 Dose: Not Given Documented by: Quinapril HCl (Accupril) 40 mg PO BID [facility] Last Admin: 01/13/20 10:20 Dose: 40 mg Documented by: Sodium Chloride (Saline Flush) 2.5 ml FLUSH ASDIRECTED PRN PRN Reason: Keep Vein Open Last Admin: 01/10/20 11:34 Dose: 2.5 ml Documented by: Sodium Chloride (Saline Flush) 10 ml FLUSH ASDIRECTED PRN PRN Reason: Keep Vein Open Last Admin: 01/10/20 11:34 Dose: 10 ml Documented by: Discontinued Medications Dexamethasone (Decadron) 6 mg IVPUSH ONETIME ONE Stop: 01/10/20 11:13 Last Admin: 01/10/20 11:34 Dose: 6 mg Documented by: Furosemide (Lasix) 80 mg PO DAILY [facility] Hydromorphone HCl (Dilaudid) 2 mg PO Q4H PRN PRN Reason: Pain Remdesivir 100 mg/ Sodium (Chloride) 100 mls @ 100 mls/hr IV Q24H [facility] Stop: 01/14/20 14:44 Remdesivir 200 mg/ Sodium (Chloride) 250 mls @ 250 mls/hr IV ONETIME ONE Stop: 01/10/20 13:32 Last Admin: 01/10/20 15:16 Dose: 250 mls/hr Documented by: Remdesivir 200 mg/ Sodium (Chloride) 250 mls @ 250 mls/hr IV ONETIME ONE Stop: 01/10/20 13:35 Last Admin: 01/10/20 18:23 Dose: Not Given Documented by: Remdesivir 200 mg/ Sodium (Chloride) 250 mls @ 250 mls/hr IV ONETIME ONE Stop: 01/10/20 15:39 Last Admin: 01/10/20 18:22 Dose: Not Given Documented by: Remdesivir 100 mg/ Sodium (Chloride) 100 mls @ 100 mls/hr IV Q24H [facility] Stop: 01/14/20 14:44 Last Admin: 01/11/20 15:30 Dose: 100 mls/hr Documented by: Remdesivir 100 mg/ Sodium (Chloride) 100 mls @ 100 mls/hr IV Q24H [facility] Stop: 01/13/20 15:59 Last Admin: 01/13/20 16:50 Dose: 100 mls/hr Documented by: Insulin Aspart (Novolog) 10 unit SUBCUT TIDAC [facility] Last Admin: 01/12/20 08:38 Dose: 10 units Documented by: Insulin Glargine (Lantus Solostar) 55 units SUBCUT BEDTIME [facility] Insulin Glargine (Lantus Solostar) 25 units SUBCUT BEDTIME [facility] Last Admin: 01/10/20 20:41 Dose: 25 units Documented by: Insulin Glargine (Lantus Solostar) 35 units SUBCUT BEDTIME [facility] Last Admin: 01/11/20 21:21 Dose: 35 unit Documented by: Iopamidol (Isovue Multipack-370 (76%)) 50 ml IVPUSH ONETIME STA Stop: 01/10/20 12:52 Last Admin: 01/10/20 12:52 Dose: 50 ml Documented by: Non-Formulary Medication (Insulin Lispro [Humalog Kwikpen U-200]) 20 units SUBCUT TIDAC [facility] Non-Formulary Medication (Quinapril [Accupril]) 40 mg PO BID [facility] Last Admin: 01/10/20 20:50 Dose: Not Given Documented by: - Exam General: Reports: Alert, Oriented Lungs: Reports: Clear to Auscultation, Normal Respiratory Effort Cardiovascular: Reports: Regular Rate, Regular Rhythm GI/Abdominal Exam: Normal Bowel Sounds, Soft, Non-Tender Extremities: Pedal Edema Psy/Mental Status: Reports: Alert, Normal Affect, Normal Mood <Arie Caal - Last Filed: 01/14/20 18:02> Discharge Summary - Referral to Home Health Primary Care Physician: Lincoln Murrell MD - Patient Data Vitals - Most Recent: Last Vital Signs Temp 36.6 C 01/13/20 16:00 Pulse 51 L 01/13/20 16:00 Resp 20 01/13/20 16:00 BP 178/74 H 01/13/20 16:00 Pulse Ox 90 L 01/13/20 16:00 Med Orders - Current: Current Medications Discontinued Medications Acetaminophen (Tylenol) 650 mg PO Q4H PRN PRN Reason: Pain (Mild 1-3)/fever Benzonatate (Tessalon Perles) 100 mg PO QID PRN PRN Reason: Cough Last Admin: 01/12/20 08:56 Dose: 100 mg Documented by: Clonazepam (Klonopin) 0.5 mg PO BID PRN PRN Reason: pain/sleep Last Admin: 01/12/20 23:06 Dose: 0.5 mg Documented by: Dexamethasone (Decadron) 6 mg IVPUSH ONETIME ONE Stop: 01/10/20 11:13 Last Admin: 01/10/20 11:34 Dose: 6 mg Documented by: Dexamethasone (Dexamethasone) 6 mg PO DAILY [facility] Last Admin: 01/13/20 10:22 Dose: 6 mg Documented by: Dextrose/Water (Dextrose 50% In Water) 50 ml IV ASDIRECTED PRN PRN Reason: Hypoglycemia Dextrose/Water (Dextrose 50% In Water) 50 ml IV ASDIRECTED PRN PRN Reason: Hypoglycemia Dextrose/Water (Dextrose 50% In Water) 50 ml IV ASDIRECTED PRN PRN Reason: Hypoglycemia Enoxaparin Sodium (Lovenox) 40 mg SUBCUT Q24H [facility] Last Admin: 01/13/20 14:51 Dose: 40 mg Documented by: Fluticasone Propionate (Flonase) 0 gm NASBOTH DAILY PRN PRN Reason: allergies/congestion Furosemide (Lasix) 80 mg PO DAILY [facility] Furosemide (Lasix) 40 mg PO DAILY [facility] Last Admin: 01/13/20 10:22 Dose: 40 mg Documented by: Glucagon (Glucagen) 1 mg IM ASDIRECTED PRN PRN Reason: Hypoglycemia Hydrochlorothiazide (Hydrochlorothiazide) 25 mg PO DAILY PRN PRN Reason: swelling Hydromorphone HCl (Dilaudid) 2 mg PO Q4H PRN PRN Reason: Pain Hydromorphone HCl (Dilaudid) 2 mg PO Q4H PRN PRN Reason: Pain Remdesivir 100 mg/ Sodium (Chloride) 100 mls @ 100 mls/hr IV Q24H [facility] Stop: 01/14/20 14:44 Remdesivir 200 mg/ Sodium (Chloride) 250 mls @ 250 mls/hr IV ONETIME ONE Stop: 01/10/20 13:32 Last Admin: 01/10/20 15:16 Dose: 250 mls/hr Documented by: Remdesivir 200 mg/ Sodium (Chloride) 250 mls @ 250 mls/hr IV ONETIME ONE Stop: 01/10/20 13:35 Last Admin: 01/10/20 18:23 Dose: Not Given Documented by: Levofloxacin/Dextrose 750 mg/ (Premix) 150 mls @ 100 mls/hr IV Q24H [facility] Last Admin: 01/13/20 14:51 Dose: 100 mls/hr Documented by: Remdesivir 200 mg/ Sodium (Chloride) 250 mls @ 250 mls/hr IV ONETIME ONE Stop: 01/10/20 15:39 Last Admin: 01/10/20 18:22 Dose: Not Given Documented by: Remdesivir 100 mg/ Sodium (Chloride) 100 mls @ 100 mls/hr IV Q24H [facility] Stop: 01/14/20 14:44 Last Admin: 01/11/20 15:30 Dose: 100 mls/hr Documented by: Remdesivir 100 mg/ Sodium (Chloride) 100 mls @ 100 mls/hr IV Q24H [facility] Stop: 01/13/20 15:59 Last Admin: 01/13/20 16:50 Dose: 100 mls/hr Documented by: Insulin Aspart (Novolog) 0 unit SUBCUT TIDAC [facility]; Protocol Last Admin: 01/13/20 19:51 Dose: Not Given Documented by: Insulin Aspart (Novolog) 10 unit SUBCUT TIDAC [facility] Last Admin: 01/12/20 08:38 Dose: 10 units Documented by: Insulin Aspart (Novolog) 20 unit SUBCUT TIDAC [facility] Last Admin: 01/13/20 19:51 Dose: Not Given Documented by: Insulin Glargine (Lantus Solostar) 55 units SUBCUT BEDTIME [facility] Insulin Glargine (Lantus Solostar) 25 units SUBCUT BEDTIME [facility] Last Admin: 01/10/20 20:41 Dose: 25 units Documented by: Insulin Glargine (Lantus Solostar) 35 units SUBCUT BEDTIME [facility] Last Admin: 01/11/20 21:21 Dose: 35 unit Documented by: Insulin Glargine (Lantus Solostar) 45 units SUBCUT BEDTIME [facility] Last Admin: 01/12/20 21:28 Dose: 45 unit Documented by: Iopamidol (Isovue Multipack-370 (76%)) 50 ml IVPUSH ONETIME STA Stop: 01/10/20 12:52 Last Admin: 01/10/20 12:52 Dose: 50 ml Documented by: Metoprolol Succinate (Toprol Xl) 100 mg PO DAILY [facility] Last Admin: 01/13/20 10:23 Dose: 100 mg Documented by: Nitroglycerin (Nitrostat) 0.4 mg SL ASDIRECTED PRN PRN Reason: Chest Pain Non-Formulary Medication (Insulin Lispro [Humalog Kwikpen U-200]) 20 units SUBCUT TIDAC [facility] Non-Formulary Medication (Quinapril [Accupril]) 40 mg PO BID [facility] Last Admin: 01/10/20 20:50 Dose: Not Given Documented by: Pantoprazole Sodium (Protonix) 40 mg PO ACBREAKFAST [facility] Last Admin: 01/13/20 06:50 Dose: Not Given Documented by: Quinapril HCl (Accupril) 40 mg PO BID [facility] Last Admin: 01/13/20 10:20 Dose: 40 mg Documented by: Sodium Chloride (Saline Flush) 2.5 ml FLUSH ASDIRECTED PRN PRN Reason: Keep Vein Open Last Admin: 01/10/20 11:34 Dose: 2.5 ml Documented by: Sodium Chloride (Saline Flush) 10 ml FLUSH ASDIRECTED PRN PRN Reason: Keep Vein Open Last Admin: 01/10/20 11:34 Dose: 10 ml Documented by: - Free Text/Narrative Note: I have seen and evaluated the patient. I have discussed findings and treatment plan with resident. I agree with the assessment and plan in the following note.
[2020-01-13 19:52] VITALS: BP 178/74; PULSE 51
== END 2020-01-13 20:50 | DRG 179 ==
LOC: MW.ED 10:52 → MW.MS 13:30 → UNDOADMIN 18:00 → UNDODISIN 01-13 20:50
PROVIDERS: ADMIT Internal Medicine; ATTEND Internal Medicine
PROC: XW033E5 Introduction of Remdesivir Anti-infective into Peripheral Vein, Percutaneous Approach, New Technology Group 5 (ICD-10-PCS; principal; 2020-01-10)
DX: U07.1 COVID-19 (principal); R09.02 Hypoxemia; Z88.6 Allergy status to analgesic agent; Z91.09 Other allergy status, other than to drugs and biological substances; Z79.02 Long term (current) use of antithrombotics/antiplatelets; I25.10 Atherosclerotic heart disease of native coronary artery without angina pectoris; E11.9 Type 2 diabetes mellitus without complications; I10 Essential (primary) hypertension; G47.30 Sleep apnea, unspecified; I25.2 Old myocardial infarction; Z95.5 Presence of coronary angioplasty implant and graft; M19.90 Unspecified osteoarthritis, unspecified site; G89.29 Other chronic pain; M54.9 Dorsalgia, unspecified; Z96.652 Presence of left artificial knee joint; Z90.89 Acquired absence of other organs; E66.9 Obesity, unspecified; Z86.14 Personal history of Methicillin resistant Staphylococcus aureus infection; Z79.899 Other long term (current) drug therapy; Z79.4 Long term (current) use of insulin; Z88.5 Allergy status to narcotic agent; Z88.8 Allergy status to other drugs, medicaments and biological substances
CPT/HCPCS: 36415; 71045; 71045-26; 71275; 71275-26; 80048; 80053; 81001; 82962; 84484; 85025; 85379; 93005; 93010; 96374; 99221; 99231; 99239; 99285; 99285-25; A9270-GY; J1100; J1650; J1815-GY; J1956; J7050; J8540; Q9967

== ENCOUNTER 2020-04-07 13:38 | Emergency (ER) | payer MEDICARE ==
--- NOTE | 2020-04-07 13:43 | EDM.PDOC ---
ED HPI GENERAL MEDICAL PROBLEM - General Chief Complaint: General Stated Complaint: chest pain Time Seen by Provider: 04/07/20 13:39 Source of Information: Reports: Patient History Limitations: Reports: No Limitations - History of Present Illness INITIAL COMMENTS - FREE TEXT/NARRATIVE: 69-year-old male past medical history CAD, type 2 diabetes, hypertension, hyperlipidemia, morbid obesity, COVID-19 infection last year presents for chest pain. Of note patient had a nuclear stress test on February 24 revealing mild reversible perfusion defect in distal anteroseptal and apical area compared to resting with mild hypokinesis and distal anteroseptal and apical areas. Patient notes that his nuclear stress test was for cardiac clearance for a knee replacement surgery. After the positive stress test patient went for cardiac catheterization at outside institution and had a stent placed in his LAD. Patient notes that he has several stents and has had 4 cardiac caths. Patient notes that for the last 2 days he has had palpitations and feeling in his left anterior chest. Does not describe his heart racing sensation. Notes this is associated with postnasal drip and mild cough nonproductive. Denies any fevers. Has mild shortness of breath associated with this. Denies any chest pain. chest Pain Score (Numeric/FACES): 8 - Related Data Allergies Allergy/AdvReac Type Severity Reaction Status Date / Time morphine Allergy Shortness Verified 04/07/20 14:25 of Breath smoke Allergy Shortness Uncoded 04/07/20 14:25 of Breath Home Meds: Home Meds Esomeprazole [NexIUM] 40 mg PO ACBREAKFAST 05/30/13 [History] Quinapril [Accupril] 40 mg PO BID 05/30/13 [History] Metoprolol Succinate [Toprol XL] 100 mg PO DAILY 06/23/13 [History] metFORMIN [Glucophage XR] 750 mg PO BIDMEALS 10/11/13 [History] ClonazePAM [KlonoPIN] 0.5 mg PO BID PRN 09/14/16 [History] Fluticasone Propionate [Flonase] 2 sprays NASBOTH DAILY PRN 09/14/16 [History] Furosemide [Lasix] 80 mg PO DAILY 09/14/16 [History] HYDROmorphone HCl [Dilaudid] 2 mg PO Q4H PRN 09/14/16 [History] Insulin Glarg,Human.Rec.Analog [LantUS Solostar] 55 units SUBCUT BEDTIME 09/14/16 [History] Insulin Lispro [Humalog Kwikpen U-200] 20 units SUBCUT TIDAC 09/14/16 [History] Clopidogrel [Plavix] 75 mg PO DAILY #0 09/15/16 [Rx] Nitroglycerin [Nitrostat] 0.4 mg SL ASDIRECTED PRN #1 bottle 09/15/16 [Rx] Hydrochlorothiazide 25 mg PO DAILY PRN 01/10/20 [History] Cefdinir 300 mg PO BID 2 Days #4 capsule 01/13/20 [Rx] Rosuvastatin Calcium 40 mg PO DAILY 01/13/20 [History] dexAMETHasone [Dexamethasone] 6 mg PO DAILY 7 Days #21 tablet 01/13/20 [Rx] Levofloxacin [Levaquin] 500 mg PO DAILY 5 Days #5 tablet 04/07/20 [Rx] Past Medical History - Past Health History Medical/Surgical History: Denies Medical/Surgical History HEENT History: Reports: Sinusitis Cardiovascular History: Reports: Blood Clots/VTE/DVT, CAD, Hypertension, MT, Stents Other Cardiovascular History: 8 stents done Respiratory History: Reports: Sleep Apnea Gastrointestinal History: Reports: None Other Genitourinary History: complains of frequent urination at night time Musculoskeletal History: Reports: Amputation, Back Pain, Chronic, Osteoarthritis Endocrine/Metabolic History: Reports: Diabetes, Type II, Obesity/BMI 30+ Hematologic History: Reports: None Immunologic History: Reports: None - Infectious Disease History Infectious 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 Pox, MRSA - Past Surgical History HEENT Surgical History: Reports: Naso-Sinus Surgery, Tonsillectomy, Other (See Below) Other HEENT Surgeries/Procedures: uvula surgery Cardiovascular Surgical History: Reports: None Other Cardiovascular Surgeries/Procedures: 3 heart surgeries with 8 stents placed Respiratory Surgical History: Reports: None Male Surgical History: Reports: None Endocrine Surgical History: Reports: None Musculoskeletal Surgical History: Reports: Knee Replacement Other Musculoskeletal Surgeries/Procedures:: left knee replacement Social & Family History - Family History Family Medical History: No Pertinent Family History - Caffeine Use Caffeine Use: Reports: Coffee - Living Situation & Occupation Living situation: Reports: Occupation: Disabled ED ROS GENERAL - Review of Systems Review Of Systems: Comprehensive ROS is negative, except as noted in HPI. ED EXAM, GENERAL - Physical Exam Exam: See Below Exam Limited By: No Limitations General Appearance: Alert, WD/WN, No Apparent Distress Throat/Mouth: Normal Voice, No Airway Compromise Head: Atraumatic, Normocephalic Neck: Normal Inspection Respiratory/Chest: No Respiratory Distress, Lungs Clear, Normal Breath Sounds, No Accessory Muscle Use Cardiovascular: Normal Peripheral Pulses, Regular Rate, Rhythm GI/Abdominal: Soft, Non-Tender, Other (Morbidly obese) Extremities: Normal Inspection Neurological: Alert, Normal Gait Psychiatric: Normal Affect, Normal Mood Skin Exam: Warm, Dry, Intact, Normal Color #1 Interpretation EKG Date: 04/07/20 Time: 13:47 Rhythm: NSR Rate (Beats/Min): 72 [place]: Normal P-Wave: Present QRS: Normal ST-T: Normal QT: Normal SC/PQ Interval: 231 Comparison: No Change EKG Interpretation Comments: No evidence of STEMI Course - Vital Signs Last Recorded V/S: Last Vital Signs Temp 97.5 F 04/07/20 13:45 Pulse 75 04/07/20 15:07 Resp 16 04/07/20 15:07 BP 154/72 H 04/07/20 15:07 Pulse Ox 97 04/07/20 15:07 - Orders/Labs/Meds Orders: Active Orders 24 hr Category Date Time Status Cardiac Monitoring [RC] . DIRECTED Care 04/07/20 13:55 Active EKG Documentation Completion [RC] STAT Care 04/07/20 13:55 Active Pulse Oximetry [RC] ASDIRECTED Care 04/07/20 13:55 Active RT Aerosol Therapy [RC] ASDIRECTED Care 04/07/20 14:09 Active Sodium Chloride 0.9% [Saline Flush] Med 04/07/20 13:55 Active 10 ml FLUSH ASDIRECTED PRN Sodium Chloride 0.9% [Saline Flush] Med 04/07/20 13:55 Active 2.5 ml FLUSH ASDIRECTED PRN Saline Lock Insert [OM.PC] Stat Oth 04/07/20 13:55 Ordered Medication Orders Sodium Chloride (Saline Flush) 10 ml FLUSH ASDIRECTED PRN PRN Reason: Keep Vein Open Sodium Chloride (Saline Flush) 2.5 ml FLUSH ASDIRECTED PRN PRN Reason: Keep Vein Open Labs: Laboratory Tests 04/07/20 04/07/20 04/07/20 Range/Units 13:58 14:00 14:00 WBC 6.24 (4.0-11.0) K/uL RBC 5.11 (4.50-5.90) M/uL Hgb 15.1 (13.0-17.0) g/dL Hct 44.8 (38.0-50.0) % MCV 87.7 (80.0-98.0) fL MCH 29.5 (27.0-32.0) pg MCHC 33.7 (31.0-37.0) g/dL RDW Std Deviation 46.2 (28.0-62.0) fl RDW Coeff of Edita 15 (11.0-15.0) % Plt Count 169 (150-400) K/uL MPV 9.60 (7.40-12.00) fL Neut % (Auto) 54.0 (48.0-80.0) % Lymph % (Auto) 29.6 (16.0-40.0) % [place] % (Auto) 11.9 (0.0-15.0) % Eos % (Auto) 4.3 (0.0-7.0) % Baso % (Auto) 0.2 (0.0-1.5) % Neut # (Auto) 3.4 (1.4-5.7) K/uL Lymph # (Auto) 1.9 (0.6-2.4) K/uL [place] # (Auto) 0.7 (0.0-0.8) K/uL Eos # (Auto) 0.3 (0.0-0.7) K/uL Baso # (Auto) 0.0 (0.0-0.1) K/uL Nucleated RBC % 0.0 /100WBC Nucleated RBCs # 0 K/uL INR 1.05 APTT 24.7 (18.6-31.3) SEC D-Dimer, Quantitative 0.35 (0.0-0.50) mg/L FEU Sodium (136-148) mmol/L Potassium (3.5-5.1) mmol/L Chloride (98-107) mmol/L Carbon Dioxide (21.0-32.0) mmol/L BUN (7.0-18.0) mg/dL Creatinine (0.8-1.3) mg/dL Est Cr Clr Drug Dosing mL/min Estimated GFR (MDRD) ml/min Glucose (74-106) mg/dL POC Glucose 142 H (60-110) mg/dL Calcium (8.5-10.1) mg/dL Magnesium (1.8-2.4) mg/dL Total Bilirubin (0.2-1.0) mg/dL AST (15-37) IU/L ALT (14-63) IU/L Alkaline Phosphatase (46-116) U/L Troponin I (0.000-0.056) ng/mL B-Natriuretic Peptide (<100) PG/ML Total Protein (6.4-8.2) g/dL Albumin (3.4-5.0) g/dL Globulin (2.6-4.0) g/dL Albumin/Globulin Ratio (0.9-1.6) TSH 3rd Generation (0.36-3.74) uIU/mL 04/07/20 04/07/20 Range/Units 14:00 14:00 WBC (4.0-11.0) K/uL RBC (4.50-5.90) M/uL Hgb (13.0-17.0) g/dL Hct (38.0-50.0) % MCV (80.0-98.0) fL MCH (27.0-32.0) pg MCHC (31.0-37.0) g/dL RDW Std Deviation (28.0-62.0) fl RDW Coeff of Edita (11.0-15.0) % Plt Count (150-400) K/uL MPV (7.40-12.00) fL Neut % (Auto) (48.0-80.0) % Lymph % (Auto) (16.0-40.0) % [place] % (Auto) (0.0-15.0) % Eos % (Auto) (0.0-7.0) % Baso % (Auto) (0.0-1.5) % Neut # (Auto) (1.4-5.7) K/uL Lymph # (Auto) (0.6-2.4) K/uL [place] # (Auto) (0.0-0.8) K/uL Eos # (Auto) (0.0-0.7) K/uL Baso # (Auto) (0.0-0.1) K/uL Nucleated RBC % /100WBC Nucleated RBCs # K/uL INR APTT (18.6-31.3) SEC D-Dimer, Quantitative (0.0-0.50) mg/L FEU Sodium 137 (136-148) mmol/L Potassium 3.9 (3.5-5.1) mmol/L Chloride 99 (98-107) mmol/L Carbon Dioxide 28.9 (21.0-32.0) mmol/L BUN 15 (7.0-18.0) mg/dL Creatinine 1.2 (0.8-1.3) mg/dL Est Cr Clr Drug Dosing 59.14 mL/min Estimated GFR (MDRD) 59.9 ml/min Glucose 150 H (74-106) mg/dL POC Glucose (60-110) mg/dL Calcium 9.5 (8.5-10.1) mg/dL Magnesium 1.6 L (1.8-2.4) mg/dL Total Bilirubin 0.7 (0.2-1.0) mg/dL AST 18 (15-37) IU/L ALT 27 (14-63) IU/L Alkaline Phosphatase 67 (46-116) U/L Troponin I < 0.050 (0.000-0.056) ng/mL B-Natriuretic Peptide 64 (<100) PG/ML Total Protein 7.3 (6.4-8.2) g/dL Albumin 3.5 (3.4-5.0) g/dL Globulin 3.8 (2.6-4.0) g/dL Albumin/Globulin Ratio 0.9 (0.9-1.6) TSH 3rd Generation 1.76 (0.36-3.74) uIU/mL Meds: Medications Generic Name Dose Route Start Last Admin Trade Name Freq PRN Reason Stop Dose Admin Sodium Chloride 10 ml 04/07/20 13:55 Saline Flush FLUSH ASDIRECTED PRN Keep Vein Open Sodium Chloride 2.5 ml 04/07/20 13:55 Saline Flush FLUSH ASDIRECTED PRN Keep Vein Open Discontinued Medications Generic Name Dose Route Start Last Admin Trade Name Freq PRN Reason Stop Dose Admin Albuterol/Ipratropium 3 ml 04/07/20 14:09 02/16/21 14:23 Duoneb 3.0-0.5 Mg/3 Ml NEB 04/07/20 14:10 3 ml ONETIME ONE Administration - Re-Assessments/Exams Free Text/Narrative Re-Assessment/Exam: 04/07/20 14:12 We will get chest pain work-up labs. Will get chest x-ray. We will follow up results and disposition accordingly. 04/07/20 15:17 Labs unremarkable; will d/c patient home with levaquin and steroids for acute bronchitis/sinusitis Departure - Departure Time of Disposition: 15:22 Disposition: Home, Self-Care 01 Condition: Good Clinical Impression: Sinusitis Qualifiers: Sinusitis location: other Chronicity: acute Recurrence: non-recurrent Qualified Code(s): J01.80 - Other acute sinusitis - Discharge Information Prescriptions: Levofloxacin [Levaquin] 500 mg PO DAILY 5 Days #5 tablet Instructions: Acute Bronchitis, Adult Referrals: Lincoln Murrell MD [Primary Care Provider] - Forms: ED Department Discharge Additional Instructions: The following information is given to patients seen in the emergency department who are being discharged to home. This information is to outline your options for follow-up care. We provide all patients seen in our emergency department with a follow-up referral. The need for follow-up, as well as the timing and circumstances, are variable depending upon the specifics of your emergency department visit. If you don't have a primary care physician on staff, we will provide you with a referral. We always advise you to contact your personal physician following an emergency department visit to inform them of the circumstance of the visit and for follow-up with them and/or the need for any referrals to a consulting specialist. The emergency department will also refer you to a specialist when appropriate. This referral assures that you have the opportunity for follow-up care with a specialist. All of these measure are taken in an effort to provide you with optimal care, which includes your follow-up. Under all circumstances we always encourage you to contact your private physician who remains a resource for coordinating your care. When calling for follow-up care, please make the office aware that this follow-up is from your recent emergency room visit. If for any reason you are refused follow-up, please contact the [facility] Emergency Department at and asked to speak to the emergency department charge nurse. Please follow up with your primary care physician. If you do not have a primary care physician, see below: [facility] [address], [place] [id number] [facility] [address] [place] [address] [facility] [address] [place] [address] Sepsis Event Note (ED) - Focused Exam Vital Signs: Vital Signs Temp Pulse Resp BP Pulse Ox 04/07/20 15:07 75 16 154/72 H 97 04/07/20 13:45 97.5 F 71 18 155/50 H 94 L - My Orders Last 24 Hours: My Active Orders 04/07/20 13:55 Cardiac Monitoring [RC] . DIRECTED EKG Documentation Completion [RC] STAT Pulse Oximetry [RC] ASDIRECTED Sodium Chloride 0.9% [Saline Flush] 10 ml FLUSH ASDIRECTED PRN Sodium Chloride 0.9% [Saline Flush] 2.5 ml FLUSH ASDIRECTED PRN Saline Lock Insert [OM.PC] Stat 04/07/20 14:09 RT Aerosol Therapy [RC] ASDIRECTED - Assessment/Plan Last 24 Hours: My Active Orders 04/07/20 13:55 Cardiac Monitoring [RC] . DIRECTED EKG Documentation Completion [RC] STAT Pulse Oximetry [RC] ASDIRECTED Sodium Chloride 0.9% [Saline Flush] 10 ml FLUSH ASDIRECTED PRN Sodium Chloride 0.9% [Saline Flush] 2.5 ml FLUSH ASDIRECTED PRN Saline Lock Insert [OM.PC] Stat 04/07/20 14:09 RT Aerosol Therapy [RC] ASDIRECTED
[2020-04-07] MEDS ORDERED: Sodium Chloride 0.9% 2.5 ML Syringe FLUSH PRN (13:55)
[2020-04-07] MEDS ORDERED: Sodium Chloride 0.9% 10 ML Syringe FLUSH PRN (13:55)
[2020-04-07] MEDS ORDERED: Albuterol/Ipratropium 3.0-0.5 MG/3 ML Neb Soln NEB ONE (14:09)
[2020-04-07 14:59] LABS: BLOOD UREA NITROGEN,BUN 15 mg/dL (7.0-18.0); CARBON DIOXIDE,CO2 28.9 mmol/L (21.0-32.0); CHLORIDE,CL 99 mmol/L (98-107); GLUCOSE RANDOM 150 mg/dL (74-106); POTASSIUM,K 3.9 mmol/L (3.5-5.1); SODIUM,NA 137 mmol/L (136-148)
--- NOTE | 2020-04-07 15:14 | CR ---
INDICATION: Chest pain. TECHNIQUE: Chest 1 view. COMPARISON: Chest radiograph 01/10/2020. FINDINGS: Resolution of the previously seen bilateral pulmonary opacities. No focal consolidation, pleural effusion, or pneumothorax. Stable cardiomegaly. Normal pulmonary vascularity. Cervical spine hardware. IMPRESSION: 1. No acute cardiopulmonary findings. 2. Resolution of the previously seen bilateral pulmonary opacities. Dictated by Shobha Mena MD @ Apr 07 2020 3:11PM Signed by Dr. Shobha Mena @ Apr 07 2020 3:14PM
[2020-04-07 15:25] VITALS: BP 143/63; PULSE 65
== END 2020-04-07 15:35 | disposition home or self-care (01) ==
LOC: MW.ED 13:38
DX: J01.80 Other acute sinusitis (principal); R07.9 Chest pain, unspecified; I25.10 Atherosclerotic heart disease of native coronary artery without angina pectoris; I10 Essential (primary) hypertension; I25.2 Old myocardial infarction; E11.9 Type 2 diabetes mellitus without complications; M19.90 Unspecified osteoarthritis, unspecified site; E78.5 Hyperlipidemia, unspecified; E66.01 Morbid (severe) obesity due to excess calories; Z86.16 Personal history of COVID-19; Z88.5 Allergy status to narcotic agent; Z91.048 Other nonmedicinal substance allergy status; Z79.899 Other long term (current) drug therapy; Z79.4 Long term (current) use of insulin; Z79.02 Long term (current) use of antithrombotics/antiplatelets
CPT/HCPCS: 36415; 71045; 71045-26; 80053; 82962; 83735; 83880; 84443; 84484; 85025; 85379; 85610; 85730; 93005; 94640; 99283; 99285-25; J7620-GY

== ENCOUNTER 2021-07-13 23:36 | Emergency (ER) | payer MEDICARE ==
[2021-07-14] MEDS ORDERED: Ketorolac 30 MG/ML SDV IM ONE (00:03)
[2021-07-14 01:37] VITALS: BP 143/72; PULSE 81
== END 2021-07-14 01:37 | disposition home or self-care (01) ==
LOC: MW.ED 23:36
DX: M54.2 Cervicalgia (principal); I25.10 Atherosclerotic heart disease of native coronary artery without angina pectoris; I10 Essential (primary) hypertension; E11.9 Type 2 diabetes mellitus without complications; I25.2 Old myocardial infarction; E66.9 Obesity, unspecified; Z68.42 Body mass index [BMI] 45.0-49.9, adult; Z95.5 Presence of coronary angioplasty implant and graft; Z88.5 Allergy status to narcotic agent; Z91.048 Other nonmedicinal substance allergy status; Z79.4 Long term (current) use of insulin; Z79.02 Long term (current) use of antithrombotics/antiplatelets; Z79.899 Other long term (current) drug therapy; Z86.16 Personal history of COVID-19
CPT/HCPCS: 72125; 72125-26; 96372; 99283-25; J1885

== ENCOUNTER 2021-07-22 10:45 | Emergency (ER) | payer MEDICARE ==
[2021-07-22] MEDS ORDERED: Aspirin 81 MG Tab.Chew PO ONE (10:55)
[2021-07-22] MEDS ORDERED: Morphine 4 MG/ML VIAL IVPUSH ONE ×2 (10:58→13:52)
[2021-07-22 11:32] LABS: BLOOD UREA NITROGEN,BUN 23 mg/dL (7.0-18.0); CARBON DIOXIDE,CO2 29.6 mmol/L (21.0-32.0); CHLORIDE,CL 96 mmol/L (98-107); GLUCOSE RANDOM 143 mg/dL (74-106); POTASSIUM,K 3.6 mmol/L (3.5-5.1); SODIUM,NA 135 mmol/L (136-148)
[2021-07-22] MEDS ORDERED: Iopamidol 755 MG/ML 500 ML Multipack Bottle IVPUSH STA (12:59)
[2021-07-22 14:33] VITALS: BP 156/85; PULSE 64
== END 2021-07-22 14:51 ==
LOC: MW.ED 10:45
DX: D69.6 Thrombocytopenia, unspecified (principal); I25.10 Atherosclerotic heart disease of native coronary artery without angina pectoris; I25.2 Old myocardial infarction; I10 Essential (primary) hypertension; E66.9 Obesity, unspecified; Z68.30 Body mass index [BMI] 30.0-30.9, adult; Z86.16 Personal history of COVID-19; Z79.899 Other long term (current) drug therapy; Z88.6 Allergy status to analgesic agent; Z91.09 Other allergy status, other than to drugs and biological substances; Z79.4 Long term (current) use of insulin; Z20.822 Contact with and (suspected) exposure to COVID-19
CPT/HCPCS: 36415; 71045; 71275; 80053; 83735; 84484; 85025; 85384; 85610; 85730; 93005; 96374; 96376; 99285; A9270; J2270; Q9967; U0002

== ENCOUNTER 2021-08-17 08:21 | Emergency (ER) | payer MEDICARE ==
[2021-08-17] MEDS ORDERED: Sodium Chloride 0.9% 10 ML Syringe FLUSH PRN (09:01)
[2021-08-17] MEDS ORDERED: Sodium Chloride 0.9% 2.5 ML Syringe FLUSH PRN (09:01)
[2021-08-17] MEDS ORDERED: Furosemide 40 MG/4 ML VIAL IVPUSH ONE (09:33)
[2021-08-17] MEDS ORDERED: Azithromycin 250 MG Tab PO ONE (09:33)
[2021-08-17] MEDS ORDERED: methylPREDNISolone Sodium Succinate 125 MG/2 ML SDV IVPUSH ONE (09:33)
[2021-08-17 09:41] LABS: CORONAVIRUS COVID-19 NAA NEGATIVE (NEGATIVE); INFLUENZA A NAA NEGATIVE (NEGATIVE); INFLUENZA B NAA NEGATIVE (NEGATIVE)
[2021-08-17 10:06] LABS: POTASSIUM,K 4.5 mmol/L (3.5-5.1)
[2021-08-17] MEDS ORDERED: Ketorolac 30 MG/ML SDV IVPUSH ONE (10:19)
[2021-08-17 11:28] VITALS: BP 145/57; PULSE 78
== END 2021-08-17 11:29 | disposition home or self-care (01) ==
LOC: MW.ED 08:21
DX: M79.89 Other specified soft tissue disorders (principal); I25.2 Old myocardial infarction; I10 Essential (primary) hypertension; E11.9 Type 2 diabetes mellitus without complications; E66.9 Obesity, unspecified; Z68.43 Body mass index [BMI] 50.0-59.9, adult; Z88.5 Allergy status to narcotic agent; Z79.4 Long term (current) use of insulin; Z79.899 Other long term (current) drug therapy
CPT/HCPCS: 0240U; 36415; 71045; 80053; 83880; 84484; 85025; 93005; 96374; 96375; 99284; A9270; J1885; J1940; J2930; J3490; 93010

== ENCOUNTER 2021-09-12 06:19 | Emergency (ER) | payer MEDICARE ==
[2021-09-12] MEDS ORDERED: Famotidine 20 MG/2 ML SDV IVPUSH ONE (06:26)
[2021-09-12] MEDS ORDERED: Alum Hydro/Mag Hydro/Simeth XS 15 ML, Lidocaine 2% 5 ML PO ONE ×2 (06:27)
[2021-09-12] MEDS ORDERED: Diltiazem 25 MG/5 ML SDV IVPUSH ONE (06:38)
[2021-09-12] MEDS ORDERED: Diltiazem IR 60 MG Tab PO ONE (06:58)
[2021-09-12 07:08] LABS: BLOOD UREA NITROGEN,BUN 32 mg/dL (7.0-18.0); CARBON DIOXIDE,CO2 26.8 mmol/L (21.0-32.0); CHLORIDE,CL 99 mmol/L (98-107); GLUCOSE RANDOM 228 mg/dL (74-106); LIPASE 74 U/L (73-393); POTASSIUM,K 3.4 mmol/L (3.5-5.1); SODIUM,NA 136 mmol/L (136-148)
[2021-09-12 07:09] LABS: ESTIMATED GFR 40 mL/min (>60)
[2021-09-12] MEDS ORDERED: Lactated Ringers 1,000 ML IV ONE (07:28)
[2021-09-12] MEDS ORDERED: Potassium Bicarbonate 25 MEQ Tab.EFF PO STA (07:28)
[2021-09-12] MEDS ORDERED: Magnesium Sulfate (4.06 MEQ/ML) 5 GM/10 ML SDV IV STA (07:29)
[2021-09-12] MEDS ORDERED: Ketorolac 30 MG/ML SDV IM ONE (07:44)
[2021-09-12] MEDS ORDERED: Magnesium Sulfate/Water 2 GM in Premix Bag 1 BAG IV ONE (07:45)
[2021-09-12] MEDS ORDERED: Potassium Chloride 20 MEQ Tab.ER PO ONE (08:32)
[2021-09-12] MEDS ORDERED: Aluminum Hydroxide/Magnesium Hydroxide/Simethicone XS Susp 30 ML Cup PO ONE (08:38)
[2021-09-12] MEDS ORDERED: Heparin Sodium/0.45% NaCl 500 ML IV SCH (09:45)
[2021-09-12] MEDS ORDERED: Heparin Sodium 5,000 Units/ML Vial IVPUSH ONE (11:30)
[2021-09-12 12:24] VITALS: BP 105/42; PULSE 100
== END 2021-09-12 12:41 ==
LOC: MW.ED 06:19
DX: I24.9 Acute ischemic heart disease, unspecified (principal); I25.10 Atherosclerotic heart disease of native coronary artery without angina pectoris; I10 Essential (primary) hypertension; E11.9 Type 2 diabetes mellitus without complications; I25.2 Old myocardial infarction; K21.9 Gastro-esophageal reflux disease without esophagitis; E66.01 Morbid (severe) obesity due to excess calories; Z88.5 Allergy status to narcotic agent; Z88.8 Allergy status to other drugs, medicaments and biological substances; Z79.4 Long term (current) use of insulin; Z79.899 Other long term (current) drug therapy; Z68.30 Body mass index [BMI] 30.0-30.9, adult; Z86.16 Personal history of COVID-19; Z20.822 Contact with and (suspected) exposure to COVID-19
CPT/HCPCS: 36415; 71045; 80053; 82947; 83690; 83735; 83880; 84443; 84484; 85025; 85610; 85730; 93005; 96365; 96366; 96367; 96372; 96375; 96376; 99285; A9270; J1644; J1885; J3475; J3490; J7120; U0002; 93010

== ENCOUNTER 2021-10-17 01:26 | Emergency (ER) | payer MEDICARE ==
[2021-10-17] MEDS ORDERED: Ketorolac 30 MG/ML SDV IM ONE (02:05)
[2021-10-17] MEDS ORDERED: predniSONE 10 MG Tab PO ONE (04:05)
[2021-10-17 04:46] VITALS: BP 133/68; PULSE 68
== END 2021-10-17 04:42 | disposition home or self-care (01) ==
LOC: MW.ED 01:26
DX: U07.1 COVID-19 (principal); I25.10 Atherosclerotic heart disease of native coronary artery without angina pectoris; I25.2 Old myocardial infarction; I11.0 Hypertensive heart disease with heart failure; I50.9 Heart failure, unspecified; E11.9 Type 2 diabetes mellitus without complications; I48.91 Unspecified atrial fibrillation; E66.01 Morbid (severe) obesity due to excess calories; Z95.5 Presence of coronary angioplasty implant and graft; Z68.30 Body mass index [BMI] 30.0-30.9, adult; Z88.5 Allergy status to narcotic agent; Z91.048 Other nonmedicinal substance allergy status; Z79.899 Other long term (current) drug therapy; Z79.4 Long term (current) use of insulin
CPT/HCPCS: 71046; 96372; 99283; A9270; J1885; U0002; 99284

== ENCOUNTER 2021-11-28 21:00 | Emergency (ER) | payer MEDICARE ==
[~2021-11-28 21:00] MED LIST: Ketorolac 60 MG/2 ML SDV IM ONE
== END 2021-11-28 21:50 | disposition home or self-care (01) ==
LOC: MW.ED 21:00
DX: M79.10 Myalgia, unspecified site (principal)
CPT/HCPCS: 96372; 99283

== ENCOUNTER 2022-02-05 14:35 | Emergency (ER) | payer MEDICARE ==
[2022-02-05] MEDS ORDERED: Sodium Chloride 0.9% 10 ML Syringe FLUSH PRN (19:25)
[2022-02-05] MEDS ORDERED: Sodium Chloride 0.9% 2.5 ML Syringe FLUSH PRN (19:25)
[2022-02-05] MEDS ORDERED: Meclizine 25 MG Tab PO ONE (19:27)
[2022-02-05] MEDS ORDERED: Sodium Chloride 0.9% 500 ML IV SCH (19:30)
[2022-02-05 20:13] LABS: BLOOD UREA NITROGEN,BUN 23 mg/dL (7.0-18.0); CARBON DIOXIDE,CO2 32.6 mmol/L (21.0-32.0); CHLORIDE,CL 101 mmol/L (98-107); GLUCOSE RANDOM 158 mg/dL (74-106); LIPASE 67 U/L (73-393); SODIUM,NA 139 mmol/L (136-148)
[2022-02-05 20:28] LABS: ESTIMATED GFR 71 mL/min (>60)
[2022-02-05 21:53] LABS: CORONAVIRUS COVID-19 NAA NEGATIVE (NEGATIVE); INFLUENZA A NAA NEGATIVE (NEGATIVE); INFLUENZA B NAA NEGATIVE (NEGATIVE); RESPIRATORY SYNCYTIAL VIR NAA NEGATIVE (NEGATIVE)
[2022-02-05 22:16] VITALS: BP 160/65; PULSE 60
== END 2022-02-05 22:15 | disposition home or self-care (01) ==
LOC: MW.ED 14:35
DX: R42 Dizziness and giddiness (principal); I25.10 Atherosclerotic heart disease of native coronary artery without angina pectoris; I10 Essential (primary) hypertension; I25.2 Old myocardial infarction; E11.9 Type 2 diabetes mellitus without complications; E66.9 Obesity, unspecified; Z68.42 Body mass index [BMI] 45.0-49.9, adult; Z88.6 Allergy status to analgesic agent; Z91.048 Other nonmedicinal substance allergy status; Z79.899 Other long term (current) drug therapy; Z79.4 Long term (current) use of insulin; Z20.822 Contact with and (suspected) exposure to COVID-19
CPT/HCPCS: 0241U; 36415; 70450; 71045; 80053; 80307; 83605; 83690; 84484; 85025; 85610; 87040; 96360; 99284; A9270; J7040

== ENCOUNTER 2022-03-02 13:08 | Emergency (ER) | payer MEDICARE ==
[2022-03-02] MEDS ORDERED: Sodium Chloride 0.9% 1,000 ML IV ONE ×2 (13:26→18:27)
[2022-03-02] MEDS ORDERED: Aspirin 81 MG Tab.Chew PO ONE (13:32)
[2022-03-02] MEDS ORDERED: Alum Hydro/Mag Hydro/Simeth XS 15 ML, Metoclopramide 5 MG, Lidocaine 2% 5 ML PO ONE ×3 (13:46)
[2022-03-02 14:15] LABS: CARBON DIOXIDE,CO2 22.5 mmol/L (21.0-32.0); POTASSIUM,K 3.2 mmol/L (3.5-5.1)
[2022-03-02 14:41] LABS: CORONAVIRUS COVID-19 NAA NEGATIVE (NEGATIVE); INFLUENZA A NAA NEGATIVE (NEGATIVE); INFLUENZA B NAA NEGATIVE (NEGATIVE); RESPIRATORY SYNCYTIAL VIR NAA NEGATIVE (NEGATIVE)
[2022-03-02] MEDS ORDERED: Magnesium Sulfate/Water 2 GM in Premix Bag 1 BAG IV ONE (14:56)
[2022-03-02] MEDS ORDERED: Iopamidol 755 MG/ML 500 ML Multipack Bottle IVPUSH STA (15:25)
[2022-03-02] MEDS ORDERED: Potassium Chloride 20 MEQ in Premix Bag 1 BAG IV ONE (15:30)
[2022-03-02] MEDS ORDERED: Sodium Chloride 0.9% 250 ML IV ONE (15:45)
[2022-03-02] MEDS ORDERED: Heparin Sodium 5,000 Units/ML Vial IVPUSH ONE (18:58)
[2022-03-02] MEDS ORDERED: Heparin Sodium/0.45% NaCl 500 ML IV SCH (19:00)
[2022-03-02 22:54] VITALS: BP 144/56; PULSE 62
== END 2022-03-02 21:20 ==
LOC: MW.ED 13:08
DX: I21.4 Non-ST elevation (NSTEMI) myocardial infarction (principal); E87.6 Hypokalemia; R74.02 Elevation of levels of lactic acid dehydrogenase [LDH]; I25.10 Atherosclerotic heart disease of native coronary artery without angina pectoris; I10 Essential (primary) hypertension; I25.2 Old myocardial infarction; E11.9 Type 2 diabetes mellitus without complications; E66.9 Obesity, unspecified; Z68.42 Body mass index [BMI] 45.0-49.9, adult; Z88.6 Allergy status to analgesic agent; Z91.048 Other nonmedicinal substance allergy status; Z79.899 Other long term (current) drug therapy; Z79.4 Long term (current) use of insulin; Z86.16 Personal history of COVID-19; Z20.822 Contact with and (suspected) exposure to COVID-19
CPT/HCPCS: 0241U; 36415; 71275; 80053; 83605; 83690; 83735; 83880; 84484; 85025; 85610; 87040; 87077; 87154; 87186; 93005; 96361; 96365; 96366; 96367; 96368; 99285; A9270; J1644; J3475; J3480; J7030; J7050; Q9967; 93010

== ENCOUNTER 2023-10-01 16:38 | Observation (INO) | payer MEDICARE ==
[2023-10-01 17:43] LABS: BASOPHILS ABSOLUTE AUTO 0.04 K/uL (0.00-0.20); BASOPHILS PERCENT AUTO 0.4 % (0.0-1.0); EOSINOPHILS ABSOLUTE AUTO 0.22 K/uL (0.00-0.45); EOSINOPHILS PERCENT AUTO 2.1 % (0.0-6.0); HEMATOCRIT 46.1 % (42.0-52.0); HEMOGLOBIN 15.7 g/dL (14.0-18.0); IMMATURE GRAN ABSOLUTE AUTO 0.03 K/uL (0.00-0.05); IMMATURE GRAN PERCENT AUTO 0.3 % (0.0-0.4); LYMPHOCYTES ABSOLUTE AUTO 1.62 K/uL (1.00-4.80); LYMPHOCYTES PERCENT AUTO 15.7 % (24.0-44.0); MEAN CORPUSCULAR HGB CONC 34.1 g/dL (32.0-36.0); MEAN CORPUSCULAR VOLUME 85.1 fL (83.0-99.0); MEAN PLATELET VOLUME 9.4 fL (9.4-12.4); MONOCYTES ABSOLUTE AUTO 1.09 K/uL (0.00-0.80); MONOCYTES PERCENT AUTO 10.6 % (0.0-8.0); NEUTROPHILS ABSOLUTE AUTO 7.31 K/uL (1.80-7.70); NEUTROPHILS PERCENT AUTO 70.9 % (41.0-71.0); PLATELET COUNT,PLT 162 K/uL (150-400); RED BLOOD CELL COUNT 5.42 M/uL (4.52-5.90); WHITE BLOOD CELL COUNT,WBC 10.31 K/uL (3.9-11.3)
[2023-10-01] MEDS: Sodium Chloride 0.9% 1,000 ML IV ONE (18:01)
[2023-10-01] MEDS: Sodium Chloride 0.9% 10 ML Syringe FLUSH PRN (18:02)
[2023-10-01] MEDS: Sodium Chloride 0.9% 2.5 ML Syringe FLUSH PRN (18:02)
[2023-10-01 18:24] LABS: A/G RATIO 0.8 (0.9-1.6); ALANINE AMINOTRANSFERASE,ALT 20 IU/L (14-63); ALKALINE PHOSPHATASE 126 U/L (46-116); ASPARTATE AMNIOTRANSFERASE,AST 17 IU/L (15-37); BILIRUBIN TOTAL 1.3 mg/dL (0.2-1.0); BLOOD UREA NITROGEN,BUN 23 mg/dL (7.0-18.0); CALCIUM 8.8 mg/dL (8.5-10.1); CARBON DIOXIDE,CO2 29.2 mmol/L (21.0-32.0); CHLORIDE,CL 104 mmol/L (98-107); CREATININE 1.4 mg/dL (0.8-1.3); GLUCOSE RANDOM 127 mg/dL (74-106); MAGNESIUM 1.6 mg/dL (1.8-2.4); POTASSIUM,K 3.7 mmol/L (3.5-5.1); PRO B-TYPE NATRIUR PEPT,BNPPRO 1007 pg/mL (0-125); PROTEIN TOTAL,TP 6.7 g/dL (6.4-8.2); SODIUM,NA 143 mmol/L (136-148)
[2023-10-01 18:32] LABS: ESTIMATED GFR 53 mL/min (>60)
[2023-10-01 18:38] LABS: LACTIC ACID 2.1 mmol/L (0.4-2.0)
[2023-10-01] MEDS ORDERED: Melatonin 3 MG Tab PO PRN (19:20)
[2023-10-01] MEDS ORDERED: Polyethylene Glycol 3350 Powder 17 GM Packet PO PRN (19:20)
[2023-10-01] MEDS ORDERED: Ondansetron 4 MG/2 ML SDV IVPUSH PRN (19:20)
[2023-10-01] MEDS ORDERED: 50% Dextrose in Water 50 ML Syringe IVPUSH PRN (19:24)
[2023-10-01] MEDS ORDERED: Glucagon,Human Recombinant 1 MG Vial IM PRN (19:24)
[2023-10-01] MEDS: Magnesium Oxide 400 MG Tab PO ONE (22:27)
[2023-10-01] MEDS: Potassium Chloride 20 MEQ Tab.ER PO ONE (22:27)
[2023-10-01] MEDS: Nystatin Topical Powder 15 GM Bottle TOP SCH (22:28)
[2023-10-01] MEDS: Insulin Aspart 100 Units/ML 3 ML Pen SUBCUT SCH (22:33)
[2023-10-02] MEDS: Sodium Chloride 0.9% 1,000 ML IV SCH (02:07)
[2023-10-02] MEDS: Acetaminophen 325 MG Tab PO PRN (02:09)
[2023-10-02] MEDS ORDERED: Ketorolac 30 MG/ML SDV IVPUSH PRN (02:13)
[2023-10-02 05:57] LABS: APPEARANCE,URINE CLEAR; BILIRUBIN,URINE NEGATIVE (NEGATIVE); COLOR,URINE YELLOW; GLUCOSE,URINE NEGATIVE (NEGATIVE); KETONES,URINE NEGATIVE (NEGATIVE); LEUKOCYTE ESTERASE,URINE NEGATIVE (NEGATIVE); NITRITE,URINE POSITIVE (NEGATIVE); OCCULT BLOOD,URINE NEGATIVE (NEGATIVE); PROTEIN,URINE TRACE mg/dL (NEGATIVE); UROBILINOGEN,URINE 0.2 EU/dL (<2.0)
[2023-10-02 06:31] LABS: HEMATOCRIT 45.4 % (42.0-52.0); HEMOGLOBIN 15.4 g/dL (14.0-18.0); MEAN CORPUSCULAR HEMOGLOBIN 28.5 pg (28.0-32.0); MEAN CORPUSCULAR HGB CONC 33.9 g/dL (32.0-36.0); MEAN CORPUSCULAR VOLUME 83.9 fL (83.0-99.0); MEAN PLATELET VOLUME 9.7 fL (9.4-12.4); PLATELET COUNT,PLT 149 K/uL (150-400); RED BLOOD CELL COUNT 5.41 M/uL (4.52-5.90); WHITE BLOOD CELL COUNT,WBC 9.42 K/uL (3.9-11.3)
[2023-10-02 06:37] LABS: EPITHELIAL CELLS,URINE FEW (NONE-FEW); RBC,URINE 0-1 (0-2/HPF); WBC,URINE 0-3 (0-5/HPF)
[2023-10-02 06:39] LABS: BACTERIA,URINE 1+ (NEGATIVE)
[2023-10-02 06:51] LABS: CALCIUM 8.5 mg/dL (8.5-10.1); CARBON DIOXIDE,CO2 28.8 mmol/L (21.0-32.0); EST CRCL DRUG DOSING (CG) 66.92 mL/min; MAGNESIUM 1.6 mg/dL (1.8-2.4); POTASSIUM,K 3.7 mmol/L (3.5-5.1)
[2023-10-02] MEDS: Magnesium Sulfate/Water 2 GM in Premix Bag 1 BAG IV ONE (08:34)
[2023-10-02] MEDS: Metoprolol Succinate 100 MG Tab.ER PO SCH (08:35)
[2023-10-02 13:47] VITALS: BP 156/73; PULSE 64
== END 2023-10-02 11:30 | disposition home or self-care (01) ==
LOC: MW.ED 16:38 → MW.MS 18:59
PROVIDERS: ADMIT Family Medicine; ATTEND Family Medicine
DX: E86.1 Hypovolemia (principal); I95.9 Hypotension, unspecified; I13.0 Hypertensive heart and chronic kidney disease with heart failure and stage 1 through stage 4 chronic kidney disease, or unspecified chronic kidney disease; E11.22 Type 2 diabetes mellitus with diabetic chronic kidney disease; I50.9 Heart failure, unspecified; E11.65 Type 2 diabetes mellitus with hyperglycemia; N18.9 Chronic kidney disease, unspecified; I25.10 Atherosclerotic heart disease of native coronary artery without angina pectoris; Z79.4 Long term (current) use of insulin; Z79.899 Other long term (current) drug therapy; Z88.5 Allergy status to narcotic agent
CPT/HCPCS: 36415; 71045; 80048; 80053; 81001; 82947; 83605; 83735; 83880; 84484; 85025; 85027; 87040; 93005; 96361; 96374; 99285; A9270; G0378; J3475; J3490; J7030; 93010; 96360; 99222; 99239; 99284

== ENCOUNTER 2024-02-16 17:34 | Emergency (ER) | payer MEDICARE ==
[2024-02-16] MEDS ORDERED: Ketorolac 60 MG/2 ML SDV IM ONE (18:14)
[2024-02-16] MEDS: Ketorolac 30 MG/ML SDV IM ONE (18:24)
[2024-02-16 18:28] LABS: BASOPHILS ABSOLUTE AUTO 0.02 K/uL (0.00-0.20); BASOPHILS PERCENT AUTO 0.3 % (0.0-1.0); EOSINOPHILS ABSOLUTE AUTO 0.08 K/uL (0.00-0.45); EOSINOPHILS PERCENT AUTO 1.3 % (0.0-6.0); HEMATOCRIT 40.8 % (42.0-52.0); HEMOGLOBIN 13.9 g/dL (14.0-18.0); IMMATURE GRAN ABSOLUTE AUTO 0.01 K/uL (0.00-0.05); IMMATURE GRAN PERCENT AUTO 0.2 % (0.0-0.4); LYMPHOCYTES ABSOLUTE AUTO 0.94 K/uL (1.00-4.80); LYMPHOCYTES PERCENT AUTO 15.7 % (24.0-44.0); MEAN CORPUSCULAR HEMOGLOBIN 29.6 pg (28.0-32.0); MEAN CORPUSCULAR HGB CONC 34.1 g/dL (32.0-36.0); MEAN CORPUSCULAR VOLUME 86.8 fL (83.0-99.0); MONOCYTES PERCENT AUTO 8.4 % (0.0-8.0); NEUTROPHILS ABSOLUTE AUTO 4.43 K/uL (1.80-7.70); NEUTROPHILS PERCENT AUTO 74.1 % (41.0-71.0); PLATELET COUNT,PLT 165 K/uL (150-400); WHITE BLOOD CELL COUNT,WBC 5.98 K/uL (3.9-11.3)
[2024-02-16 18:58] LABS: A/G RATIO 0.8 (0.9-1.6); ALANINE AMINOTRANSFERASE,ALT 17 IU/L (14-63); ALBUMIN 3.1 g/dL (3.4-5.0); ALKALINE PHOSPHATASE 112 U/L (46-116); ASPARTATE AMNIOTRANSFERASE,AST 32 IU/L (15-37); BILIRUBIN TOTAL 1.5 mg/dL (0.2-1.0); BLOOD UREA NITROGEN,BUN 17 mg/dL (7.0-18.0); CALCIUM 8.8 mg/dL (8.5-10.1); CARBON DIOXIDE,CO2 33.4 mmol/L (21.0-32.0); CHLORIDE,CL 97 mmol/L (98-107); CREATININE 1.6 mg/dL (0.8-1.3); GLUCOSE RANDOM 92 mg/dL (74-106); LIPASE 14 U/L (16-77); POTASSIUM,K 3.4 mmol/L (3.5-5.1); PROTEIN TOTAL,TP 6.9 g/dL (6.4-8.2); SODIUM,NA 135 mmol/L (136-148)
[2024-02-16 19:01] LABS: ESTIMATED GFR 45 mL/min (>60)
[2024-02-16 20:57] VITALS: BP 148/79; PULSE 61
== END 2024-02-16 20:58 | disposition home or self-care (01) ==
LOC: MW.ED 17:34
DX: J32.9 Chronic sinusitis, unspecified (principal); R10.11 Right upper quadrant pain; I25.10 Atherosclerotic heart disease of native coronary artery without angina pectoris; I25.2 Old myocardial infarction; I10 Essential (primary) hypertension; E11.9 Type 2 diabetes mellitus without complications; E66.9 Obesity, unspecified; Z96.659 Presence of unspecified artificial knee joint; Z88.5 Allergy status to narcotic agent; Z91.048 Other nonmedicinal substance allergy status; Z79.4 Long term (current) use of insulin; Z79.899 Other long term (current) drug therapy; Z75.8 Other problems related to medical facilities and other health care
CPT/HCPCS: 36415; 76705; 80053; 83690; 84484; 85025; 93005; 96372; 99284; J1885

== ENCOUNTER 2024-02-18 21:09 | Emergency (ER) | payer MEDICARE ==
[2024-02-19] MEDS: Ketorolac 30 MG/ML SDV IVPUSH ONE (00:35)
[2024-02-19 00:46] VITALS: BP 120/65; PULSE 92
== END 2024-02-19 00:46 | disposition home or self-care (01) ==
LOC: MW.ED 21:09
DX: M17.12 Unilateral primary osteoarthritis, left knee (principal); I10 Essential (primary) hypertension; E11.9 Type 2 diabetes mellitus without complications; E78.00 Pure hypercholesterolemia, unspecified; I25.10 Atherosclerotic heart disease of native coronary artery without angina pectoris; I25.2 Old myocardial infarction; E66.9 Obesity, unspecified; Z95.5 Presence of coronary angioplasty implant and graft; Z79.4 Long term (current) use of insulin; Z79.899 Other long term (current) drug therapy; Z88.5 Allergy status to narcotic agent; Z91.048 Other nonmedicinal substance allergy status
CPT/HCPCS: 73502; 73562; 96372; 99283; J1885

== ENCOUNTER 2024-03-05 22:10 | Emergency (ER) | payer MEDICARE ==
[2024-03-05 22:46] LABS: BASOPHILS ABSOLUTE AUTO 0.02 K/uL (0.00-0.20); BASOPHILS PERCENT AUTO 0.3 % (0.0-1.0); EOSINOPHILS ABSOLUTE AUTO 0.25 K/uL (0.00-0.45); HEMATOCRIT 40.9 % (42.0-52.0); HEMOGLOBIN 13.7 g/dL (14.0-18.0); IMMATURE GRAN ABSOLUTE AUTO 0.02 K/uL (0.00-0.05); IMMATURE GRAN PERCENT AUTO 0.3 % (0.0-0.4); LYMPHOCYTES ABSOLUTE AUTO 1.37 K/uL (1.00-4.80); LYMPHOCYTES PERCENT AUTO 21.7 % (24.0-44.0); MEAN CORPUSCULAR HEMOGLOBIN 29.6 pg (28.0-32.0); MEAN CORPUSCULAR HGB CONC 33.5 g/dL (32.0-36.0); MEAN CORPUSCULAR VOLUME 88.3 fL (83.0-99.0); MEAN PLATELET VOLUME 9.6 fL (9.4-12.4); MONOCYTES PERCENT AUTO 12.7 % (0.0-8.0); NEUTROPHILS ABSOLUTE AUTO 3.85 K/uL (1.80-7.70); PLATELET COUNT,PLT 154 K/uL (150-400); RED BLOOD CELL COUNT 4.63 M/uL (4.52-5.90); WHITE BLOOD CELL COUNT,WBC 6.31 K/uL (3.9-11.3)
[2024-03-05 23:04] LABS: CALCIUM 9.1 mg/dL (8.5-10.1); CARBON DIOXIDE,CO2 29.3 mmol/L (21.0-32.0); CREATININE 1.1 mg/dL (0.8-1.3); EST CRCL DRUG DOSING (CG) 60.83 mL/min; POTASSIUM,K 3.5 mmol/L (3.5-5.1)
[2024-03-05] MEDS: Cephalexin 500 MG Cap PO ONE (23:29)
[2024-03-05] MEDS: Doxycycline 100 MG Cap PO ONE (23:29)
[2024-03-05 23:51] VITALS: BP 152/62; PULSE 80
== END 2024-03-05 23:51 | disposition home or self-care (01) ==
LOC: MW.ED 22:10
DX: L03.115 Cellulitis of right lower limb (principal); I25.2 Old myocardial infarction; I10 Essential (primary) hypertension; I25.10 Atherosclerotic heart disease of native coronary artery without angina pectoris; E11.9 Type 2 diabetes mellitus without complications; E66.9 Obesity, unspecified; Z68.42 Body mass index [BMI] 45.0-49.9, adult; Z90.89 Acquired absence of other organs; Z96.659 Presence of unspecified artificial knee joint; Z88.5 Allergy status to narcotic agent; Z91.048 Other nonmedicinal substance allergy status; Z79.4 Long term (current) use of insulin; Z79.899 Other long term (current) drug therapy
CPT/HCPCS: 36415; 80048; 85025; 99283; A9270

== ENCOUNTER 2024-03-15 21:51 | Emergency (ER) | payer MEDICARE ==
[2024-03-15 23:55] LABS: APPEARANCE,URINE SLT CLOUDY; BILIRUBIN,URINE MODERATE (NEGATIVE); COLOR,URINE YELLOW; GLUCOSE,URINE NEGATIVE (NEGATIVE); KETONES,URINE TRACE mg/dL (NEGATIVE); LEUKOCYTE ESTERASE,URINE NEGATIVE (NEGATIVE); NITRITE,URINE POSITIVE (NEGATIVE); OCCULT BLOOD,URINE NEGATIVE (NEGATIVE); PH,URINE 5.5 (5.0-8.0); PROTEIN,URINE TRACE mg/dL (NEGATIVE)
[2024-03-16 00:05] LABS: BACTERIA,URINE RARE (NEGATIVE); EPITHELIAL CELLS,URINE FEW (NONE-FEW); RBC,URINE 0-2 (0-2/HPF); WBC,URINE 0-2 (0-5/HPF); YEAST,URINE RARE
[2024-03-16] MEDS ORDERED: Sodium Chloride 0.9% 10 ML Syringe FLUSH PRN (01:48)
[2024-03-16] MEDS ORDERED: Sodium Chloride 0.9% 2.5 ML Syringe FLUSH PRN (01:48)
[2024-03-16] MEDS ORDERED: Naloxone 0.4 MG/ML SDV IVPUSH PRN (02:03)
[2024-03-16 02:11] LABS: BASOPHILS ABSOLUTE AUTO 0.02 K/uL (0.00-0.20); BASOPHILS PERCENT AUTO 0.4 % (0.0-1.0); EOSINOPHILS PERCENT AUTO 7.4 % (0.0-6.0); IMMATURE GRAN ABSOLUTE AUTO 0.01 K/uL (0.00-0.05); IMMATURE GRAN PERCENT AUTO 0.2 % (0.0-0.4); LYMPHOCYTES ABSOLUTE AUTO 1.37 K/uL (1.00-4.80); LYMPHOCYTES PERCENT AUTO 25.2 % (24.0-44.0); MEAN CORPUSCULAR HEMOGLOBIN 29.5 pg (28.0-32.0); MEAN CORPUSCULAR HGB CONC 33.3 g/dL (32.0-36.0); MEAN CORPUSCULAR VOLUME 88.4 fL (83.0-99.0); MEAN PLATELET VOLUME 9.6 fL (9.4-12.4); MONOCYTES ABSOLUTE AUTO 0.87 K/uL (0.00-0.80); NEUTROPHILS ABSOLUTE AUTO 2.76 K/uL (1.80-7.70); NEUTROPHILS PERCENT AUTO 50.8 % (41.0-71.0); PLATELET COUNT,PLT 160 K/uL (150-400); RED BLOOD CELL COUNT 4.75 M/uL (4.52-5.90); WHITE BLOOD CELL COUNT,WBC 5.43 K/uL (3.9-11.3)
[2024-03-16] MEDS: HYDROmorphone 0.5 MG/0.5 ML Syringe IVPUSH ONE (02:22)
[2024-03-16] MEDS: Ondansetron 4 MG/2 ML SDV IVPUSH ONE (02:22)
[2024-03-16] MEDS: Lactated Ringers 1,000 ML IV ONE (02:22)
[2024-03-16 02:24] LABS: INR 1.27 (0.86-1.11)
[2024-03-16 02:36] LABS: A/G RATIO 0.8 (0.9-1.6); ALBUMIN 2.9 g/dL (3.4-5.0); BILIRUBIN TOTAL 1.9 mg/dL (0.2-1.0); CALCIUM 8.5 mg/dL (8.5-10.1); CARBON DIOXIDE,CO2 26.3 mmol/L (21.0-32.0); CREATININE 1.5 mg/dL (0.8-1.3); EST CRCL DRUG DOSING (CG) 44.61 mL/min; POTASSIUM,K 4.3 mmol/L (3.5-5.1); PROTEIN TOTAL,TP 6.6 g/dL (6.4-8.2)
[2024-03-16 05:50] VITALS: BP 151/94; PULSE 75
== END 2024-03-16 05:40 | disposition home or self-care (01) ==
LOC: MW.ED 21:51
DX: R10.11 Right upper quadrant pain (principal); I10 Essential (primary) hypertension; I25.2 Old myocardial infarction; I25.10 Atherosclerotic heart disease of native coronary artery without angina pectoris; E66.9 Obesity, unspecified; E11.9 Type 2 diabetes mellitus without complications; Z88.5 Allergy status to narcotic agent; Z91.048 Other nonmedicinal substance allergy status; Z79.4 Long term (current) use of insulin; Z79.899 Other long term (current) drug therapy; Z68.41 Body mass index [BMI] 40.0-44.9, adult
CPT/HCPCS: 36415; 71045; 76705; 80053; 81001; 83690; 84484; 85025; 85610; 87086; 96361; 96374; 96375; 99284; J2405; J7120

== ENCOUNTER 2024-03-21 20:18 | Inpatient (IN) | payer MEDICARE ==
[2024-03-21] MEDS ORDERED: Sodium Chloride 0.9% 10 ML Syringe FLUSH PRN (22:12)
[2024-03-21] MEDS ORDERED: Sodium Chloride 0.9% 2.5 ML Syringe FLUSH PRN (22:12)
[2024-03-21] MEDS ORDERED: Sodium Chloride 0.9% 20 ML SDV IV PRN (22:12)
[2024-03-21 22:50] LABS: BASOPHILS ABSOLUTE AUTO 0.02 K/uL (0.00-0.20); BASOPHILS PERCENT AUTO 0.4 % (0.0-1.0); EOSINOPHILS ABSOLUTE AUTO 0.35 K/uL (0.00-0.45); EOSINOPHILS PERCENT AUTO 6.9 % (0.0-6.0); HEMATOCRIT 39.6 % (42.0-52.0); HEMOGLOBIN 13.4 g/dL (14.0-18.0); IMMATURE GRAN ABSOLUTE AUTO 0.02 K/uL (0.00-0.05); IMMATURE GRAN PERCENT AUTO 0.4 % (0.0-0.4); LYMPHOCYTES ABSOLUTE AUTO 1.28 K/uL (1.00-4.80); LYMPHOCYTES PERCENT AUTO 25.3 % (24.0-44.0); MEAN CORPUSCULAR HGB CONC 33.8 g/dL (32.0-36.0); MEAN CORPUSCULAR VOLUME 88.6 fL (83.0-99.0); MEAN PLATELET VOLUME 9.4 fL (9.4-12.4); MONOCYTES PERCENT AUTO 17.8 % (0.0-8.0); NEUTROPHILS ABSOLUTE AUTO 2.48 K/uL (1.80-7.70); NEUTROPHILS PERCENT AUTO 49.2 % (41.0-71.0); PLATELET COUNT,PLT 147 K/uL (150-400); RED BLOOD CELL COUNT 4.47 M/uL (4.52-5.90); WHITE BLOOD CELL COUNT,WBC 5.05 K/uL (3.9-11.3)
[2024-03-21 22:54] LABS: PH,VENOUS 7.25 (7.31-7.41)
[2024-03-21 23:23] LABS: A/G RATIO 0.8 (0.9-1.6); ALBUMIN 2.7 g/dL (3.4-5.0); BILIRUBIN TOTAL 2.5 mg/dL (0.2-1.0); CALCIUM 8.9 mg/dL (8.5-10.1); CARBON DIOXIDE,CO2 25.7 mmol/L (21.0-32.0); CREATININE 2.7 mg/dL (0.8-1.3); EST CRCL DRUG DOSING (CG) 24.78 mL/min; MAGNESIUM 1.8 mg/dL (1.8-2.4); PROTEIN TOTAL,TP 6.3 g/dL (6.4-8.2)
[2024-03-22] MEDS ORDERED: Sodium Chloride 0.9% 2.5 ML Syringe FLUSH PRN (00:05)
[2024-03-22] MEDS ORDERED: Sodium Chloride 0.9% 10 ML Syringe FLUSH PRN (00:05)
[2024-03-22] MEDS ORDERED: Sodium Chloride 0.9% 20 ML SDV IV PRN (00:05)
[2024-03-22] MEDS: Sodium Chloride 0.9% 1,000 ML IV SCH ×2 (02:44→08:03)
[2024-03-22] MEDS: Metoclopramide 10 MG/2 ML SDV IV ONE (02:49)
[2024-03-22] MEDS ORDERED: Metoclopramide 5 MG Tab PO PRN (08:15)
[2024-03-22] MEDS ORDERED: Melatonin 3 MG Tab PO PRN (08:15)
[2024-03-22] MEDS ORDERED: Sennosides/Docusate Sodium 50-8.6 MG Tab PO PRN (08:15)
[2024-03-22] MEDS ORDERED: Albuterol/Ipratropium 3.0-0.5 MG/3 ML Neb Soln NEB PRN (08:15)
[2024-03-22] MEDS ORDERED: Polyethylene Glycol 3350 Powder 17 GM Packet PO PRN (08:15)
[2024-03-22] MEDS ORDERED: Ondansetron 4 MG Tab.DIS PO PRN (08:15)
[2024-03-22] MEDS ORDERED: Ketorolac 10 MG Tab PO PRN (08:18)
[2024-03-22] MEDS ORDERED: QUINAPRIL 40 MG PO SCH (09:00)
[2024-03-22] MEDS: Insulin Glargine,Hum.Rec.Anlog 100 UNIT/ML 3 ML Pen SUBCUT SCH (09:10)
[2024-03-22] MEDS: Carvedilol 25 MG Tab PO SCH (09:29)
[2024-03-22] MEDS: Clopidogrel 75 MG Tab PO SCH (09:29)
[2024-03-22] MEDS: Sodium Chloride 0.9% 1,000 ML IV ONE (09:51)
[2024-03-22] MEDS: Heparin Sodium 5,000 Units/ML Vial SUBCUT SCH (09:58)
[2024-03-22 10:30] LABS: APPEARANCE,URINE SLT CLOUDY; COLOR,URINE DARK YELLOW
[2024-03-22 10:31] LABS: BILIRUBIN,URINE LARGE (NEGATIVE); GLUCOSE,URINE NEGATIVE (NEGATIVE); KETONES,URINE TRACE mg/dL (NEGATIVE); LEUKOCYTE ESTERASE,URINE TRACE (NEGATIVE); NITRITE,URINE NEGATIVE (NEGATIVE); OCCULT BLOOD,URINE TRACE-INTACT (NEGATIVE); PROTEIN,URINE TRACE mg/dL (NEGATIVE)
[2024-03-22 10:32] LABS: EPITHELIAL CELLS,URINE MODERATE (NONE-FEW)
[2024-03-22 10:33] LABS: BACTERIA,URINE 1+ (NEGATIVE); CALCIUM OXALATE CRYSTALS,URINE MODERATE (NEGATIVE); MUCUS,URINE LIGHT (NONE-MOD)
[2024-03-22] MEDS: Sennosides/Docusate Sodium 50-8.6 MG Tab PO SCH (12:37)
[2024-03-22] MEDS: Polyethylene Glycol 3350 Powder 17 GM Packet PO SCH (15:39)
[2024-03-22] MEDS: cefTRIAXone 2 GM in Sodium Chloride 0.9% 100 ML IV SCH (15:40)
[2024-03-22 16:08] LABS: CALCIUM 8.1 mg/dL (8.5-10.1); CARBON DIOXIDE,CO2 26.5 mmol/L (21.0-32.0); CREATININE 2.8 mg/dL (0.8-1.3); EST CRCL DRUG DOSING (CG) 23.9 mL/min; POTASSIUM,K 4.1 mmol/L (3.5-5.1)
[2024-03-22] MEDS: Midodrine 5 MG Tab PO SCH (16:29)
[2024-03-22] MEDS ORDERED: Glucagon,Human Recombinant 1 MG Vial IM PRN (17:42)
[2024-03-22] MEDS ORDERED: 50% Dextrose in Water 50 ML Syringe IVPUSH PRN (17:42)
[2024-03-22] MEDS: Sodium Chloride 0.9% 500 ML IV SCH (19:04)
[2024-03-22] MEDS: HYDROmorphone 2 MG Tab PO PRN (20:22)
[2024-03-23 06:19] LABS: BASOPHILS ABSOLUTE AUTO 0.01 K/uL (0.00-0.20); BASOPHILS PERCENT AUTO 0.2 % (0.0-1.0); EOSINOPHILS ABSOLUTE AUTO 0.24 K/uL (0.00-0.45); EOSINOPHILS PERCENT AUTO 4.4 % (0.0-6.0); HEMATOCRIT 39.9 % (42.0-52.0); HEMOGLOBIN 13.4 g/dL (14.0-18.0); IMMATURE GRAN ABSOLUTE AUTO 0.02 K/uL (0.00-0.05); IMMATURE GRAN PERCENT AUTO 0.4 % (0.0-0.4); LYMPHOCYTES ABSOLUTE AUTO 1.31 K/uL (1.00-4.80); LYMPHOCYTES PERCENT AUTO 24.1 % (24.0-44.0); MEAN CORPUSCULAR HEMOGLOBIN 29.9 pg (28.0-32.0); MEAN CORPUSCULAR HGB CONC 33.6 g/dL (32.0-36.0); MEAN CORPUSCULAR VOLUME 89.1 fL (83.0-99.0); MEAN PLATELET VOLUME 9.8 fL (9.4-12.4); MONOCYTES ABSOLUTE AUTO 0.91 K/uL (0.00-0.80); MONOCYTES PERCENT AUTO 16.7 % (0.0-8.0); NEUTROPHILS ABSOLUTE AUTO 2.95 K/uL (1.80-7.70); NEUTROPHILS PERCENT AUTO 54.2 % (41.0-71.0); PLATELET COUNT,PLT 145 K/uL (150-400); RED BLOOD CELL COUNT 4.48 M/uL (4.52-5.90); WHITE BLOOD CELL COUNT,WBC 5.44 K/uL (3.9-11.3)
[2024-03-23] MEDS: Sodium Chloride 0.9% 500 ML IV SCH (06:23)
[2024-03-23 06:39] LABS: A/G RATIO 0.8 (0.9-1.6); ALBUMIN 2.6 g/dL (3.4-5.0); BILIRUBIN TOTAL 1.9 mg/dL (0.2-1.0); CALCIUM 8.4 mg/dL (8.5-10.1); CARBON DIOXIDE,CO2 24.8 mmol/L (21.0-32.0); CREATININE 3.2 mg/dL (0.8-1.3); EST CRCL DRUG DOSING (CG) 20.91 mL/min; POTASSIUM,K 4.1 mmol/L (3.5-5.1)
[2024-03-23] MEDS: Insulin Aspart 100 Units/ML 3 ML Pen SUBCUT SCH (07:30)
[2024-03-23] MEDS: Sodium Chloride 0.9% 1,000 ML IV ONE (10:12)
[2024-03-23 11:22] LABS: PH,VENOUS 7.27 (7.31-7.41)
[2024-03-23] MEDS: Tamsulosin 0.4 MG Cap.ER PO ONE ×2 (11:28→22:28)
[2024-03-23] MEDS ORDERED: cefTRIAXone 2 GM in Sodium Chloride 0.9% 50 ML IV SCH (14:45)
[2024-03-23] MEDS: cefTRIAXone 2 GM in Sodium Chloride 0.9% 50 ML IV SCH (15:45)
[2024-03-23 19:10] LABS: BASOPHILS ABSOLUTE AUTO 0.03 K/uL (0.00-0.20); BASOPHILS PERCENT AUTO 0.6 % (0.0-1.0); EOSINOPHILS PERCENT AUTO 3.8 % (0.0-6.0); HEMATOCRIT 36.5 % (42.0-52.0); HEMOGLOBIN 12.4 g/dL (14.0-18.0); IMMATURE GRAN ABSOLUTE AUTO 0.02 K/uL (0.00-0.05); IMMATURE GRAN PERCENT AUTO 0.4 % (0.0-0.4); LYMPHOCYTES ABSOLUTE AUTO 1.12 K/uL (1.00-4.80); LYMPHOCYTES PERCENT AUTO 21.3 % (24.0-44.0); MEAN CORPUSCULAR HEMOGLOBIN 30.1 pg (28.0-32.0); MEAN CORPUSCULAR VOLUME 88.6 fL (83.0-99.0); MEAN PLATELET VOLUME 9.8 fL (9.4-12.4); MONOCYTES ABSOLUTE AUTO 0.89 K/uL (0.00-0.80); MONOCYTES PERCENT AUTO 16.9 % (0.0-8.0); NEUTROPHILS ABSOLUTE AUTO 3.01 K/uL (1.80-7.70); PLATELET COUNT,PLT 130 K/uL (150-400); RED BLOOD CELL COUNT 4.12 M/uL (4.52-5.90); WHITE BLOOD CELL COUNT,WBC 5.27 K/uL (3.9-11.3)
[2024-03-23 19:32] LABS: A/G RATIO 0.7 (0.9-1.6); ALBUMIN 2.3 g/dL (3.4-5.0); BILIRUBIN TOTAL 1.7 mg/dL (0.2-1.0); CALCIUM 7.7 mg/dL (8.5-10.1); CARBON DIOXIDE,CO2 22.4 mmol/L (21.0-32.0); CREATININE 3.6 mg/dL (0.8-1.3); EST CRCL DRUG DOSING (CG) 18.59 mL/min; POTASSIUM,K 4.2 mmol/L (3.5-5.1); PROTEIN TOTAL,TP 5.5 g/dL (6.4-8.2)
[2024-03-23] MEDS: Nystatin Crm 30 GM Tube TOP SCH (20:00)
[2024-03-24] MEDS: Sodium Chloride 0.9% 500 ML IV ONE (02:07)
[2024-03-24] MEDS: Furosemide 20 MG/2 ML VIAL IVPUSH ONE ×2 (02:07→11:26)
[2024-03-24] MEDS: Acetaminophen 325 MG Tab PO PRN (02:23)
[2024-03-24 06:27] LABS: BASOPHILS ABSOLUTE AUTO 0.02 K/uL (0.00-0.20); BASOPHILS PERCENT AUTO 0.4 % (0.0-1.0); EOSINOPHILS ABSOLUTE AUTO 0.15 K/uL (0.00-0.45); EOSINOPHILS PERCENT AUTO 3.3 % (0.0-6.0); HEMATOCRIT 38.2 % (42.0-52.0); HEMOGLOBIN 12.8 g/dL (14.0-18.0); IMMATURE GRAN ABSOLUTE AUTO 0.01 K/uL (0.00-0.05); IMMATURE GRAN PERCENT AUTO 0.2 % (0.0-0.4); LYMPHOCYTES ABSOLUTE AUTO 1.02 K/uL (1.00-4.80); LYMPHOCYTES PERCENT AUTO 22.7 % (24.0-44.0); MEAN CORPUSCULAR HEMOGLOBIN 29.4 pg (28.0-32.0); MEAN CORPUSCULAR HGB CONC 33.5 g/dL (32.0-36.0); MEAN CORPUSCULAR VOLUME 87.8 fL (83.0-99.0); MEAN PLATELET VOLUME 10.3 fL (9.4-12.4); MONOCYTES ABSOLUTE AUTO 0.73 K/uL (0.00-0.80); MONOCYTES PERCENT AUTO 16.3 % (0.0-8.0); NEUTROPHILS ABSOLUTE AUTO 2.56 K/uL (1.80-7.70); NEUTROPHILS PERCENT AUTO 57.1 % (41.0-71.0); PLATELET COUNT,PLT 128 K/uL (150-400); RED BLOOD CELL COUNT 4.35 M/uL (4.52-5.90); WHITE BLOOD CELL COUNT,WBC 4.49 K/uL (3.9-11.3)
[2024-03-24 06:51] LABS: A/G RATIO 0.8 (0.9-1.6); ALBUMIN 2.4 g/dL (3.4-5.0); BILIRUBIN TOTAL 1.7 mg/dL (0.2-1.0); CALCIUM 7.7 mg/dL (8.5-10.1); CARBON DIOXIDE,CO2 21.3 mmol/L (21.0-32.0); CREATININE 3.7 mg/dL (0.8-1.3); EST CRCL DRUG DOSING (CG) 18.09 mL/min; POTASSIUM,K 4.2 mmol/L (3.5-5.1); PROTEIN TOTAL,TP 5.6 g/dL (6.4-8.2)
[2024-03-24] MEDS ORDERED: cefTRIAXone 2 GM in Sodium Chloride 0.9% 50 ML IV SCH (14:45)
[2024-03-24 17:17] VITALS: BP 128/60; PULSE 70
== END 2024-03-24 15:30 | DRG 683 ==
LOC: MW.ED 20:18 → MW.MS 03-22 04:47
PROVIDERS: ADMIT Family Medicine; ATTEND Family Medicine
DX: N17.9 Acute kidney failure, unspecified (principal); F11.20 Opioid dependence, uncomplicated; K56.7 Ileus, unspecified; Z68.42 Body mass index [BMI] 45.0-49.9, adult; E86.0 Dehydration; I25.10 Atherosclerotic heart disease of native coronary artery without angina pectoris; G47.33 Obstructive sleep apnea (adult) (pediatric); M06.9 Rheumatoid arthritis, unspecified; E66.01 Morbid (severe) obesity due to excess calories; G89.29 Other chronic pain; I25.2 Old myocardial infarction; M54.50 Low back pain, unspecified; G47.30 Sleep apnea, unspecified; I10 Essential (primary) hypertension; E11.9 Type 2 diabetes mellitus without complications; I95.0 Idiopathic hypotension; M19.90 Unspecified osteoarthritis, unspecified site; E66.9 Obesity, unspecified; Z99.81 Dependence on supplemental oxygen; Z91.09 Other allergy status, other than to drugs and biological substances; Z95.5 Presence of coronary angioplasty implant and graft; Z86.718 Personal history of other venous thrombosis and embolism; Z68.41 Body mass index [BMI] 40.0-44.9, adult; Z88.5 Allergy status to narcotic agent; Z79.2 Long term (current) use of antibiotics; Z88.8 Allergy status to other drugs, medicaments and biological substances; Z79.4 Long term (current) use of insulin; Z79.899 Other long term (current) drug therapy; R41.82 Altered mental status, unspecified
CPT/HCPCS: 36415; 71045; 74176; 80053; 82803; 82947; 83735; 83880; 84484; 85025; 87428; 93005 ×2; 96361; 96374; 99285; J2765; J7030; 51702; 70450; 70450-26; 71250; 71250-26; 76705; 76705-26; 80048; 81001; 82140; 87086; 87088; 87186; 93010; 93306; 97162-GP; 99222; 99232; 99239; 99284; A9270-GY; J0696; J1644; J1940; J3490; J7040

== ENCOUNTER 2024-04-16 22:41 | Inpatient (IN) | payer MEDICARE ==
[2024-04-16] MEDS ORDERED: Sodium Chloride 0.9% 2.5 ML Syringe FLUSH PRN (23:17)
[2024-04-16] MEDS ORDERED: Sodium Chloride 0.9% 10 ML Syringe FLUSH PRN (23:17)
[2024-04-16] MEDS: Sodium Chloride 0.9% 1,000 ML IV ONE (23:46)
[2024-04-16 23:53] LABS: BASOPHILS ABSOLUTE AUTO 0.04 K/uL (0.00-0.20); BASOPHILS PERCENT AUTO 0.8 % (0.0-1.0); EOSINOPHILS ABSOLUTE AUTO 0.43 K/uL (0.00-0.45); EOSINOPHILS PERCENT AUTO 8.3 % (0.0-6.0); HEMATOCRIT 50.2 % (42.0-52.0); HEMOGLOBIN 16.3 g/dL (14.0-18.0); IMMATURE GRAN ABSOLUTE AUTO 0.01 K/uL (0.00-0.05); IMMATURE GRAN PERCENT AUTO 0.2 % (0.0-0.4); LYMPHOCYTES ABSOLUTE AUTO 1.81 K/uL (1.00-4.80); LYMPHOCYTES PERCENT AUTO 35.1 % (24.0-44.0); MEAN CORPUSCULAR HGB CONC 32.5 g/dL (32.0-36.0); MEAN CORPUSCULAR VOLUME 89.2 fL (83.0-99.0); MONOCYTES ABSOLUTE AUTO 0.72 K/uL (0.00-0.80); NEUTROPHILS ABSOLUTE AUTO 2.15 K/uL (1.80-7.70); NEUTROPHILS PERCENT AUTO 41.6 % (41.0-71.0); PLATELET COUNT,PLT 151 K/uL (150-400); RED BLOOD CELL COUNT 5.63 M/uL (4.52-5.90); WHITE BLOOD CELL COUNT,WBC 5.16 K/uL (3.9-11.3)
[2024-04-16] MEDS: cefTRIAXone 1 GM in Sodium Chloride 0.9% 50 ML IV ONE (23:57)
[2024-04-17 00:33] LABS: A/G RATIO 0.6 (0.9-1.6); ALBUMIN 2.7 g/dL (3.4-5.0); BILIRUBIN TOTAL 3.8 mg/dL (0.2-1.0); CALCIUM 9.2 mg/dL (8.5-10.1); CARBON DIOXIDE,CO2 31.3 mmol/L (21.0-32.0); CREATININE 1.5 mg/dL (0.8-1.3); EST CRCL DRUG DOSING (CG) 44.61 mL/min; MAGNESIUM 1.6 mg/dL (1.8-2.4); POTASSIUM,K 3.8 mmol/L (3.5-5.1); PROTEIN TOTAL,TP 6.9 g/dL (6.4-8.2)
[2024-04-17 00:35] LABS: LACTIC ACID 2.5 mmol/L (0.4-2.0)
[2024-04-17] MEDS: Acetaminophen 500 MG Tab PO ONE (02:01)
[2024-04-17] MEDS: Iopamidol 755 MG/ML 500 ML Multipack Bottle IVPUSH STA (08:16)
[2024-04-17 10:57] LABS: BICARBONATE,ARTERIAL 27 mEq/L (22-26); PCO2 ARTERIAL 44 mmHG (35-45); PO2 ARTERIAL 62 mmHG (80-105)
[2024-04-17] MEDS ORDERED: Magnesium Sulfate (4.06 MEQ/ML) 5 GM/10 ML SDV IV ONE (14:30)
[2024-04-17] MEDS: Magnesium Sulf/Wat 4 GM/100 mL 4 GM in Premix Bag 1 BAG IV ONE (15:21)
[2024-04-17] MEDS ORDERED: Acetaminophen 325 MG Tab PO PRN (15:37)
[2024-04-17] MEDS: Enoxaparin 40 MG/0.4 ML Syringe SUBCUT SCH ×2 (19:42→20:37)
[2024-04-17] MEDS: Bumetanide 1 MG Tab PO SCH (19:43)
[2024-04-17 19:44] LABS: GLUCOSE,URINE NEGATIVE (NEGATIVE); KETONES,URINE TRACE mg/dL (NEGATIVE); LEUKOCYTE ESTERASE,URINE NEGATIVE (NEGATIVE); NITRITE,URINE POSITIVE (NEGATIVE); OCCULT BLOOD,URINE MODERATE (NEGATIVE); PH,URINE 5.5 (5.0-8.0); PROTEIN,URINE NEGATIVE (NEGATIVE); UROBILINOGEN,URINE 0.2 EU/dL (<2.0)
[2024-04-17 19:50] LABS: APPEARANCE,URINE HAZY; BILIRUBIN,URINE MODERATE (NEGATIVE); COLOR,URINE DARK YELLOW
[2024-04-17] MEDS ORDERED: 50% Dextrose in Water 50 ML Syringe IVPUSH PRN (19:57)
[2024-04-17] MEDS ORDERED: Glucagon,Human Recombinant 1 MG Vial IM PRN (19:57)
[2024-04-17] MEDS ORDERED: VANCOmycin 750 MG in Sodium Chloride 0.9% 250 ML IV SCH (21:00)
[2024-04-17] MEDS: Sodium Chloride 0.9% 1,000 ML IV SCH (21:16)
[2024-04-17] MEDS: Ondansetron 4 MG Tab.DIS PO PRN (21:17)
[2024-04-17] MEDS: Docusate Sodium 100 MG Cap PO SCH (21:19)
[2024-04-17] MEDS: VANCOmycin 2 GM/400 ML 2 GM in Premix Bag 1 BAG IV ONE (21:19)
[2024-04-17] MEDS: Magnesium Oxide 400 MG Tab PO SCH (21:19)
[2024-04-17] MEDS: Pravastatin 40 MG Tab PO SCH (21:34)
[2024-04-17] MEDS: traZODone 50 MG Tab PO SCH (21:34)
[2024-04-17 22:15] LABS: BACTERIA,URINE FEW (NEGATIVE); EPITHELIAL CELLS,URINE RARE (NONE-FEW); HYALINE CASTS,URINE 0-1 (0-2/LPF); RBC,URINE 0-3 (0-2/HPF); WBC,URINE 0-1 (0-5/HPF)
[2024-04-17] MEDS: Midodrine 5 MG Tab PO SCH (22:54)
[2024-04-17] MEDS: cefTRIAXone 1 GM in Sodium Chloride 0.9% 50 ML IV SCH (23:46)
[2024-04-18] MEDS: 50% Dextrose in Water 50 ML Syringe IVPUSH ONE (00:54)
[2024-04-18] MEDS: Dextrose 5%-0.9% NaCl 1,000 ML IV SCH (00:56)
[2024-04-18] MEDS: Dextrose 5%-0.45% NaCl 1,000 ML IV SCH (01:31)
[2024-04-18 06:03] LABS: BASOPHILS ABSOLUTE AUTO 0.07 K/uL (0.00-0.20); BASOPHILS PERCENT AUTO 1.4 % (0.0-1.0); EOSINOPHILS ABSOLUTE AUTO 0.51 K/uL (0.00-0.45); HEMATOCRIT 43.3 % (42.0-52.0); HEMOGLOBIN 14.1 g/dL (14.0-18.0); IMMATURE GRAN ABSOLUTE AUTO 0.01 K/uL (0.00-0.05); IMMATURE GRAN PERCENT AUTO 0.2 % (0.0-0.4); LYMPHOCYTES PERCENT AUTO 27.4 % (24.0-44.0); MEAN CORPUSCULAR HEMOGLOBIN 28.9 pg (28.0-32.0); MEAN CORPUSCULAR HGB CONC 32.6 g/dL (32.0-36.0); MEAN CORPUSCULAR VOLUME 88.7 fL (83.0-99.0); MEAN PLATELET VOLUME 9.4 fL (9.4-12.4); MONOCYTES ABSOLUTE AUTO 0.96 K/uL (0.00-0.80); MONOCYTES PERCENT AUTO 18.8 % (0.0-8.0); NEUTROPHILS ABSOLUTE AUTO 2.16 K/uL (1.80-7.70); NEUTROPHILS PERCENT AUTO 42.2 % (41.0-71.0); PLATELET COUNT,PLT 131 K/uL (150-400); RED BLOOD CELL COUNT 4.88 M/uL (4.52-5.90); WHITE BLOOD CELL COUNT,WBC 5.11 K/uL (3.9-11.3)
[2024-04-18] MEDS: VANCOmycin 750 MG in Sodium Chloride 0.9% 250 ML IV SCH (06:25)
[2024-04-18 06:37] LABS: A/G RATIO 0.6 (0.9-1.6); ALBUMIN 2.2 g/dL (3.4-5.0); BILIRUBIN TOTAL 3.5 mg/dL (0.2-1.0); CALCIUM 8.5 mg/dL (8.5-10.1); CARBON DIOXIDE,CO2 24.9 mmol/L (21.0-32.0); CREATININE 1.7 mg/dL (0.8-1.3); EST CRCL DRUG DOSING (CG) 39.36 mL/min; MAGNESIUM 2.4 mg/dL (1.8-2.4); PROTEIN TOTAL,TP 5.9 g/dL (6.4-8.2)
[2024-04-18] MEDS: Pantoprazole 40 MG Tab.CR PO SCH (07:09)
[2024-04-18] MEDS: Insulin Aspart 100 Units/ML 3 ML Pen SUBCUT SCH (07:56)
[2024-04-18] MEDS: Clopidogrel 75 MG Tab PO SCH (08:05)
[2024-04-18] MEDS: Polyethylene Glycol 3350 Powder 17 GM Packet PO SCH (08:05)
[2024-04-18] MEDS: Potassium Chloride 20 MEQ Tab.ER PO SCH (08:05)
[2024-04-18] MEDS: VANCOmycin 1 GM in Sodium Chloride 0.9% 250 ML IV SCH (18:04)
[2024-04-19 06:05] LABS: BASOPHILS ABSOLUTE AUTO 0.04 K/uL (0.00-0.20); BASOPHILS PERCENT AUTO 0.8 % (0.0-1.0); EOSINOPHILS ABSOLUTE AUTO 0.46 K/uL (0.00-0.45); EOSINOPHILS PERCENT AUTO 9.3 % (0.0-6.0); HEMATOCRIT 40.2 % (42.0-52.0); IMMATURE GRAN ABSOLUTE AUTO 0.01 K/uL (0.00-0.05); IMMATURE GRAN PERCENT AUTO 0.2 % (0.0-0.4); LYMPHOCYTES PERCENT AUTO 30.2 % (24.0-44.0); MEAN CORPUSCULAR HEMOGLOBIN 29.1 pg (28.0-32.0); MEAN CORPUSCULAR HGB CONC 32.3 g/dL (32.0-36.0); MEAN CORPUSCULAR VOLUME 90.1 fL (83.0-99.0); MEAN PLATELET VOLUME 10.1 fL (9.4-12.4); MONOCYTES ABSOLUTE AUTO 0.88 K/uL (0.00-0.80); MONOCYTES PERCENT AUTO 17.7 % (0.0-8.0); NEUTROPHILS ABSOLUTE AUTO 2.07 K/uL (1.80-7.70); NEUTROPHILS PERCENT AUTO 41.8 % (41.0-71.0); PLATELET COUNT,PLT 122 K/uL (150-400); RED BLOOD CELL COUNT 4.46 M/uL (4.52-5.90); WHITE BLOOD CELL COUNT,WBC 4.96 K/uL (3.9-11.3)
[2024-04-19 06:29] LABS: A/G RATIO 0.6 (0.9-1.6); ALBUMIN 2.1 g/dL (3.4-5.0); CALCIUM 8.3 mg/dL (8.5-10.1); CARBON DIOXIDE,CO2 26.7 mmol/L (21.0-32.0); CREATININE 2.7 mg/dL (0.8-1.3); EST CRCL DRUG DOSING (CG) 24.78 mL/min; MAGNESIUM 2.3 mg/dL (1.8-2.4); POTASSIUM,K 4.5 mmol/L (3.5-5.1); PROTEIN TOTAL,TP 5.5 g/dL (6.4-8.2)
[2024-04-19] MEDS: HYDROmorphone 2 MG Tab PO PRN (13:07)
[2024-04-19] MEDS: VANCOmycin 750 MG in Sodium Chloride 0.9% 250 ML IV SCH (17:48)
[2024-04-19] MEDS: Ondansetron 4 MG/2 ML SDV IVPUSH PRN (22:26)
[2024-04-20] MEDS: Haloperidol Lactate 5 MG/ML SDV IM ONE (05:46)
[2024-04-20 08:19] LABS: BASOPHILS ABSOLUTE AUTO 0.03 K/uL (0.00-0.20); BASOPHILS PERCENT AUTO 0.8 % (0.0-1.0); EOSINOPHILS ABSOLUTE AUTO 0.36 K/uL (0.00-0.45); EOSINOPHILS PERCENT AUTO 10.1 % (0.0-6.0); HEMATOCRIT 38.2 % (42.0-52.0); HEMOGLOBIN 12.6 g/dL (14.0-18.0); IMMATURE GRAN ABSOLUTE AUTO 0.01 K/uL (0.00-0.05); IMMATURE GRAN PERCENT AUTO 0.3 % (0.0-0.4); LYMPHOCYTES ABSOLUTE AUTO 1.01 K/uL (1.00-4.80); LYMPHOCYTES PERCENT AUTO 28.2 % (24.0-44.0); MEAN CORPUSCULAR HEMOGLOBIN 29.9 pg (28.0-32.0); MEAN CORPUSCULAR VOLUME 90.7 fL (83.0-99.0); MEAN PLATELET VOLUME 9.6 fL (9.4-12.4); NEUTROPHILS ABSOLUTE AUTO 1.67 K/uL (1.80-7.70); NEUTROPHILS PERCENT AUTO 46.6 % (41.0-71.0); PLATELET COUNT,PLT 104 K/uL (150-400); RED BLOOD CELL COUNT 4.21 M/uL (4.52-5.90); WHITE BLOOD CELL COUNT,WBC 3.58 K/uL (3.9-11.3)
[2024-04-20 08:39] LABS: A/G RATIO 0.6 (0.9-1.6); ALBUMIN 2.2 g/dL (3.4-5.0); BILIRUBIN TOTAL 2.5 mg/dL (0.2-1.0); CALCIUM 8.1 mg/dL (8.5-10.1); CARBON DIOXIDE,CO2 22.7 mmol/L (21.0-32.0); CREATININE 3.9 mg/dL (0.8-1.3); EST CRCL DRUG DOSING (CG) 17.16 mL/min; MAGNESIUM 2.7 mg/dL (1.8-2.4); POTASSIUM,K 4.1 mmol/L (3.5-5.1); PROTEIN TOTAL,TP 5.8 g/dL (6.4-8.2)
[2024-04-20] MEDS: Sodium Chloride 0.9% 1,000 ML IV SCH (12:26)
[2024-04-20 15:06] VITALS: PULSE 84
[2024-04-20] MEDS: VANCOmycin 500 MG in Sodium Chloride 0.9% 100 ML IV SCH (17:51)
[2024-04-20 18:05] VITALS: BP 119/60
[2024-04-20] MEDS ORDERED: cefTRIAXone 1 GM in Sodium Chloride 0.9% 50 ML IV SCH (21:00)
== END 2024-04-20 18:22 | DRG 872 ==
LOC: MW.ED 22:41 → MW.MS 04-17 14:29 → INTOOBSV 04-17 14:29 → MW.MS 04-17 15:24 → UNDOADMIN 04-17 15:24 → OBSVTOIN 04-18 09:57
PROVIDERS: ADMIT Internal Medicine; ATTEND Internal Medicine
PROC: 4A033R1 Measurement of Arterial Saturation, Peripheral, Percutaneous Approach (ICD-10-PCS; principal; 2024-04-16)
PROC: 3E03329 Introduction of Other Anti-infective into Peripheral Vein, Percutaneous Approach (ICD-10-PCS; 2024-04-16)
DX: A41.9 Sepsis, unspecified organism (principal); N17.9 Acute kidney failure, unspecified; E83.42 Hypomagnesemia; J44.1 Chronic obstructive pulmonary disease with (acute) exacerbation; N39.0 Urinary tract infection, site not specified; I13.0 Hypertensive heart and chronic kidney disease with heart failure and stage 1 through stage 4 chronic kidney disease, or unspecified chronic kidney disease; R09.02 Hypoxemia; I11.0 Hypertensive heart disease with heart failure; E11.65 Type 2 diabetes mellitus with hyperglycemia; I50.9 Heart failure, unspecified; J32.9 Chronic sinusitis, unspecified; J44.9 Chronic obstructive pulmonary disease, unspecified; E78.5 Hyperlipidemia, unspecified; G47.30 Sleep apnea, unspecified; M54.9 Dorsalgia, unspecified; G89.29 Other chronic pain; M19.90 Unspecified osteoarthritis, unspecified site; I25.10 Atherosclerotic heart disease of native coronary artery without angina pectoris; I25.2 Old myocardial infarction; N18.9 Chronic kidney disease, unspecified; E11.9 Type 2 diabetes mellitus without complications; Z88.8 Allergy status to other drugs, medicaments and biological substances; E66.9 Obesity, unspecified; Z95.5 Presence of coronary angioplasty implant and graft; Z90.49 Acquired absence of other specified parts of digestive tract; Z79.4 Long term (current) use of insulin; Z79.899 Other long term (current) drug therapy; Z88.5 Allergy status to narcotic agent; Z91.09 Other allergy status, other than to drugs and biological substances; Z68.41 Body mass index [BMI] 40.0-44.9, adult
CPT/HCPCS: 36415 ×3; 36600; 51701; 71045; 71275; 80053 ×2; 80202; 81001; 82803; 82947 ×7; 83605 ×3; 83735 ×2; 84484 ×2; 85025 ×2; 85379; 87040 ×4; 87077 ×2; 87086; 87186 ×2; 87428; 93005 ×2; A9270 ×13; J0696 ×2; J1650; J3370; J3372; J3475; J3490 ×2; J7030 ×2; J7042; J7050; J7799; Q9967; 51702; 74176; 74176-26; 93010; 99284; J1630; J2405

== ENCOUNTER 2024-06-17 18:59 | Emergency (ER) | payer MEDICARE ==
[2024-06-17 20:01] LABS: BASOPHILS ABSOLUTE AUTO 0.03 K/uL (0.00-0.20); BASOPHILS PERCENT AUTO 0.6 % (0.0-1.0); EOSINOPHILS ABSOLUTE AUTO 0.22 K/uL (0.00-0.45); EOSINOPHILS PERCENT AUTO 4.2 % (0.0-6.0); HEMATOCRIT 42.5 % (42.0-52.0); HEMOGLOBIN 14.6 g/dL (14.0-18.0); IMMATURE GRAN ABSOLUTE AUTO 0.02 K/uL (0.00-0.05); IMMATURE GRAN PERCENT AUTO 0.4 % (0.0-0.4); LYMPHOCYTES ABSOLUTE AUTO 1.59 K/uL (1.00-4.80); LYMPHOCYTES PERCENT AUTO 30.2 % (24.0-44.0); MEAN CORPUSCULAR HEMOGLOBIN 30.4 pg (28.0-32.0); MEAN CORPUSCULAR HGB CONC 34.4 g/dL (32.0-36.0); MEAN CORPUSCULAR VOLUME 88.4 fL (83.0-99.0); MONOCYTES ABSOLUTE AUTO 0.71 K/uL (0.00-0.80); MONOCYTES PERCENT AUTO 13.5 % (0.0-8.0); NEUTROPHILS PERCENT AUTO 51.1 % (41.0-71.0); PLATELET COUNT,PLT 170 K/uL (150-400); RED BLOOD CELL COUNT 4.81 M/uL (4.52-5.90); WHITE BLOOD CELL COUNT,WBC 5.27 K/uL (3.9-11.3)
[2024-06-17 20:22] LABS: A/G RATIO 0.6 (0.9-1.6); ALBUMIN 2.5 g/dL (3.4-5.0); BILIRUBIN TOTAL 2.2 mg/dL (0.2-1.0); CALCIUM 8.5 mg/dL (8.5-10.1); CARBON DIOXIDE,CO2 30.7 mmol/L (21.0-32.0); CREATININE 1.2 mg/dL (0.8-1.3); EST CRCL DRUG DOSING (CG) 55.76 mL/min; POTASSIUM,K 3.5 mmol/L (3.5-5.1); PROTEIN TOTAL,TP 6.5 g/dL (6.4-8.2)
[2024-06-17] MEDS: droPERidol 2.5 MG/ML SDV IVPUSH ONE (20:23)
[2024-06-17] MEDS: Sodium Chloride 0.9% 500 ML IV ONE (20:33)
[2024-06-17] MEDS: Sodium Chloride 0.9% 500 ML IV STA (20:33)
[2024-06-17] MEDS: HYDROmorphone 0.5 MG/0.5 ML Syringe IVPUSH ONE (22:40)
[2024-06-17 23:09] VITALS: BP 107/60; PULSE 82
== END 2024-06-17 23:07 | disposition home or self-care (01) ==
LOC: MW.ED 18:59
DX: R53.1 Weakness (principal); H60.502 Unspecified acute noninfective otitis externa, left ear; E11.9 Type 2 diabetes mellitus without complications; I25.10 Atherosclerotic heart disease of native coronary artery without angina pectoris; I10 Essential (primary) hypertension; I25.2 Old myocardial infarction; Z88.5 Allergy status to narcotic agent; Z91.048 Other nonmedicinal substance allergy status; Z79.4 Long term (current) use of insulin; Z79.899 Other long term (current) drug therapy; Z95.5 Presence of coronary angioplasty implant and graft
CPT/HCPCS: 36415; 71045; 80053; 84484; 85025; 96361; 96374; 96375; 99285; J1790; J7040; 99283

== ENCOUNTER 2024-07-20 22:39 | Emergency (ER) | payer MEDICARE, OTHER ==
[2024-07-20] MEDS: Sodium Chloride 0.9% 500 ML IV ONE (22:53)
[2024-07-20 23:01] LABS: BASOPHILS ABSOLUTE AUTO 0.04 K/uL (0.00-0.20); BASOPHILS PERCENT AUTO 0.5 % (0.0-1.0); EOSINOPHILS ABSOLUTE AUTO 0.06 K/uL (0.00-0.45); EOSINOPHILS PERCENT AUTO 0.7 % (0.0-6.0); HEMATOCRIT 45.6 % (42.0-52.0); HEMOGLOBIN 15.4 g/dL (14.0-18.0); IMMATURE GRAN ABSOLUTE AUTO 0.02 K/uL (0.00-0.05); IMMATURE GRAN PERCENT AUTO 0.2 % (0.0-0.4); LYMPHOCYTES ABSOLUTE AUTO 1.46 K/uL (1.00-4.80); LYMPHOCYTES PERCENT AUTO 17.8 % (24.0-44.0); MEAN CORPUSCULAR HEMOGLOBIN 30.6 pg (28.0-32.0); MEAN CORPUSCULAR HGB CONC 33.8 g/dL (32.0-36.0); MEAN CORPUSCULAR VOLUME 90.5 fL (83.0-99.0); MEAN PLATELET VOLUME 9.7 fL (9.4-12.4); MONOCYTES ABSOLUTE AUTO 0.73 K/uL (0.00-0.80); MONOCYTES PERCENT AUTO 8.9 % (0.0-8.0); NEUTROPHILS ABSOLUTE AUTO 5.88 K/uL (1.80-7.70); NEUTROPHILS PERCENT AUTO 71.9 % (41.0-71.0); PLATELET COUNT,PLT 205 K/uL (150-400); RED BLOOD CELL COUNT 5.04 M/uL (4.52-5.90); WHITE BLOOD CELL COUNT,WBC 8.19 K/uL (3.9-11.3)
[2024-07-20 23:30] LABS: A/G RATIO 0.5 (0.9-1.6); ALBUMIN 2.5 g/dL (3.4-5.0); BILIRUBIN TOTAL 1.9 mg/dL (0.2-1.0); CALCIUM 8.8 mg/dL (8.5-10.1); CARBON DIOXIDE,CO2 23.8 mmol/L (21.0-32.0); CREATININE 1.2 mg/dL (0.8-1.3); EST CRCL DRUG DOSING (CG) 54.92 mL/min; MAGNESIUM 1.5 mg/dL (1.8-2.4); PROTEIN TOTAL,TP 7.1 g/dL (6.4-8.2)
[2024-07-21] MEDS: fentaNYL 50 MCG/ML SDV IVPUSH ONE (00:53)
[2024-07-21] MEDS: HYDROmorphone 0.5 MG/0.5 ML Syringe IVPUSH ONE ×2 (02:54→06:04)
[2024-07-21] MEDS: Ketorolac 30 MG/ML SDV IVPUSH ONE (06:03)
[2024-07-21 07:06] VITALS: BP 149/70; PULSE 75
== END 2024-07-21 06:47 | disposition home or self-care (01) ==
LOC: MW.ED 22:39
DX: I95.1 Orthostatic hypotension (principal); I11.0 Hypertensive heart disease with heart failure; I50.9 Heart failure, unspecified; E66.9 Obesity, unspecified; E11.9 Type 2 diabetes mellitus without complications; Z88.5 Allergy status to narcotic agent; Z88.8 Allergy status to other drugs, medicaments and biological substances; Z87.39 Personal history of other diseases of the musculoskeletal system and connective tissue; Z79.4 Long term (current) use of insulin; Z79.899 Other long term (current) drug therapy
CPT/HCPCS: 36415; 71045; 71250; 74176; 80053; 82550; 82947; 83690; 83735; 83880; 84484; 85025; 93005; 96361; 96374; 96375; 96376; 99285; J1885; J3010; J7030; 93010; 99284

== ENCOUNTER 2024-07-28 10:38 | Emergency (ER) | payer MEDICARE ==
[2024-07-28 14:01] VITALS: BP 129/75; PULSE 89
== END 2024-07-28 13:30 | disposition home or self-care (01) ==
LOC: MW.ED 10:38
DX: S63.502A Unspecified sprain of left wrist, initial encounter (principal); I48.91 Unspecified atrial fibrillation; I11.0 Hypertensive heart disease with heart failure; I50.9 Heart failure, unspecified; I25.2 Old myocardial infarction; J44.9 Chronic obstructive pulmonary disease, unspecified; E11.9 Type 2 diabetes mellitus without complications; Z72.89 Other problems related to lifestyle; Z75.3 Unavailability and inaccessibility of health-care facilities; Z88.5 Allergy status to narcotic agent; Z91.048 Other nonmedicinal substance allergy status; Z79.899 Other long term (current) drug therapy; X50.0XXA Overexertion from strenuous movement or load, initial encounter; Y93.89 Activity, other specified
CPT/HCPCS: 29125; 73110-26-LT; 73110-LT; 73130-26-LT; 73130-LT; 99282; 99284-25

== ENCOUNTER 2024-08-17 17:27 | Emergency (ER) | payer MEDICARE ==
[2024-08-17] MEDS ORDERED: Sodium Chloride 0.9% 20 ML SDV IV PRN (18:06)
[2024-08-17] MEDS ORDERED: Sodium Chloride 0.9% 10 ML Syringe FLUSH PRN (18:06)
[2024-08-17] MEDS ORDERED: Sodium Chloride 0.9% 2.5 ML Syringe FLUSH PRN (18:06)
[2024-08-17 18:27] LABS: BASOPHILS ABSOLUTE AUTO 0.04 K/uL (0.00-0.20); BASOPHILS PERCENT AUTO 0.7 % (0.0-1.0); EOSINOPHILS ABSOLUTE AUTO 0.17 K/uL (0.00-0.45); EOSINOPHILS PERCENT AUTO 2.9 % (0.0-6.0); HEMATOCRIT 42.3 % (42.0-52.0); HEMOGLOBIN 14.9 g/dL (14.0-18.0); IMMATURE GRAN ABSOLUTE AUTO 0.01 K/uL (0.00-0.05); IMMATURE GRAN PERCENT AUTO 0.2 % (0.0-0.4); LYMPHOCYTES ABSOLUTE AUTO 1.73 K/uL (1.00-4.80); LYMPHOCYTES PERCENT AUTO 29.4 % (24.0-44.0); MEAN CORPUSCULAR HGB CONC 35.2 g/dL (32.0-36.0); MEAN CORPUSCULAR VOLUME 88.1 fL (83.0-99.0); MEAN PLATELET VOLUME 9.8 fL (9.4-12.4); MONOCYTES ABSOLUTE AUTO 0.62 K/uL (0.00-0.80); MONOCYTES PERCENT AUTO 10.5 % (0.0-8.0); NEUTROPHILS ABSOLUTE AUTO 3.32 K/uL (1.80-7.70); NEUTROPHILS PERCENT AUTO 56.3 % (41.0-71.0); PLATELET COUNT,PLT 153 K/uL (150-400); WHITE BLOOD CELL COUNT,WBC 5.89 K/uL (3.9-11.3)
[2024-08-17] MEDS: Sodium Chloride 0.9% 500 ML IV SCH (18:42)
[2024-08-17 18:43] LABS: INR 1.27 (0.86-1.11); PTT,PARTIAL THROMBOPLSTIN TIME 32.2 SEC (23.9-30.7)
[2024-08-17 18:57] LABS: LACTIC ACID 1.7 mmol/L (0.4-2.0)
[2024-08-17 19:01] LABS: A/G RATIO 0.7 (0.9-1.6); ALBUMIN 2.9 g/dL (3.4-5.0); BILIRUBIN TOTAL 2.1 mg/dL (0.2-1.0); CALCIUM 8.4 mg/dL (8.5-10.1); CARBON DIOXIDE,CO2 29.1 mmol/L (21.0-32.0); CREATININE 1.3 mg/dL (0.8-1.3); EST CRCL DRUG DOSING (CG) 50.69 mL/min; MAGNESIUM 1.2 mg/dL (1.8-2.4); POTASSIUM,K 3.5 mmol/L (3.5-5.1); PROTEIN TOTAL,TP 6.8 g/dL (6.4-8.2)
[2024-08-17] MEDS: Magnesium Sulfate 2 GM/50 mL 2 GM in Premix Bag 1 BAG IV ONE (19:25)
[2024-08-17] MEDS: fentaNYL 50 MCG/ML SDV IVPUSH ONE (22:03)
[2024-08-17] MEDS: Acetaminophen 500 MG Tab PO ONE (22:04)
[2024-08-17] MEDS: Ketorolac 30 MG/ML SDV IVPUSH ONE (22:04)
[2024-08-17 22:18] VITALS: BP 128/68; PULSE 77
== END 2024-08-17 22:26 | disposition home or self-care (01) ==
LOC: MW.ED 17:27
DX: M54.9 Dorsalgia, unspecified (principal); M25.569 Pain in unspecified knee; G89.29 Other chronic pain; I13.0 Hypertensive heart and chronic kidney disease with heart failure and stage 1 through stage 4 chronic kidney disease, or unspecified chronic kidney disease; I50.9 Heart failure, unspecified; N18.9 Chronic kidney disease, unspecified; R79.89 Other specified abnormal findings of blood chemistry; E11.22 Type 2 diabetes mellitus with diabetic chronic kidney disease; J44.9 Chronic obstructive pulmonary disease, unspecified; Z88.5 Allergy status to narcotic agent; Z88.8 Allergy status to other drugs, medicaments and biological substances; Z79.899 Other long term (current) drug therapy; Z79.4 Long term (current) use of insulin
CPT/HCPCS: 36415; 71045; 80053; 83605; 83690; 83735; 83880; 84484; 85025; 85610; 85730; 87040; 93005; 96361; 96365; 96375; 99285; A9270; J1885; J3010; J3475; J7040; 93010; 99284

== ENCOUNTER 2024-09-10 01:29 | Emergency (ER) | payer MEDICARE, OTHER ==
[2024-09-10 02:51] VITALS: BP 185/95; PULSE 89
== END 2024-09-10 02:49 | disposition home or self-care (01) ==
LOC: MW.ED 01:29
DX: M17.0 Bilateral primary osteoarthritis of knee (principal); I11.0 Hypertensive heart disease with heart failure; I50.9 Heart failure, unspecified; E11.9 Type 2 diabetes mellitus without complications; E66.9 Obesity, unspecified; Z88.5 Allergy status to narcotic agent; Z88.8 Allergy status to other drugs, medicaments and biological substances; Z79.899 Other long term (current) drug therapy; Z79.4 Long term (current) use of insulin; Z71.51 Drug abuse counseling and surveillance of drug abuser
CPT/HCPCS: 72100; 73560; 96372; 99283; J1171; 99282

== ENCOUNTER 2024-11-19 01:24 | Emergency (ER) | payer MEDICARE, OTHER ==
[2024-11-19] MEDS ORDERED: Sodium Chloride 0.9% 2.5 ML Syringe FLUSH PRN (01:27)
[2024-11-19] MEDS ORDERED: Sodium Chloride 0.9% 10 ML Syringe FLUSH PRN (01:27)
[2024-11-19 01:40] LABS: BASOPHILS ABSOLUTE AUTO 0.03 K/uL (0.00-0.20); BASOPHILS PERCENT AUTO 0.7 % (0.0-1.0); EOSINOPHILS ABSOLUTE AUTO 0.13 K/uL (0.00-0.45); EOSINOPHILS PERCENT AUTO 2.9 % (0.0-6.0); IMMATURE GRAN ABSOLUTE AUTO 0.01 K/uL (0.00-0.05); IMMATURE GRAN PERCENT AUTO 0.2 % (0.0-0.4); LYMPHOCYTES ABSOLUTE AUTO 1.96 K/uL (1.00-4.80); LYMPHOCYTES PERCENT AUTO 43.6 % (24.0-44.0); MEAN PLATELET VOLUME 9.0 fL (9.4-12.4); MONOCYTES ABSOLUTE AUTO 0.41 K/uL (0.00-0.80); MONOCYTES PERCENT AUTO 9.1 % (0.0-8.0); NEUTROPHILS ABSOLUTE AUTO 1.96 K/uL (1.80-7.70); NEUTROPHILS PERCENT AUTO 43.5 % (41.0-71.0); NRBC ABSOLUTE 0.00 K/uL (0.00-0.02); NRBC PERCENT 0.0 /100WBC (0.0-0.2); PLATELET COUNT,PLT 148 K/uL (150-400); RED BLOOD CELL COUNT 4.36 M/uL (4.52-5.90); WHITE BLOOD CELL COUNT,WBC 4.50 K/uL (3.9-11.3)
[2024-11-19 02:09] LABS: A/G RATIO 0.6 (0.9-1.6); ASPARTATE AMNIOTRANSFERASE,AST 32.0 IU/L (15-37); BILIRUBIN TOTAL 1.5 mg/dL (0.2-1.0); BLOOD UREA NITROGEN,BUN 8.0 mg/dL (7.0-18.0); CARBON DIOXIDE,CO2 28.1 mmol/L (21.0-32.0); CHLORIDE,CL 100.0 mmol/L (98-107); CREATININE 0.9 mg/dL (0.8-1.3); EST CRCL DRUG DOSING (CG) 73.23 mL/min; GLUCOSE RANDOM 68.0 mg/dL (74-106); POTASSIUM,K 2.9 mmol/L (3.5-5.1); PRO B-TYPE NATRIUR PEPT,BNPPRO 2434.0 pg/mL (0-450); PROTEIN TOTAL,TP 6.9 g/dL (6.4-8.2); SODIUM,NA 139.0 mmol/L (136-148)
[2024-11-19 02:10] LABS: ALANINE AMINOTRANSFERASE,ALT 5.0 IU/L (14-63); ESTIMATED GFR 89.0 mL/min (>60)
[2024-11-19] MEDS: Potassium Chloride 20 MEQ Tab.ER PO ONE (03:03)
[2024-11-19] MEDS: Magnesium Sulfate 2 GM/50 mL 2 GM in Premix Bag 1 BAG IV ONE (03:03)
[2024-11-19] MEDS: Iopamidol 755 MG/ML 500 ML Multipack Bottle IVPUSH STA (03:08)
[2024-11-19 04:38] VITALS: BP 125/78; PULSE 75
== END 2024-11-19 04:44 | disposition home or self-care (01) ==
LOC: MW.ED 01:24
DX: R42 Dizziness and giddiness (principal); E87.6 Hypokalemia; I11.0 Hypertensive heart disease with heart failure; I50.9 Heart failure, unspecified; I25.2 Old myocardial infarction; I25.10 Atherosclerotic heart disease of native coronary artery without angina pectoris; E11.9 Type 2 diabetes mellitus without complications; E66.9 Obesity, unspecified; Z68.26 Body mass index [BMI] 26.0-26.9, adult; Z79.891 Long term (current) use of opiate analgesic; Z88.5 Allergy status to narcotic agent; Z57.31 Occupational exposure to environmental tobacco smoke; Z79.899 Other long term (current) drug therapy
CPT/HCPCS: 36415; 70450; 70496; 70498; 80053; 83690; 83735; 83880; 85025; 93005; 96361; 96365; 96375; 99285; A9270; J3475; J7030; Q9967; 93010; 99284; J1171

== ENCOUNTER 2024-12-26 20:21 | Emergency (ER) | payer MEDICARE, OTHER ==
[2024-12-26 21:51] VITALS: BP 125/77; PULSE 82
[2024-12-26] MEDS: Acetaminophen/oxyCODONE 325-10 MG Tab PO ONE (21:52)
== END 2024-12-26 22:01 | disposition home or self-care (01) ==
LOC: MW.ED 20:21
DX: H04.123 Dry eye syndrome of bilateral lacrimal glands (principal); G89.4 Chronic pain syndrome; I11.0 Hypertensive heart disease with heart failure; I50.9 Heart failure, unspecified; I25.10 Atherosclerotic heart disease of native coronary artery without angina pectoris; I48.91 Unspecified atrial fibrillation; I25.2 Old myocardial infarction; J44.9 Chronic obstructive pulmonary disease, unspecified; E11.9 Type 2 diabetes mellitus without complications; E66.9 Obesity, unspecified; M19.90 Unspecified osteoarthritis, unspecified site; Z79.899 Other long term (current) drug therapy; Z88.8 Allergy status to other drugs, medicaments and biological substances; Z68.24 Body mass index [BMI] 24.0-24.9, adult
CPT/HCPCS: 99283; A9270